=== PATIENT | female | born 1985 | race Caucasian/White ===

== ENCOUNTER 2021-08-02 12:08 | Outpatient (CLI) | payer OTHER, SELFPAY ==
--- NOTE | ~2021-08-02 | US_ITS ---
EXAMINATION: US pelvic complete w TV EXAM DATE: 08/02/2021 12:52 INDICATION: R10.2 - Pelvic and perineal pain. TECHNIQUE: Pelvic transabdominal and transvaginal sonogram was performed. There are multiple graysca le and Doppler images available for interpretation. There is no prior study for comparison. FINDINGS: Uterus measures 7.8 x 4.1 x 4.9 cm, and is morphologically normal. Endometrial stripe harvey sures 9 mm, within normal limits. There are nabothian cysts. There is no free pelvic fluid. Right adnexa: The ovary measures 2.6 x 2.0 x 1.3 cm and is morphologically normal. Ovarian vascular f low confirmed. Left adnexa: The ovary measures 2.4 x 1.4 x 1.2 cm and is morphologically normal. Ovarian vascular fl ow confirmed. IMPRESSION: 1. Unremarkable pelvic ultrasound exam. Reviewed, dictated and finalized at location B.
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
[2021-08-02 12:26] LABS: Basophils Absolute Auto 0.04 K/mm3 (0.00-0.10); Basophils Percent Auto 0.5 % (0.0-1.0); Eosinophils Absolute Auto 0.26 K/mm3 (0.02-0.50); Hematocrit 31.8 % (35.0-49.0); Hemoglobin 9.6 g/dL (12.0-15.0); Immature Granulocyte Absolute 0.03 K/mm3 (0.00-0.00); Immature Granulocyte Percent A 0.4 % (0.0-0.0); Lymphocytes Absolute Auto 2.45 K/mm3 (1.10-4.50); Lymphocytes Percent Auto 28.6 % (18.0-42.0); Mean Corpuscular HGB Conc 30.2 g/dL (32.0-36.0); Mean Corpuscular Hemoglobin 22.9 pg (27.0-31.0); Mean Corpuscular Volume 75.9 fL (78.0-102.0); Mean Platelet Volume 9.3 fl (9.2-11.8); Monocytes Absolute Auto 0.58 K/mm3 (0.10-0.90); Monocytes Percent Auto 6.8 % (2.0-11.0); Neutrophils Absolute Auto 5.2 K/mm3 (1.7-7.2); Neutrophils Percent Auto 60.7 % (50.0-70.0); Platelet Count Result 277 K/mm3 (150-420); Red Blood Count 4.19 M/mm3 (4.20-5.40); Red Cell Distribution Width 18.6 % (11.6-14.4); White Blood Count 8.6 K/mm3 (4.8-10.8)
[2021-08-02 14:49] LABS: Alanine Aminotransferase 23 U/L (14-59); Albumin Level 3.8 g/dL (3.4-5.0); Alkaline Phosphatase 71 U/L (46-116); Anion Gap 10 mmol/L (8-16); Aspartate Amino Transferase 12 U/L (15-37); Bilirubin,Total 0.2 mg/dL (0.00-1.00); Blood Urea Nitrogen 14 mg/dL (7-18); CRP < 0.2 mg/dL (0.0-0.9); Carbon Dioxide 28 mmol/L (21-32); Chloride 104 mmol/L (98-108); Cholesterol 90 mg/dL (0-200); Estimated Glomerular Filt Rate > 60; Glucose 81 mg/dL (70-99); HDL Direct 47 mg/dL (40-60); LDL Cholesterol Calculated 31 mg/dL (<130); Osmolality Calculated 293 mOsm/kg (285-295); Potassium 4.4 mmol/L (3.5-5.1); Sodium 142 mmol/L (136-145); Total Protein 6.9 g/dL (6.4-8.2); Triglycerides 62 mg/dL (0-150)
== END 2021-08-02 12:09 | disposition home or self-care (01) ==
LOC: CHSLAB 12:12
PROVIDERS: PCP Nurse Practitioner Family; Visit Provider Nurse Practitioner Family
DX: Z00.00 Encounter for general adult medical examination without abnormal findings (principal); D64.9 Anemia, unspecified; M51.9 Unspecified thoracic, thoracolumbar and lumbosacral intervertebral disc disorder; R10.2 Pelvic and perineal pain
CPT/HCPCS: 36415; 72100; 76830; 76856; 80053; 80061; 85025; 86140

== ENCOUNTER 2021-10-13 10:10 | Emergency (ER) | payer OTHER, SELFPAY ==
[2021-10-13 10:15] VITALS: BP 121/62; PULSE 97; RESP 20; TEMP 36.4; O2SAT 100
--- NOTE | 2021-10-13 10:46 | PC.NURSE ---
call to [place] [facility] de[facility] to check for DVT. ok to send pt to [place] for ultrasound now.
--- NOTE | 2021-10-13 10:49 | PC.NURSE ---
spoke with pt regarding transport to [place] for uls and return to [facility]. pt voiced understanding and agrees.
[2021-10-13] MEDS: KETOROLAC (*BKC) 60 MG/2 ML VIAL IM (11:05)
--- NOTE | 2021-10-13 11:08 | PC.NURSE ---
call for transport to [place] for ultrasound. [facility] not available . [facility] called. awaiting arrival
[2021-10-13 11:11] LABS: Basophils Absolute Auto 0.04 K/mm3 (0.00-0.10); Basophils Percent Auto 0.5 % (0.0-1.0); Eosinophils Absolute Auto 0.34 K/mm3 (0.02-0.50); Eosinophils Percent Auto 4.4 % (1.0-6.0); Hematocrit 30.8 % (35.0-49.0); Hemoglobin 9.1 g/dL (12.0-15.0); Immature Granulocyte Absolute 0.02 K/mm3 (0.00-0.00); Immature Granulocyte Percent A 0.3 % (0.0-0.0); Lymphocytes Absolute Auto 1.97 K/mm3 (1.10-4.50); Lymphocytes Percent Auto 25.7 % (18.0-42.0); Mean Corpuscular HGB Conc 29.5 g/dL (32.0-36.0); Mean Corpuscular Hemoglobin 22.9 pg (27.0-31.0); Mean Corpuscular Volume 77.4 fL (78.0-102.0); Mean Platelet Volume 9.5 fl (9.2-11.8); Monocytes Absolute Auto 0.46 K/mm3 (0.10-0.90); Neutrophils Absolute Auto 4.8 K/mm3 (1.7-7.2); Neutrophils Percent Auto 63.1 % (50.0-70.0); Platelet Count Result 276 K/mm3 (150-420); Red Blood Count 3.98 M/mm3 (4.20-5.40); Red Cell Distribution Width 16.8 % (11.6-14.4); White Blood Count 7.7 K/mm3 (4.8-10.8)
[2021-10-13 11:12] LABS: Add Urine Microscopic? YES; Appearance Urine Sl Cloudy (Clear); Bilirubin Urine Negative (Negative); Blood Urine 3+ (Negative); Color Urine Yellow (Yellow); Glucose Urine UA Negative (Negative); Ketones Urine Negative (Negative); Leukocyte Esterase Ur Trace (Negative); Nitrate Urine Negative (Negative); Protein Urine 1+ (Negative); Specific Grav Ur >= 1.030 (1.010-1.020); Urobilinogen Urine 0.2 mg/dL (0.2-1.0)
[2021-10-13 11:18] LABS: Amphetamine Screen Urine Positive (Negative); Barbiturate Screen Urine Negative (Negative); Benzodiazepines Screen Urine Negative (Negative); Cannabinoid Screen Urine Positive (Negative); Cocaine Screen Urine Negative (Negative); Methadone Screen Urine Negative (Negative); Opiate Screen Urine Negative (Negative); Phencyclidine Screen Urine Negative (Negative); Pregnancy On Board Control Positive; Urine Pregnancy Test Negative
[2021-10-13 11:19] LABS: Bacteria Urine Trace /hpf; RBC Urine 51-75 /hpf (0-2); Squamous Epithelial Cell Urine Rare /hpf (Few); WBC Urine None seen /hpf (0-3)
--- NOTE | 2021-10-13 11:23 | PC.NURSE ---
pt report to [facility] from [facility]. pt being transported to [place] for ultrasound. will await return.
[2021-10-13 11:26] LABS: Alanine Aminotransferase 19 U/L (14-59); Albumin Level 3.4 g/dL (3.4-5.0); Alkaline Phosphatase 77 U/L (46-116); Anion Gap 9 mmol/L (8-16); Aspartate Amino Transferase 12 U/L (15-37); Bilirubin,Total 0.2 mg/dL (0.00-1.00); Blood Urea Nitrogen 14 mg/dL (7-18); Calcium 8.8 mg/dL (8.5-10.1); Carbon Dioxide 26 mmol/L (21-32); Chloride 104 mmol/L (98-108); Estimated CRCL calculation 96 ml/min; Estimated Glomerular Filt Rate > 60; Glucose 95 mg/dL (70-99); Osmolality Calculated 288 mOsm/kg (285-295); Partial Thromboplastin Time 24.3 SEC (23.90-30.70); Potassium 4.1 mmol/L (3.5-5.1); Prothrombin Time 10.6 Seconds (9.50-12.10); Sodium 139 mmol/L (136-145); Total Protein 7.1 g/dL (6.4-8.2)
--- NOTE | 2021-10-13 13:14 | PC.NURSE ---
pt returns from [place] for ultrasound with [facility]. pt transferred to cot. call cody in reach.
[2021-10-13 13:30] VITALS: BP 119/72; PULSE 85; RESP 20; TEMP 37.1; O2SAT 99
[2021-10-13] MEDS: ENOXAPARIN 100 MG/ML SYRINGE (13:31)
[2021-10-13] MEDS: ENOXAPARIN 1 MG/KG 100 MG SUB-Q (13:31)
--- NOTE | 2021-10-13 13:39 | ED.EXTPRO ---
HPI - Extremity Problem General Source: patient and RN notes reviewed Mode of arrival: ambulatory Limitations: no limitations History of Present Illness Complaint: extremity pain Onset (ago): day(s) (3) Location: right and lower extremity Severity scale (1-10): 5 (5) Quality: aching, dull and constant Radiation: none Relieving factors: nothing Exacerbating factors: weight bearing Associated symptoms: denies other symptoms Related Data Allergies Allergy/AdvReac Type Severity Reaction Status Date / Time No Known Allergies Allergy Unknown Verified 08/02/21 11:27 Review of Systems Review of Systems: All systems reviewed & are unremarkable except as noted in HPI and below PMFSH Past Medical History Medical History Adult general medical examination Bronchospasm Lumbar disc disease Nicotine addiction Recurrent bronchospasm Urolithiasis Surgical History Surgical History H/O tubal ligation History of History of ureter stent Hx of lithotripsy Social History Social History Smoking status: Current every day smoker Alcohol intake: never Substance use: current Substance use type: marijuana Exam Const: General: healthy appearing and no acute distress Nutritional Appearance: obese Orientation/consciousness: patient oriented x3 HENMT: Head: normal to inspection Ears: external ears normal and TM's normal bilaterally General nose exam: Normal external nose present and Normal nares present Mouth: Yes lip normal and Yes moist mucous membranes Teeth and gingiva: dentition normal Eyes: Conjunctivae: conjunctivae normal Pupils: Equal, round and reactive pupils present EOM: EOMs intact bilaterally Neck: Neck: normal visual inspection and no lymphadenopathy Chest: Chest palpation & inspection: normal inspection of the chest Resp: Effort & Inspection: normal respiratory effort Auscultation: clear to auscultation bilaterally Cardio: Rate: regular rate Rhythm: regular rhythm GI: GI Palp: Yes Soft to palpation and No Tenderness to palpation present (GI) Percussion: Yes normal to percussion Auscultation: normal bowel sounds : General: Yes bladder normal to palpation and Yes no CVA tenderness Back/Spine/Pelvis: Back: no CVA tenderness Skin: General skin exam: normal color Rashes: no rashes Neuro: General: patient oriented x3, moves all extremities, no meningeal signs, no focal motor deficits and CN's II-XI intact bilaterally Extrem: Other: minimal right calf tenderness with no acute redness, swelling or deformity. Psych: Appearance: grossly normal and well kempt Mental Status: mental status grossly normal Affect: normal affect Thought content: Yes Normal thought content present Course Course Emergency Course: Pt was less pain-ful in the ED. Pt wanted to go home and understood the home Tx of the localized right peroneal DVT. for early PMD f/u. Reevaluation(s) Date: 10/13/21 Time: 11:07 Vital Signs Vital signs: Vital Signs Temperature 36.4 C L 10/13/21 10:15 Pulse Rate 97 10/13/21 10:15 Respiratory Rate 20 10/13/21 10:15 Blood Pressure 121/62 10/13/21 10:15 Pulse Oximetry 100 10/13/21 10:15 Temperature 37.1 C 10/13/21 13:53 Pulse Rate 85 10/13/21 13:53 Respiratory Rate 20 10/13/21 13:53 Blood Pressure 119/73 10/13/21 13:53 Pulse Oximetry 99 10/13/21 13:53 MDM - Extremity (Nontraumatic) Differential Diagnosis Differential diagnosis: Likely deep vein thrombosis of lower extremity Medical Records Attestation: I reviewed the patient's medical records. Lab Data Result diagrams: 10/13/21 10:46 10/13/21 10:46 Labs: Lab Results 10/13/21 10/13/21 10/13/21 Range/Units 10:46 10:46 10:46 WBC 7.7 (4.8-10.8) K/mm3 RBC 3.98 L (4.20-5.40) M/
[2021-10-13 13:53] VITALS: BP 119/73; PULSE 85; RESP 20; TEMP 37.1; O2SAT 99
== END 2021-10-13 14:19 | disposition home or self-care (01) ==
PROVIDERS: Emergency Provider Emergency Medicine; PCP Nurse Practitioner Family
DX: I82.409 Acute embolism and thrombosis of unspecified deep veins of unspecified lower extremity (principal)
CPT/HCPCS: 36415; 80053; 80307; 81001; 81025; 85025; 85380; 85610; 85730; 93971; 96372; 99283; 99284; J1650; J1885

== ENCOUNTER 2021-10-13 11:59 | Outpatient (CLI) | payer OTHER, SELFPAY ==
--- NOTE | ~2021-10-13 | US_ITS ---
EXAMINATION: US venous doppler LE RT DATE: 10/13/2021 12:44 INDICATION: Right lower limb pain TECHNIQUE: Grayscale ultrasound images without and with compression and Doppler ultrasound images of the right lower extremity veins were obtained. COMPARISON: None. FINDINGS: The visualized portions of right common femoral vein, profunda (deep) femoral vein, femoral vein, pop liteal vein, posterior tibial veins, gastrocnemius vein and greater saphenous vein outflow are patent . Noncompressible thrombus in the right peroneal veins. IMPRESSION: 1. [id number] deep venous thrombosis in the right peroneal veins. Reviewed, dictated and finalized at location A. FF COUNSEL IMPRESSION: 1. [id number] deep venous thrombosis in the right peroneal veins.
== END 2021-10-13 12:00 | disposition home or self-care (01) ==
PROVIDERS: PCP Nurse Practitioner Family; Visit Provider Nurse Practitioner Family
DX: I82.451 Acute embolism and thrombosis of right peroneal vein (principal)
CPT/HCPCS: 93971

== ENCOUNTER 2022-04-22 15:05 | Emergency (ER) | payer OTHER, SELFPAY ==
[2022-04-22 15:30] VITALS: BP 152/70; PULSE 87; RESP 20; TEMP 37.2; O2SAT 97
--- NOTE | 2022-04-22 15:51 | ED.DENTAL ---
HPI - Dental/Oral General Chief complaint: Dental/Oral Stated complaint: abscess in mouth Time Seen by Provider: 04/22/22 15:08 Source: patient and RN notes reviewed Mode of arrival: ambulatory Limitations: no limitations History of Present Illness MD Complaint: tooth pain Location: Tooth # (6) Onset (ago): day(s) (2) Severity: moderate Severity scale (1-10): 7 Relieving factors: NSAIDs Exacerbating factors: nothing Context: poor dental care Associated symptoms: gum swelling Treatment prior to arrival: none Related Data Allergies Allergy/AdvReac Type Severity Reaction Status Date / Time No Known Allergies Allergy Unknown Verified 04/26/22 08:05 Review of Systems Review of Systems: All systems reviewed & are unremarkable except as noted in HPI and below Constitutional: Constitutional: Reports no additional constitutional complaints Eyes: Eyes: Reports no additional eye complaints ENT: Reports system reviewed and no additional complaints, except as documented Cardiovascular: Cardiovascular: Reports no additional cardiovascular complaints Respiratory: Respiratory: Reports no additional respiratory complaints Gastrointestinal: Gastrointestinal: Reports no additional gastrointestinal complaints Genitourinary: Genitourinary: Reports no additional female genitourinary complaints Musculoskeletal: Musculoskeletal: Reports no additional musculoskeletal complaints Integumentary/Breasts: Skin/Breast: Reports system reviewed and no additional complaints, except as docu Neurologic: Reports system reviewed and no additional complaints, except as documented Psychiatric: Psychiatric: Reports no additional psychiatric complaints Endocrine: Endocrine: Reports no additional endocrine complaints Hematologic/Lymphatic: Hematologic/Lymphatic: Reports no additional hematologic/lymphatic complaints Allergic/Immunologic: Allergic/Immunologic: Reports no additional allergic/immunologic complaints PMFSH Past Medical History Medical History (Updated 05/26/22 @ 08:51 by Jonelle Castorena MD) Adult general medical examination Bronchospasm Dental caries Lumbar disc disease Nicotine addiction Recurrent bronchospasm Urolithiasis Surgical History Surgical History H/O tubal ligation History of History of ureter stent Hx of lithotripsy Social History Social History Smoking status: Current every day smoker Alcohol intake: never Substance use: current Substance use type: marijuana Exam Const: General: healthy appearing and no acute distress Nutritional Appearance: well nourished Orientation/consciousness: patient oriented x3 Limitations: no limitations HENMT: Head: normal to inspection Ears: external ears normal, TM's normal bilaterally and EAC's normal General nose exam: Normal external nose present and Normal nares present Face and sinus: normal facial exam and sinuses nontender Mouth: Yes Normal oral and palatal mucosa present and Yes moist mucous membranes Teeth and gingiva: abnormal tooth and associated gingiva (mildly swollen right upper pre-molar gum. no acute bleeding or pus.) Throat: posterior oropharynx normal Eyes: Conjunctivae: conjunctivae normal Pupils: Equal, round and reactive pupils present EOM: EOMs intact bilaterally Neck: Neck: normal visual inspection, no lymphadenopathy and no meningeal signs Chest: Chest palpation & inspection: normal inspection of the chest Resp: Effort & Inspection: normal respiratory effort Auscultation: clear to auscultation bilaterally Cardio: Rate: regular rate Rhythm: regular rhythm GI: GI Palp: Yes Soft to palpation and No Tenderness to palpation present (GI) Auscultation: normal bowel sounds : General: Yes bladder normal to palpation and Yes no CVA tenderness Bimanual exam- vagina & uterus: bladder normal to palpation Back/Spine/P
[2022-04-22] MEDS: KETOROLAC (*BKC) 60 MG/2 ML VIAL IM (16:19)
[2022-04-22] MEDS: cefTRIAXone 1 GM, LIDOCAINE HCL 1% LOCAL INJ 2.1 ML IM (16:19)
[2022-04-22 16:50] VITALS: BP 131/68; PULSE 61; RESP 20; TEMP 36.9; O2SAT 98
== END 2022-04-22 17:00 | disposition home or self-care (01) ==
PROVIDERS: Emergency Provider Emergency Medicine; PCP Nurse Practitioner Family
DX: K02.9 Dental caries, unspecified (principal); K04.7 Periapical abscess without sinus; J44.9 Chronic obstructive pulmonary disease, unspecified
CPT/HCPCS: 96372; 99283; J0696; J1885

== ENCOUNTER 2022-09-21 16:18 | Emergency (ER) | payer OTHER, SELFPAY ==
--- NOTE | ~2022-09-21 | XR_ITS ---
EXAMINATION: XR foot LT min 3V DATE: 09/21/2022 17:18 INDICATION: Puncture wound at the plantar aspect of the left foot. Assess for foreign body. TECHNIQUE: Dorsoplantar, two oblique and lateral views of the left foot were obtained. COMPARISON: None. FINDINGS: Bone alignment is normal. No fracture. Joint spaces are normal. Small plantar calcaneal spur. No kitty ical erosions or periosteal reaction. No radiopaque or lucent foreign bodies identified. IMPRESSION: 1. No acute osseous abnormality or evident foreign bodies. Of note again of material such as would be of similar density as the surrounding soft tissues and occult on plain radiographs. Reviewed, dictated and finalized at location B. IMPRESSION: 1. No acute osseous abnormality or evident foreign bodies. Of note again of mat erial such as would be of similar density as the surrounding soft tissues and o ccult on plain radiographs.
--- NOTE | 2022-09-21 16:19 | ED.LOWEXIN ---
HPI - Extremity Injury (Lower) General Chief Complaint: Extremity Injury, Upper Stated Complaint: left foot injury Time Seen by Provider: 09/21/22 16:19 Source: patient and RN notes reviewed Mode of arrival: wheelchair Limitations: no limitations History of Present Illness HPI Narrative: Patient states that she got a piece of wood that was stuck on the carpet impaled into her left foot last evening. She did not have a ride and waited till today when she could find transportation. She denies any fever chills. She continues to have severe pain on the plantar aspect of her left foot. complaint: foot injury Onset (ago): day(s) (1) Injury: Left: foot Type of Injury: puncture wound Place: home Severity: severe Relieving factors: nothing Exacerbating factors: weight bearing, movement and palpation Context: walking Associated symptoms: unable to bear weight Other symptoms: none Related Data Home Medications Medication Instructions Recorded Confirmed hydrocodone 5 mg-acetaminophen 325 1 tablet PO Q6-8H PRN pain 07/26/22 09/21/22 mg tablet Allergies Allergy/AdvReac Type Severity Reaction Status Date / Time No Known Allergies Allergy Unknown Verified 07/26/22 10:42 Review of Systems Review of Systems: All systems reviewed & are unremarkable except as noted in HPI and below PMFSH Past Medical History Medical History (Updated 09/21/22 @ 17:31 by Adithya Ling MD) Adult BMI > 30 (10/17/18) Adult general medical examination Bronchospasm Dental caries DVT (deep venous thrombosis) Lumbar disc disease Nicotine addiction Recurrent bronchospasm Urolithiasis Surgical History Surgical History H/O tubal ligation History of History of ureter stent Hx of lithotripsy Social History Social History Smoking status: Current every day smoker Alcohol intake: never Substance use: current Substance use type: marijuana Exam Const: General: healthy appearing, no acute distress and alert Nutritional Appearance: well nourished and obese Orientation/consciousness: patient oriented x3 Limitations: no limitations Other: Female tech in room during examination. HENMT: Head: normal to inspection Ears: external ears normal Face and sinus: normal facial exam Mouth: Yes moist mucous membranes Eyes: Conjunctivae: conjunctivae normal Pupils: Equal, round and reactive pupils present EOM: EOMs intact bilaterally Neck: Neck: normal visual inspection Resp: Effort & Inspection: normal respiratory effort Auscultation: clear to auscultation bilaterally Cardio: Rate: regular rate Rhythm: regular rhythm GI: GI Palp: Yes Soft to palpation and No Tenderness to palpation present (GI) Auscultation: normal bowel sounds Back/Spine/Pelvis: Cervical Spine: cervical ROM normal Thoracic/Lumbar Spine: thoraco-lumbar ROM normal Skin: General skin exam: normal color Rashes: no rashes Neuro: General: patient oriented x3, moves all extremities, no focal motor deficits and CN's II-XI intact bilaterally Speech: normal speech Extrem: General: normal exam except as noted and no clubbing, cyanosis or edema Left lower extremity: foot Details: tenderness Location: of the plantar foot Location: distally, ecchymosis plantar distal single and puncture wound plantar distal single Psych: Mental Status: mental status grossly normal Attitude: cooperative Course Vital Signs Vital signs: Vital Signs Temperature 36.5 C 09/21/22 16:22 Pulse Rate 100 09/21/22 16:22 Respiratory Rate 20 09/21/22 16:22 Blood Pressure 100/53 L 09/21/22 16:22 Pulse Oximetry 100 09/21/22 16:22 Oxygen Delivery Room Air 09/21/22 16:22 Temperature 36.9 C 09/21/22 18:08 Pulse Rate 78 09/21/22 18:08 Respiratory Rate 20 09/21/22 18:08 Blood Pressure 100/53 L 09/21/22 18:08 Pulse Oximetry 97 09/21/22 18:0
[2022-09-21 16:22] VITALS: BP 100/53; PULSE 100; RESP 20; TEMP 36.5; O2SAT 100
[2022-09-21] MEDS: LIDOCAINE HCL 1% LOCAL INJ 10 ML VIAL INFILTRATE (16:55)
[2022-09-21 18:08] VITALS: BP 100/53; PULSE 78; RESP 20; TEMP 36.9; O2SAT 97
== END 2022-09-21 17:35 | disposition home or self-care (01) ==
PROVIDERS: Emergency Provider Emergency Medicine
DX: S91.332A Puncture wound without foreign body, left foot, initial encounter (principal); W45.8XXA Other foreign body or object entering through skin, initial encounter
CPT/HCPCS: 73630; 99283

== ENCOUNTER 2022-10-08 14:31 | Emergency (ER) | payer OTHER, SELFPAY ==
--- NOTE | 2022-10-08 15:39 | PC.NURSE ---
Addendum entered by Blank Red RN 10/08/22 15:42: registration just made rn aware of patient leaving. Original Note: ER is full, patient left without being seen at 1520.
== END 2022-10-08 15:05 | disposition left against medical advice (07) ==
PROVIDERS: Emergency Provider Emergency Medicine; PCP Family Medicine
DX: Z04.9 Encounter for examination and observation for unspecified reason (principal)
CPT/HCPCS: 99199

== ENCOUNTER 2022-10-29 13:11 | Emergency (ER) | payer OTHER, SELFPAY ==
[2022-10-29 13:15] VITALS: BP 133/74; PULSE 106; RESP 18; TEMP 36.9; O2SAT 100
--- NOTE | 2022-10-29 14:04 | ED.URI ---
HPI - URI/Sore Throat General Chief Complaint: Upper Respiratory Infection Stated Complaint: Flu exposure,ear and throat sore Time Seen by Provider: 10/29/22 13:52 Source: patient Mode of arrival: ambulatory Limitations: no limitations History of Present Illness HPI Narrative: 37-year-old female smoker presents with a 2 week history of -- nasal congestion with yellow discharge -- sore throat -- cough with mucopurulent sputum -- patient developed left ear pain after she was attempting to clean her left ear. patient's nephews who visiting with diagnosed with influenza. No fever or chest pain. MD elicited complaint: cough, sore throat, rhinorrhea and nasal congestion Onset (ago): week(s) ( For past 2 weeks) Consistency: constant Severity: moderate Description of mucous: yellow Able to tolerate fluids by mouth: No Exacerbating factors: nothing Relieving factors: nothing Context: sick contacts Associated symptoms: rhinorrhea, nasal congestion, sore throat, cough and ear pain Related Data Allergies Allergy/AdvReac Type Severity Reaction Status Date / Time No Known Allergies Allergy Unknown Verified 10/29/22 13:29 Review of Systems Review of Systems: All systems reviewed & are unremarkable except as noted in HPI and below Constitutional: Constitutional: Reports as per HPI and Reports no additional constitutional complaints Eyes: Eyes: Reports as per HPI and Reports no additional eye complaints ENT: Reports system reviewed and no additional complaints, except as documented, Reports nasal congestion and Reports sore throat Cardiovascular: Cardiovascular: Reports as per HPI and Reports no additional cardiovascular complaints Respiratory: Respiratory: Reports as per HPI, Reports no additional respiratory complaints, Reports chest congestion and Reports cough Gastrointestinal: Gastrointestinal: Reports as per HPI and Reports no additional gastrointestinal complaints Genitourinary: Genitourinary: Reports no additional female genitourinary complaints and Reports as per HPI Musculoskeletal: Musculoskeletal: Reports no additional musculoskeletal complaints and Reports as per HPI Integumentary/Breasts: Skin/Breast: Reports system reviewed and no additional complaints, except as docu and Reports as per HPI Neurologic: Reports system reviewed and no additional complaints, except as documented and Reports as per HPI Psychiatric: Psychiatric: Reports no additional psychiatric complaints and Reports as per HPI Endocrine: Endocrine: Reports no additional endocrine complaints and Reports as per HPI Hematologic/Lymphatic: Hematologic/Lymphatic: Reports no additional hematologic/lymphatic complaints and Reports as per HPI Allergic/Immunologic: Allergic/Immunologic: Reports no additional allergic/immunologic complaints and Reports as per [facility] Past Medical History Medical History Adult BMI > 30 (10/17/18) Adult general medical examination Bronchospasm Dental caries DVT (deep venous thrombosis) Lumbar disc disease Nicotine addiction Recurrent bronchospasm Urolithiasis Surgical History Surgical History H/O tubal ligation History of History of ureter stent Hx of lithotripsy Social History Social History Smoking status: Current every day smoker Alcohol intake: never Substance use: current Substance use type: marijuana Exam Const: General: healthy appearing and no acute distress Nutritional Appearance: well nourished Orientation/consciousness: patient oriented x3 Limitations: no limitations HENMT: Head: normal to inspection Ears: external ears normal ( Left ear otitis externa. Right ear canal has wax which obscures the tymp) Face/Nose/Sinus: Normal external nose present Face and sinus: normal facial exam Mouth: Yes Normal oral a
[2022-10-29] MEDS: KETOROLAC 30 MG/ML VIAL (*BKC) IM (14:17)
--- NOTE | 2022-10-29 14:21 | PC.NURSE ---
PT IS SITTING ON STRETCHER WATCHING TV AT THIS TIME AWAITING RESULTS. PT HAS HER LEFT HAND OVER HER EAR AT THIS TIME. MEDICATION GIVEN ORDERED WITHOUT DIFFICULTY. WILL CONTINUE TO MONITOR. PT DENIES ANY NEEDS OR COMPLAINTS AT PRESENT.
[2022-10-29 14:47] LABS: Influenza A QL RT-PCR Positive (Negative); Influenza B QL RT-PCR Negative (Negative); RSV RNA, RT-PCR Negative (Negative); SARS-CoV-2 RNA PCR Negative (Negative)
[2022-10-29 15:01] VITALS: BP 121/60; PULSE 93; RESP 16; TEMP 37.2; O2SAT 100
[2022-10-29 15:22] LABS: Strep Group A RT-PCR Not Detected (Negative)
== END 2022-10-29 15:01 | disposition home or self-care (01) ==
PROVIDERS: Emergency Provider Internal Medicine Critical Care Medicine; PCP Family Medicine
DX: J11.1 Influenza due to unidentified influenza virus with other respiratory manifestations (principal); H60.92 Unspecified otitis externa, left ear; Z20.822 Contact with and (suspected) exposure to COVID-19
CPT/HCPCS: 87637; 87651; 96372; 99283; J1885

== ENCOUNTER 2022-11-05 18:09 | Emergency (ER) | payer OTHER, SELFPAY ==
--- NOTE | 2022-11-05 18:23 | ED.EAR ---
HPI - Ear Problem General Chief complaint: Ear Stated complaint: possible ear infection, unable to hear Time Seen by Provider: 11/05/22 18:23 Source: patient and RN notes reviewed Mode of arrival: ambulatory Limitations: no limitations History of Present Illness Complaint: decreased hearing Location: right ear Duration: constant Severity: moderate Relieving factors: nothing Exacerbating factors: nothing Discharge from ear: Reports no Associated symptoms ear: decreased hearing Treatment prior to arrival: none Related Data Allergies Allergy/AdvReac Type Severity Reaction Status Date / Time No Known Allergies Allergy Unknown Verified 11/05/22 18:38 Review of Systems Review of Systems: All systems reviewed & are unremarkable except as noted in HPI and below PMFSH Past Medical History Medical History Adult BMI > 30 (10/17/18) Adult general medical examination Bronchospasm Dental caries DVT (deep venous thrombosis) Lumbar disc disease Nicotine addiction Recurrent bronchospasm Urolithiasis Surgical History Surgical History H/O tubal ligation History of History of ureter stent Hx of lithotripsy Social History Social History Smoking status: Current every day smoker Alcohol intake: never Substance use: current Substance use type: marijuana Exam Const: General: healthy appearing, no acute distress and alert Nutritional Appearance: well nourished and obese morbidly obese Orientation/consciousness: patient oriented x3 Limitations: no limitations HENMT: Head: normal to inspection Ears: TM normal on the left and Abnormal EAC present excessive cerumen on the left; no EA tenderness Eyes: Conjunctivae: conjunctivae normal Pupils: Equal, round and reactive pupils present EOM: EOMs intact bilaterally Neck: Neck: normal visual inspection Resp: Effort & Inspection: normal respiratory effort Auscultation: clear to auscultation bilaterally Cardio: Rate: regular rate Rhythm: regular rhythm GI: GI Palp: Yes Soft to palpation and No Tenderness to palpation present (GI) Auscultation: normal bowel sounds Back/Spine/Pelvis: Cervical Spine: cervical ROM normal Thoracic/Lumbar Spine: thoraco-lumbar ROM normal Skin: General skin exam: normal color Neuro: General: patient oriented x3, moves all extremities, no focal motor deficits and CN's II-XI intact bilaterally Speech: normal speech Gait exam (Neuro): Normal gait present Extrem: General: normal to inspection and no clubbing, cyanosis or edema Psych: Mental Status: mental status grossly normal Affect: normal affect Attitude: cooperative Course Course Emergency Course: Nurse was able to use peroxide and warm water to flush out the cerumen from the ear canal. Patient can now hear better. Vital Signs Vital signs: Vital Signs Temperature 38.9 C H 11/05/22 18:28 Pulse Rate 91 11/05/22 18:28 Respiratory Rate 18 11/05/22 18:28 Blood Pressure 138/91 H 11/05/22 18:28 Pulse Oximetry 99 11/05/22 18:28 Oxygen Delivery Room Air 11/05/22 18:28 Temperature 38.9 C H 11/05/22 18:28 Pulse Rate 91 11/05/22 18:28 Respiratory Rate 18 11/05/22 18:28 Blood Pressure 138/91 H 11/05/22 18:28 Pulse Oximetry 99 11/05/22 18:28 Oxygen Delivery Room Air 11/05/22 18:28 Medical Decision Making Vital Signs Vital Signs: Vital Signs Temperature 38.9 C H 11/05/22 18:28 Pulse Rate 91 11/05/22 18:28 Respiratory Rate 18 11/05/22 18:28 Blood Pressure 138/91 H 11/05/22 18:28 Pulse Oximetry 99 11/05/22 18:28 Oxygen Delivery Room Air 11/05/22 18:28 Temperature 38.9 C H 11/05/22 18:28 Pulse Rate 91 11/05/22 18:28 Respiratory Rate 18 11/05/22 18:28 Blood Pressure 138/91 H 11/05/22 18:28 Pulse Oximetry 99 11/05/22 18:28 Oxygen Delive
[2022-11-05 18:28] VITALS: BP 138/91; PULSE 91; RESP 18; TEMP 38.9; O2SAT 99
--- NOTE | 2022-11-05 18:57 | PC.NURSE ---
After pt soaked ear with peroxide for about 10 minutes, irrigated right ear with elephant ear/warm water and was able to clear the wax out, pt able to hear now.
[2022-11-05 19:20] VITALS: BP 130/74; PULSE 87; RESP 18; TEMP 36.7; O2SAT 99
== END 2022-11-05 19:27 | disposition home or self-care (01) ==
PROVIDERS: Emergency Provider Emergency Medicine
DX: H61.21 Impacted cerumen, right ear (principal); F17.200 Nicotine dependence, unspecified, uncomplicated
CPT/HCPCS: 69209; 99282

== ENCOUNTER 2022-12-17 18:00 | Emergency (ER) | payer OTHER, SELFPAY ==
[2022-12-17 18:11] VITALS: BP 143/93; PULSE 110; RESP 16; TEMP 36.6; O2SAT 99
--- NOTE | 2022-12-17 18:15 | ED.FEMALEGU ---
HPI - Female Genitourinary General Chief complaint: Vaginal Bleeding Stated complaint: period since new years yuriy Time Seen by Provider: 12/17/22 18:15 Source: patient Mode of arrival: ambulatory Limitations: no limitations History of Present Illness HPI Narrative: 37-year-old female smoker with extensive dental caries, kidney stones, intermittent bronchospasm, right peroneal DVT diagnosed on 10/13/2022 on Eliquis( the patient stopped taking Eliquis 1 week ago as she ran out of her medication) presents to the ER with -- ongoing vaginal bleeding since 11/17/2022. Her bleeding transiently improved but lately she has been passing blood clots. -- Feels lightheaded and dizzy for the past 1 week. No abdominal pain. Patient is A0 status post BTL. MD elicited complaint: vaginal bleeding Pertinent past history: tubal ligation Onset (ago): month(s) ( One month ago) Severity: severe Vaginal bleeding: heavy Exacerbating factors: none Relieving factors: none Associated symptoms: other ( lightheaded and dizzy) Patient : No Date of Last Menstrual Period: 11/17/22 Related Data Home Medications Medication Instructions Recorded Confirmed No Home Medications 12/17/22 12/17/22 Allergies Allergy/AdvReac Type Severity Reaction Status Date / Time No Known Allergies Allergy Unknown Verified 12/17/22 18:16 Review of Systems Review of Systems: All systems reviewed & are unremarkable except as noted in HPI and below Constitutional: Constitutional: Reports as per HPI and Reports no additional constitutional complaints Eyes: Eyes: Reports as per HPI and Reports no additional eye complaints ENT: Reports system reviewed and no additional complaints, except as documented and Reports as per HPI Cardiovascular: Cardiovascular: Reports as per HPI and Reports no additional cardiovascular complaints Respiratory: Respiratory: Reports as per HPI and Reports no additional respiratory complaints Gastrointestinal: Gastrointestinal: Reports as per HPI and Reports no additional gastrointestinal complaints Genitourinary: Genitourinary: Reports no additional female genitourinary complaints and Reports abnormal vaginal bleeding Musculoskeletal: Musculoskeletal: Reports no additional musculoskeletal complaints and Reports as per HPI Integumentary/Breasts: Skin/Breast: Reports system reviewed and no additional complaints, except as docu and Reports as per HPI Neurologic: Reports system reviewed and no additional complaints, except as documented and Reports as per HPI Psychiatric: Psychiatric: Reports no additional psychiatric complaints and Reports as per HPI Endocrine: Endocrine: Reports no additional endocrine complaints and Reports as per HPI Hematologic/Lymphatic: Hematologic/Lymphatic: Reports no additional hematologic/lymphatic complaints and Reports as per HPI Allergic/Immunologic: Allergic/Immunologic: Reports no additional allergic/immunologic complaints and Reports as per HPI PMFSH Past Medical History Medical History Adult BMI > 30 (10/17/18) Adult general medical examination Bronchospasm Dental caries DVT (deep venous thrombosis) Lumbar disc disease Nicotine addiction Recurrent bronchospasm Urolithiasis Surgical History Surgical History H/O tubal ligation History of History of ureter stent Hx of lithotripsy Social History Social History Smoking status: Current every day smoker Alcohol intake: never Substance use: current Substance use type: marijuana Living arrangements: with family Exam Narrative: patient is not orthostatic. Const: General: no acute distress Nutritional Appearance: well nourished Orientation/consciousness: patient oriented x3 Limitations: no limitations HENMT: Head: normal to inspection Ea
[2022-12-17 18:52] LABS: Basophils Absolute Auto 0.03 K/mm3 (0.00-0.10); Basophils Percent Auto 0.4 % (0.0-1.0); Eosinophils Absolute Auto 0.23 K/mm3 (0.02-0.50); Eosinophils Percent Auto 2.8 % (1.0-6.0); Hematocrit 39.2 % (35.0-49.0); Hemoglobin 11.6 g/dL (12.0-15.0); Immature Granulocyte Absolute 0.02 K/mm3 (0.00-0.00); Immature Granulocyte Percent A 0.2 % (0.0-0.0); Lymphocytes Absolute Auto 1.82 K/mm3 (1.10-4.50); Lymphocytes Percent Auto 22.1 % (18.0-42.0); Mean Corpuscular HGB Conc 29.6 g/dL (32.0-36.0); Mean Corpuscular Volume 77.8 fL (78.0-102.0); Mean Platelet Volume 9.8 fl (9.2-11.8); Monocytes Absolute Auto 0.49 K/mm3 (0.10-0.90); Neutrophils Absolute Auto 5.6 K/mm3 (1.7-7.2); Neutrophils Percent Auto 68.5 % (50.0-70.0); Platelet Count Result 308 K/mm3 (150-420); Red Blood Count 5.04 M/mm3 (4.20-5.40); Red Cell Distribution Width 17.3 % (11.6-14.4); White Blood Count 8.2 K/mm3 (4.8-10.8)
[2022-12-17 19:07] LABS: Partial Thromboplastin Time 28.4 SEC (23.90-30.70); Prothrombin Time 11.2 Seconds (9.50-12.10)
[2022-12-17 19:13] LABS: Lactic Acid Reflex 1.4 mmol/L (0.4-2.0)
[2022-12-17 19:16] LABS: Alanine Aminotransferase 36 U/L (14-59); Albumin Level 3.6 g/dL (3.4-5.0); Alkaline Phosphatase 86 U/L (46-116); Anion Gap 9 mmol/L (8-16); Aspartate Amino Transferase 20 U/L (15-37); Bilirubin,Total 0.2 mg/dL (0.00-1.00); Blood Urea Nitrogen 10 mg/dL (7-18); Calcium 8.7 mg/dL (8.5-10.1); Carbon Dioxide 28 mmol/L (21-32); Chloride 104 mmol/L (98-108); Estimated Glomerular Filt Rate > 60; Glucose 109 mg/dL (70-99); Osmolality Calculated 292 mOsm/kg (285-295); Potassium 3.9 mmol/L (3.5-5.1); Sodium 141 mmol/L (136-145); Thyroid Stimulating Hormone 0.68 uIU/mL (0.36-3.74); Total Protein 7.5 g/dL (6.4-8.2)
[2022-12-17 19:26] LABS: SPREG INTERNAL CONTROL Positive; Serum Qual hCG Negative
[2022-12-17 19:37] VITALS: BP 137/87; PULSE 91; O2SAT 100
== END 2022-12-17 19:41 | disposition home or self-care (01) ==
PROVIDERS: Emergency Provider Internal Medicine Critical Care Medicine
DX: N92.0 Excessive and frequent menstruation with regular cycle (principal); D62 Acute posthemorrhagic anemia; F17.200 Nicotine dependence, unspecified, uncomplicated; Z86.718 Personal history of other venous thrombosis and embolism
CPT/HCPCS: 36415; 80053; 83605; 84443; 84703; 85025; 85610; 85730; 99283

== ENCOUNTER 2023-01-09 15:54 | Outpatient (CLI) | payer OTHER, SELFPAY ==
--- NOTE | ~2023-01-09 | XR_ITS ---
EXAMINATION: XR chest 2V 01/09/2023 16:30 INDICATION: Shortness of breath PROCEDURE: 2 view chest COMPARISON: Comparison to multiple prior studies sequentially, with oldest reviewed study dated 05/16/2006. FINDINGS: The lungs are clear. The cardiomediastinal silhouette is within normal limits. There are no pleural effusions. There is no pneumothorax suspected. IMPRESSION: 1: NO ACUTE CARDIOPULMONARY DISEASE. Reviewed, dictated and finalized at location B. 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
[2023-01-09 16:18] LABS: Basophils Absolute Auto 0.05 K/mm3 (0.00-0.10); Basophils Percent Auto 0.5 % (0.0-1.0); Eosinophils Absolute Auto 0.14 K/mm3 (0.02-0.50); Eosinophils Percent Auto 1.3 % (1.0-6.0); Hematocrit 27.6 % (35.0-49.0); Hemoglobin 7.9 g/dL (12.0-15.0); Immature Granulocyte Absolute 0.04 K/mm3 (0.00-0.00); Immature Granulocyte Percent A 0.4 % (0.0-0.0); Lymphocytes Absolute Auto 1.71 K/mm3 (1.10-4.50); Lymphocytes Percent Auto 16.4 % (18.0-42.0); Mean Corpuscular HGB Conc 28.6 g/dL (32.0-36.0); Mean Corpuscular Hemoglobin 21.8 pg (27.0-31.0); Mean Corpuscular Volume 76.2 fL (78.0-102.0); Mean Platelet Volume 10.2 fl (9.2-11.8); Monocytes Absolute Auto 0.65 K/mm3 (0.10-0.90); Monocytes Percent Auto 6.2 % (2.0-11.0); Neutrophils Absolute Auto 7.8 K/mm3 (1.7-7.2); Neutrophils Percent Auto 75.2 % (50.0-70.0); Platelet Count Result 302 K/mm3 (150-420); Red Blood Count 3.62 M/mm3 (4.20-5.40); Red Cell Distribution Width 16.5 % (11.6-14.4); White Blood Count 10.4 K/mm3 (4.8-10.8)
[2023-01-09 16:41] LABS: HIV 1 P24 AG Negative (Negative); HIV 1/2 AB Negative (Negative)
[2023-01-09 16:47] LABS: Ferritin 3 ng/mL (8-252); Iron 10 ug/dL (50-170); Percent Iron Saturation 2 % (12-57)
[2023-01-11 16:54] LABS: RPR Screen Non-Reactive (Non-Reactive)
[2023-01-13 03:00] LABS: Hepatitis C Signal to Cutoff 0.01 ratio (<1.00); Hepatitis C Virus Antibody Nonreactive (Nonreactive)
[2023-01-15 14:55] LABS: HSV 1 IgM Screen Negative (Negative); HSV 2 IgM Screen Negative (Negative)
== END 2023-01-09 15:55 | disposition home or self-care (01) ==
LOC: CHSLAB 15:56
PROVIDERS: PCP Nurse Practitioner Family; Visit Provider Nurse Practitioner Family
DX: D64.9 Anemia, unspecified (principal); I82.409 Acute embolism and thrombosis of unspecified deep veins of unspecified lower extremity; Z11.3 Encounter for screening for infections with a predominantly sexual mode of transmission
CPT/HCPCS: 36415; 71046; 82728; 83540; 83550; 85025; 86592; 86695; 86696; 86703; 86803; 87491; 87591

== ENCOUNTER 2023-01-11 10:27 | Outpatient (CLI) | payer OTHER, SELFPAY ==
--- NOTE | ~2023-01-11 | US_ITS ---
Pelvic ultrasound. Clinical History: Excessive and frequent menstruation Technique: Realtime transabdominal and transvaginal scanning of the pelvis was performed. Color flow Doppler and Doppler spectral analysis were performed. Findings: The uterus is anteverted. The endometrial stripe has a thickness of 8 mm. There is a 1.1 x 1.2 cm hyperechoic possible mass at the distal endometrial cavity, which could reflect endometrial p olyp or possibly some mucosal fibroid. Neither ovary seen. No adnexal mass seen. There is no evidence of free fluid in the cul de sac. Impression: Questionable 1.1 x 1.2 cm endometrial polyp or subserosal fibroid. Consider sonohysterogram, MR, or h ysteroscopy for further evaluation. Reviewed, dictated and finalized at location . 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 Consider son ohysterogram, MR, or hysteroscopy for further evaluation.
== END 2023-01-11 10:28 | disposition home or self-care (01) ==
LOC: CHSIMG 10:29
PROVIDERS: PCP Nurse Practitioner Family; Visit Provider Nurse Practitioner Family
DX: N92.0 Excessive and frequent menstruation with regular cycle (principal)
CPT/HCPCS: 76830; 76856

== ENCOUNTER 2023-01-15 23:45 | Emergency (ER) | payer OTHER, SELFPAY ==
[2023-01-15 23:53] VITALS: BP 147/71; PULSE 112; RESP 20; TEMP 37.2; O2SAT 100
--- NOTE | 2023-01-16 00:01 | ED.DENTAL ---
HPI - Dental/Oral General Chief complaint: Dental/Oral Stated complaint: Trouble Breathing Time Seen by Provider: 01/15/23 23:58 Source: patient and RN notes reviewed Mode of arrival: ambulatory Limitations: no limitations History of Present Illness Complaint: tooth pain Location: Tooth # (14) Onset (ago): day(s) (1) Duration: constant Severity: moderate Relieving factors: nothing Exacerbating factors: chewing Context: history of dental caries Associated symptoms: gum swelling Treatment prior to arrival: none Related Data Allergies Allergy/AdvReac Type Severity Reaction Status Date / Time No Known Allergies Allergy Unknown Verified 01/16/23 00:03 Review of Systems Review of Systems: All systems reviewed & are unremarkable except as noted in HPI and below Constitutional: Constitutional: Denies chills and Denies fever(s) PMFSH Past Medical History Medical History Adult BMI > 30 (10/17/18) Adult general medical examination Bronchospasm Dental caries DVT (deep venous thrombosis) Lumbar disc disease Nicotine addiction Recurrent bronchospasm Urolithiasis Surgical History Surgical History H/O tubal ligation History of History of ureter stent Hx of lithotripsy Social History Social History Smoking status: Current every day smoker Alcohol intake: never Substance use: current Substance use type: marijuana Living arrangements: with family Exam Const: General: healthy appearing, no acute distress and alert Nutritional Appearance: well nourished and obese morbidly obese Orientation/consciousness: patient oriented x3 Limitations: no limitations Other: Female tech in the room during examination HENMT: Head: normal to inspection Ears: hearing grossly normal bilaterally and external ears normal Face and sinus: Facial tenderness on exam of face and sinuses on the left maxilla Mouth: Yes Normal oral and palatal mucosa present and Yes moist mucous membranes Teeth image: 1. gum erythema with surrounding gum edema with mild fluctuation. Throat: posterior oropharynx normal Eyes: Conjunctivae: conjunctivae normal Pupils: Equal, round and reactive pupils present EOM: EOMs intact bilaterally Neck: Neck: normal visual inspection Resp: Effort & Inspection: normal respiratory effort Auscultation: clear to auscultation bilaterally Cardio: Rate: regular rate Rhythm: regular rhythm GI: GI Palp: Yes Soft to palpation and No Tenderness to palpation present (GI) Auscultation: normal bowel sounds Back/Spine/Pelvis: Cervical Spine: cervical ROM normal Thoracic/Lumbar Spine: thoraco-lumbar ROM normal Skin: General skin exam: normal color Rashes: no rashes Neuro: General: patient oriented x3, moves all extremities, no focal motor deficits and CN's II-XI intact bilaterally Speech: normal speech Gait exam (Neuro): Normal gait present Extrem: General: normal to inspection and no clubbing, cyanosis or edema Psych: Mental Status: mental status grossly normal Affect: Anxious affect present Attitude: cooperative Course Vital Signs Vital signs: Vital Signs Temperature 37.2 C 01/15/23 23:53 Pulse Rate 112 H 01/15/23 23:53 Respiratory Rate 01/15/23 23:53 Blood Pressure 147/71 H 01/15/23 23:53 Pulse Oximetry 100 01/15/23 23:53 Oxygen Delivery Room Air 01/15/23 23:53 Temperature 37.2 C 01/15/23 23:53 Pulse Rate 112 H 01/15/23 23:53 Respiratory Rate 01/15/23 23:53 Blood Pressure 147/71 H 01/15/23 23:53 Pulse Oximetry 100 01/15/23 23:53 Oxygen Delivery Room Air 01/15/23 23:53 MDM - Dental/Oral Differential Diagnosis Differential diagnosis: Likely gingival abscess, dental caries, toothache and dental abscess Discharge Plan Discharge Clinical Impression: Dental abscess P
--- NOTE | 2023-01-16 00:06 | PC.NURSE ---
Assisted Dr with a patient exam.
[2023-01-16] MEDS: AMOXICILLIN 500 MG CAPSULE PO (00:09)
== END 2023-01-16 00:18 | disposition home or self-care (01) ==
PROVIDERS: Emergency Provider Emergency Medicine; PCP Family Medicine
DX: K04.7 Periapical abscess without sinus (principal); F17.200 Nicotine dependence, unspecified, uncomplicated; Z86.718 Personal history of other venous thrombosis and embolism
CPT/HCPCS: 99283; A9270

== ENCOUNTER 2023-04-05 01:38 | Day surgery (SDC) | payer OTHER, SELFPAY ==
[2023-03-18 14:23] VITALS: BMI 36.1
--- NOTE | 2023-03-18 14:27 | PC.NURSE ---
Report to the Outpatient Waiting Room, entrance under the green pavilion located off [facility], at time 0630 on date 03/22/23. Planned Procedure Time: 0830. Time changes happen often and if your time is changed the preop area will call you the afternoon before. - You and your visitor will be asked to self-screen and do not enter if you have any COVID symptoms. - A mask is optional within the hospital at this time. Patients may have clear liquids (water, carbonated beverages, clear teas, apple juice) until 3 hours prior to surgery with a maximum of 20 ounces. - No food from midnight until time of surgery - Infants may have breast milk until 4 hours before surgery, infant formula 6 hours prior to surgery. - Children will be allowed to drink immediately following surgery. If applicable, please bring a bottle or sippy cup to assist with drinking. Juice, water, soda, and popsicles are readily available. For infants on formula, please bring formula the day of surgery. Pacifiers are allowed. Take the following medications with a SIP of water the morning of surgery: INHALER IF NEEDED DO NOT STOP ANY OF YOUR OTHER PRESCRIPTION MEDICATIONS PRIOR TO SURGERY EXCEPT THE FOLLOWING Medications to discontinue per physician: N/A Date to take last dose: N/A Please no make-up, nail albanian, hairspray, perfume, deodorant, or body powder the day of surgery. No jewelry (including any body piercings) or valuables the day of surgery, leave them at home. Please take a shower or bath the night before, or the morning of, surgery with an antibacterial soap. Wear comfortable, loose fitting clothing. - Jewelry must be removed prior to entering the operating room. Rings and piercings that are not removed may be cut off. - The hospital will not accept responsibility for valuables. - Please leave all valuables, including medications, at home the day of surgery. If you are going home after surgery, a licensed lifter/driver must drive you home. - NO public transportation without another adult if you receive anesthesia. - We recommend that an adult stay with you for 24 hours following discharge. - We also recommend that you do not drive, make important decision, drink alcoholic beverages, or take any drugs that were not prescribed by your health care provider for at least 24 hours after your discharge time. Follow any additional instructions given to you from your surgeon. If you or anyone in your household have experienced Covid symptoms in the past week, please notify your surgeon or the nurse liaison at the phone number below for possible testing. Telephone instructions given to DARNELL COUCH and asked if any additional questions and then verbalized understanding. Patient advised to call surgeon office or pre surgery nurse liaison [phone] if any additional questions.
--- NOTE | 2023-03-19 12:28 | PM.IMHP ---
H&P: HPI History of Present Illness Date/Time: 03/19/23 12:28 Chief Complaint: Excessive bleeding and suspected polyp Narrative: This is a 38-year-old female admitted for hysteroscopy dilatation curettage status post tubal ligation has what appears to be a polyp in the years. She has a hemoglobin 7 point has had normal Paps. She is admitted for hysteroscopy polypectomy D&C. If this appears to be benign she lateral inner OS well. Risks and benefits of this procedure reviewed his gluteal but not exclusive of , aspiration ligament bleeding, transfusion, perforation of her bowel, bladder, ureters, or other internal organs with need for open laparotomy. She received the [facility] handouts entitled hysteroscopy as well as dilatation curettage respectively. She received the Florinda handout and had questions answered to that. She asked to proceed PMFSH Past Medical History Medical History Adult BMI > 30 (10/17/18) Adult general medical examination Bronchospasm Dental caries DVT (deep venous thrombosis) Lumbar disc disease Nicotine addiction Recurrent bronchospasm Urolithiasis Surgical History Surgical History H/O tubal ligation History of History of ureter stent Hx of lithotripsy Social History Social History Years smoked: 5 Smoking status: Current every day smoker Tobacco type: cigarettes Alcohol intake: never Substance use: current Substance use type: marijuana Living arrangements: with family Additional living arrangements comments: MOM Spiritual care concerns: No Meds Home Medications and Allergies Home Medications Medication Instructions Recorded Confirmed Type albuterol sulfate 90 mcg/actuation 1 puff inhalation Q4-6H PRN 01/10/23 03/18/23 Rx aerosol inhaler shortness of breath or wheezing #8.5 grams Allergies Allergy/AdvReac Type Severity Reaction Status Date / Time No Known Allergies Allergy Unknown Verified 03/18/23 14:21 Exam Const: General: cooperative, healthy appearing, comfortable and overweight Orientation/consciousness: oriented to person, oriented to place and oriented to time HENMT: Head: normal to inspection Resp: Effort & Inspection: normal respiratory effort Cardio: Rate: regular rate Rhythm: regular rhythm Heart sounds: S1 normal heart sound present and S2 normal heart sound present GI: Inspection: normal to inspection Auscultation: normal bowel sounds : Speculum Exam - Cervix: normal appearance of the cervix Bimanual exam- vagina & uterus: enlarged Bimanual Exam- Adnexa, other: normal adnexae Assessment and Plan Assessment and plan (1) Excessive bleeding: Code(s): R58 - Hemorrhage, not elsewhere classified Status: Acute Plan Hysteroscopy/dilatation curettage/polypectomy/possible Florinda ablation
--- NOTE | 2023-03-21 13:45 | WPDANESEPPF ---
Anes - Initial Pre Proc Eval Procedure: Operation Date: 03/22/23 08:30 Proposed Procedures p Hysteroscopy Dilation and Curettage with Florinda Endometrial Ablation - Velasquez Parada MD Date/Time: 03/21/23 13:45 Surgeon: Velasquez Parada MD Pre Op Diagnosis: excessive bleeding, uterine polyp Patient Data Age: 38 Gender: F Height: 1.63 m Weight: 95.5 kg Allergies Allergy/AdvReac Type Severity Reaction Status Date / Time No Known Allergies Allergy Unknown Verified 03/18/23 14:21 Home Medications Medication Instructions Recorded Confirmed Type albuterol sulfate 90 mcg/actuation 1 puff inhalation Q4-6H PRN 01/10/23 03/18/23 Rx aerosol inhaler shortness of breath or wheezing #8.5 grams Results Review: All pre-operative results and documents have been reviewed as part of the pre-operative evaluation. [facility] Past Medical History Medical History Adult BMI > 30 (10/17/18) Adult general medical examination Bronchospasm Dental caries DVT (deep venous thrombosis) Lumbar disc disease Nicotine addiction Recurrent bronchospasm Urolithiasis Surgical History Surgical History H/O tubal ligation History of History of ureter stent Hx of lithotripsy Social History Social History Years smoked: 5 Smoking status: Current every day smoker Tobacco type: cigarettes Alcohol intake: never Substance use: current Substance use type: marijuana Living arrangements: with family Additional living arrangements comments: MOM Spiritual care concerns: No Anes - Eval Final PreProcedure Day of Procedure 03/21/23 13:45 Patient weight: obese Heart: regular rate and rhythm Lungs: clear to auscultation and normal air movement Airway: Mallampati scale class II Neurological: alert and oriented Last oral intake: >/= 8 hours ASA classification: II Emergent: no Anesthetic plan: proceed Anesthesia type and monitoring: general GIVS Results Review: All pre-operative results and documents have been reviewed as part of the pre-operative evaluation. Informed Consent: The patient's anesthetic plan and its attendant risks and benefits were discussed with the patient/family/POA. Questions were solicited and answers provided to the satisfaction of the patient/family/POA.
--- NOTE | 2023-03-22 06:01 | WPDHPUPDATE1 ---
History and Physical Update Update Date/Time: 03/22/23 06:01 History and Physical has been reviewed, including an updated exam of the patient. There are NO changes in the patient's condition. Risks, benefits, and alternatives have been discussed and questions answered. Patient agrees to proceed with procedure.
[2023-03-27 14:36] VITALS: BMI 37.8
--- NOTE | 2023-04-03 16:39 | P.HP_ITS ---
H&P: HPI History of Present Illness Date/Time: 04/03/23 16:39 Chief Complaint: Excessive bleeding Narrative: This is a 38-year-old female with excessive heavy bleeding. [facility] She underwent ultrasound which showed a 2cm mass inside the uterus. So she has had significant bleeding her hemoglobin was down to 7.9 she is admitted for hysteroscopy and dilatation curettage. Risks and benefits reviewed including exclusive of aspiration pneumonia bleeding, transfusion, perforation injury to bowel, bladder, ureters, or other broad organs with need for open laparotomy. She had all questions answered and asked to proceed PMFSH Past Medical History Medical History Adult BMI > 30 (10/17/18) Adult general medical examination Bronchospasm Dental caries DVT (deep venous thrombosis) Lumbar disc disease Nicotine addiction Recurrent bronchospasm Urolithiasis Surgical History Surgical History H/O tubal ligation History of History of ureter stent Hx of lithotripsy Social History Social History Years smoked: 5 Smoking status: Current every day smoker Tobacco type: cigarettes Additional smoking assessment comments: 3 cigarettes a day/7 years Alcohol intake: never Substance use: current Substance use type: marijuana Other substance usage details: daily smoking Living arrangements: with family Additional living arrangements comments: MOM Spiritual care concerns: No Meds Home Medications and Allergies Home Medications Medication Instructions Recorded Confirmed Type albuterol sulfate 90 mcg/actuation 1 puff inhalation Q4-6H PRN 01/10/23 03/18/23 Rx aerosol inhaler shortness of breath or wheezing #8.5 grams Allergies Allergy/AdvReac Type Severity Reaction Status Date / Time No Known Allergies Allergy Unknown Verified 03/27/23 14:15 Exam Const: General: cooperative, healthy appearing and comfortable Nutritional Appearance: overweight Orientation/consciousness: oriented to person, orien lindsey to place and oriented to time Resp: Effort & Inspection: normal respiratory effort Cardio: Rate: regular rate Rhythm: regular rhythm Heart sounds: S1 normal heart sound present and S2 normal heart sound present GI: Inspection: normal to inspection : External Female Exam: normal external appearance Speculum Exam - Vagina: normal appearance of the vagina Speculum Exam - Cervix: normal appearance of the cervix Bimanual exam- vagina & uterus: enlarged Bimanual Exam- Adnexa, other: normal adnexae Assessment and Plan Assessment and plan (1) Excessive bleeding: Code(s): R58 - Hemorrhage, not elsewhere classified Status: Acute (2) Iron deficiency anemia: Code(s): D50.9 - Iron deficiency anemia, unspecified Status: Acute (3) Heavy menstrual bleeding: Code(s): N92.0 - Excessive and frequent menstruation with regular cycle Status: Acute Plan Hysteroscopy/dilatation and curettage/polypectomy. Will also proceed with Florinda if looks feasible
--- NOTE | 2023-04-04 10:05 | P.PNAN_ITS ---
Anes - Initial Pre Proc Eval Procedure: Operation Date: 04/05/23 12:00 Proposed Procedures p Hysteroscopy Dilation and Curettage Florinda Endometrial Ablation - Velasquez Parada MD Date/Time: 04/04/23 10:05 Surgeon: Velasquez Parada MD Pre Op Diagnosis: excessive bleeding, uterine polyp Patient Data Age: 38 Gender: F Height: 1.63 m Weight: 100 kg Allergies Allergy/AdvReac Type Severity Reaction Status Date / Time No Known Allergies Allergy Unknown Verified 04/05/23 11:01 Home Medications Medication Instructions Recorded Confirmed Type albuterol sulfate 90 mcg/actuation 1 puff inhalation Q4-6H PRN 01/10/23 03/18/23 Rx aerosol inhaler shortness of breath or wheezing #8.5 grams hydrocodone 5 mg-acetaminophen 325 1 tablet PO Q4H PRN pain #20 tabs 04/05/23 Rx mg tablet Patient hx anesthesia problems: none Family hx anesthesia problems: none Results Review: All pre-operative results and documents have been reviewed as part of the pre-operative evaluation. [facility] Past Medical History Medical History Adult BMI > 30 (10/17/18) Adult general medical examination Bronchospasm Dental caries DVT (deep venous thrombosis) Lumbar disc disease Nicotine addiction Recurrent bronchospasm Urolithiasis Surgical History Surgical History H/O tubal ligation History of History of ureter stent Hx of lithotripsy Social History Social History Years smoked: 5 Smoking status: Current every day smoker Tobacco type: cigarettes Additional smoking assessment comments: 3 cigarettes a day/7 years Alcohol intake: never Substance use: current Substance use type: marijuana Other substance usage details: daily smoking Living arrangements: with family Additional living arrangements comments: MOM Spiritual care concerns: No Anes - Eval Final PreProcedure Day of Procedure 04/04/23 10:05 Patient weight: obese Heart: regular rate and rhythm Lungs: clear to auscultation Airway: Mallampati scale class 1 and special considerations poor dentition Neurological: alert and oriented Last oral intake: >/= 8 hours ASA classification: III Emergent: no Anesthetic plan: proceed Anesthesia type and monitoring: general GIVS and standard monitoring Results Review: All pre-operative results and documents have been reviewed as part of the pre- operative evaluation. Informed Consent: The patient's anesthetic plan and its attendant risks and benefits were discussed with the patient/family/POA. Questions were solicited and answers provided to the satisfaction of the patient/family/POA.
--- NOTE | 2023-04-05 07:17 | WPDHPUPDATE1 ---
History and Physical Update Update Date/Time: 04/05/23 07:17 History and Physical has been reviewed, including an updated exam of the patient. There are NO changes in the patient's condition. Risks, benefits, and alternatives have been discussed and questions answered. Patient agrees to proceed with procedure.
[2023-04-05 10:15] VITALS: BP 103/82; PULSE 90; RESP 16; TEMP 36.7; O2SAT 100
[2023-04-05 10:20] VITALS: BMI 38.7
[2023-04-05] MEDS: LACTATED RINGERS 1,000 ML 30 ML IV CONT (10:45)
[2023-04-05] MEDS: ACETAMINOPHEN 500 MG TABLET 1000 MG PO (10:55)
[2023-04-05 10:59] LABS: Hematocrit 36.5 % (37.0-47.0); Hemoglobin 10.3 g/dL (12.0-15.0)
[2023-04-05] MEDS: LIDOCAINE HCL 1% LOCAL INJ 20 ML VIAL 10 ML INFILTRATE (12:23)
--- NOTE | 2023-04-05 12:36 | W.PM.PROC2 ---
Procedure Note - Detailed Date of Procedure 04/05/23 Pre-op Diagnosis excessive bleeding, uterine polyp Post-op Diagnosis Same Procedure Performed Hysteroscopy / dilatation curettage/polypectomy Surgeon Velasquez Parada MD Anesthesia MAC and Local Indications is a 38-year-old female with thickened endometrium heavy bleeding with resultant anemia Findings what appeared to be a large uterine polyp. Was unsure whether this was benign or cancerous and therefore did not do the ablation Description of Procedure patient was prepped draped in the normal sterile fashion placed in the dorsal lithotomy position. Under excellent IV sedation weighted speculum placed in posterior fornix vagina. Anterior lip of the cervix grasped with single-tooth tenaculum. 2.5cc 1% xylocaine anesthesia placed at 2, 4, 8, 10 the cervix. Uterus sounded to 8cm. Serial dilatation with fragmented dilators performed followed by passage of the hysteroscope. Normal saline was used as visualizing medium. A large polypoid lesion was seen from the fundus and using the V the instrument this was shaved down to the level of the endometrium. This was then the endometrium was shaved over the 300s run 60?. The instruments were withdrawn and decision was made not to do endometrial ablation size unsure of this was benign or not. Blood count was estimated. The patient was awakened went to recovery in satisfactory condition. All sponge, needle, instrument counts were correct Estimated Blood Loss 5 Packing No Pathology Yes Complications No immediate complications Condition Stable Disposition PACU
[2023-04-05 12:45] VITALS: BP 90/51; PULSE 75; RESP 12; O2SAT 99
[2023-04-05] MEDS: oxyCODONE HCL (*CRX) 5 MG TAB IR PO (13:11)
[2023-04-05 13:15] VITALS: BP 122/86; PULSE 75; RESP 16
== END 2023-04-05 14:29 | disposition home or self-care (01) ==
PROVIDERS: PCP Family Medicine; Visit Provider Obstetrics & Gynecology
PROC: 0U5B8ZZ Destruction of Endometrium, Via Natural or Artificial Opening Endoscopic (ICD-10-PCS; CPT 58563; principal; 2023-04-05 12:00)
DX: N92.0 Excessive and frequent menstruation with regular cycle (principal); N84.0 Polyp of corpus uteri; Z86.718 Personal history of other venous thrombosis and embolism; F17.210 Nicotine dependence, cigarettes, uncomplicated
CPT/HCPCS: 58558; 36415; 85014; 85018; 88305; A9270; J2250; J2704; J3010; J7120

== ENCOUNTER 2023-06-03 23:44 | Emergency (ER) | payer OTHER, SELFPAY ==
[2023-06-03 23:47] VITALS: BP 145/77; PULSE 106; RESP 18; TEMP 36.5; O2SAT 99
[2023-06-04 01:05] VITALS: BP 119/83; PULSE 93; RESP 23; TEMP 36.4; O2SAT 100
[2023-06-04 01:06] VITALS: O2SAT 100
[2023-06-04 01:45] VITALS: BP 124/84; PULSE 83; RESP 17; O2SAT 99
--- NOTE | 2023-06-04 02:15 | ED.EXTPRO ---
HPI - Extremity Problem General Chief complaint: Extremity Problem,Nontraumatic Stated complaint: dvt in l foot Time Seen by Provider: 06/04/23 01:21 History of Present Illness HPI Narrative: This is a 38-year-old female, who presents to the emergency department complaining of a painful mass in the left foot for the past day. The patient states she noticed a bump on the plantar aspect of the left foot, associated with cramping and intermittently sharp 7/10 pain. This is associated with swollen veins in my foot . She is concerned she may have a DVT. She denies chest pain, shortness of breath, fevers or other symptoms. Related Data Allergies Allergy/AdvReac Type Severity Reaction Status Date / Time No Known Allergies Allergy Unknown Verified 06/03/23 23:51 Review of Systems Review of Systems: CONSTITUTIONAL: Denies fever, chills, or sweats. CARDIOVASCULAR: Denies chest pain, palpitations, or edema. RESPIRATORY: Denies cough or dyspnea. GASTROINTESTINAL: Denies abdominal pain, nausea, vomiting, or diarrhea. GENITOURINARY: Denies dysuria or hematuria. SKIN: Denies rash or itching. MUSCULOSKELETAL: Right foot pain denies back pain, or myalgia. NEUROLOGIC: Denies headache, numbness, dizziness, or weakness. PSYCHIATRIC: Denies anxiety or depression. [facility] Past Medical History Medical History Adult BMI > 30 (10/17/18) Adult general medical examination Bronchospasm Dental caries DVT (deep venous thrombosis) Lumbar disc disease Nicotine addiction Recurrent bronchospasm Urolithiasis Surgical History Surgical History H/O tubal ligation History of History of ureter stent Hx of lithotripsy Social History Social History Years smoked: 5 Smoking status: Current every day smoker Tobacco type: cigarettes Additional smoking assessment comments: 3 cigarettes a day/7 years Alcohol intake: never Substance use: current Substance use type: marijuana Other substance usage details: daily smoking Living arrangements: with family Additional living arrangements comments: MOM Spiritual care concerns: No Course Course Emergency Course: 02:00 - Bedside ultrasound performed by me of the left foot demonstrates a focal hypoechoic area, consistent with abscess. Bedside ultrasound of the left lower extremity for DVT demonstrates collapsible common femoral, deep femoral, superficial femoral veins as well as collapsible popliteal veins. My suspicion for DVT is low at this time. Advised patient I suspect she may have a abscess of the left foot with recommendation for local anesthesia and incision and drainage. The patient voiced understanding and is agreeable to the plan. 02:55 - I&D performed at bedside. Please see procedure note. The patient tolerated the procedure well. Will discharge with recommendations for wound care and primary care follow-up. Discussed return and emergency precautions including signs/symptoms of cellulitis. The patient voiced understanding and is comfortable with the plan. All questions answered to her satisfaction. Vital Signs Vital signs: Vital Signs Temperature 97.7 F 06/03/23 23:47 Pulse Rate 106 H 06/03/23 23:47 Respiratory Rate 18 06/03/23 23:47 Blood Pressure 145/77 H 06/03/23 23:47 Pulse Oximetry 99 06/03/23 23:47 Oxygen Delivery Room Air 06/03/23 23:47 Temperature 97.6 F 06/04/23 03:08 Pulse Rate 100 06/04/23 03:08 Respiratory Rate 19 06/04/23 03:08 Blood Pressure 116/90 06/04/23 03:08 Pulse Oximetry 100 06/04/23 03:08 Oxygen Delivery Room Air 06/04/23 01:06 Procedures Abscess I/D foot: Date of Incision: 06/04/23 Time of Incision: 02:45 Side (if applicable): left Sedation/analgesia: none Local Anesthetic: lidocaine 2%
[2023-06-04 02:54] VITALS: BP 127/73; PULSE 87; RESP 26; O2SAT 100
[2023-06-04 03:08] VITALS: BP 116/90; PULSE 100; RESP 19; TEMP 36.4; O2SAT 100
== END 2023-06-04 03:11 | disposition home or self-care (01) ==
PROVIDERS: Emergency Provider Preventive Medicine Aerospace Medicine; PCP Family Medicine
DX: L02.612 Cutaneous abscess of left foot (principal); F17.210 Nicotine dependence, cigarettes, uncomplicated; Z86.718 Personal history of other venous thrombosis and embolism
CPT/HCPCS: 10160; 99282

== ENCOUNTER 2023-06-18 14:26 | Outpatient (CLI) | payer OTHER, SELFPAY ==
[2023-06-18 14:39] LABS: Basophils Absolute Auto 0.05 K/mm3 (0.00-0.10); Basophils Percent Auto 0.4 % (0.0-1.0); Eosinophils Percent Auto 1.7 % (1.0-6.0); Hematocrit 37.2 % (35.0-49.0); Hemoglobin 11.3 g/dL (12.0-15.0); Immature Granulocyte Absolute 0.05 K/mm3 (0.00-0.00); Immature Granulocyte Percent A 0.4 % (0.0-0.0); Lymphocytes Absolute Auto 2.08 K/mm3 (1.10-4.50); Lymphocytes Percent Auto 17.8 % (18.0-42.0); Mean Corpuscular HGB Conc 30.4 g/dL (32.0-36.0); Mean Corpuscular Hemoglobin 23.2 pg (27.0-31.0); Mean Corpuscular Volume 76.2 fL (78.0-102.0); Mean Platelet Volume 9.8 fl (9.2-11.8); Monocytes Absolute Auto 0.64 K/mm3 (0.10-0.90); Monocytes Percent Auto 5.5 % (2.0-11.0); Neutrophils Absolute Auto 8.7 K/mm3 (1.7-7.2); Neutrophils Percent Auto 74.2 % (50.0-70.0); Platelet Count Result 265 K/mm3 (150-420); Red Blood Count 4.88 M/mm3 (4.20-5.40); Red Cell Distribution Width 20.8 % (11.6-14.4); White Blood Count 11.7 K/mm3 (4.8-10.8)
[2023-06-18 14:59] LABS: Alanine Aminotransferase 23 U/L (14-59); Albumin Level 3.6 g/dL (3.4-5.0); Alkaline Phosphatase 80 U/L (46-116); Anion Gap 8 mmol/L (8-16); Aspartate Amino Transferase 13 U/L (15-37); Bilirubin,Total 0.1 mg/dL (0.00-1.00); Blood Urea Nitrogen 15 mg/dL (7-18); Calcium 9.2 mg/dL (8.5-10.1); Carbon Dioxide 28 mmol/L (21-32); Chloride 105 mmol/L (98-108); Estimated Glomerular Filt Rate > 60; Glucose 91 mg/dL (70-99); Osmolality Calculated 292 mOsm/kg (285-295); Potassium 4.5 mmol/L (3.5-5.1); Sodium 141 mmol/L (136-145)
[2023-06-18 15:10] LABS: Hematocrit 37.2 % (35.0-49.0); Hemoglobin 11.3 g/dL (12.0-15.0)
== END 2023-06-18 14:27 | disposition home or self-care (01) ==
PROVIDERS: PCP Nurse Practitioner Family; Visit Provider Obstetrics & Gynecology
DX: R58 Hemorrhage, not elsewhere classified (principal); L02.612 Cutaneous abscess of left foot
CPT/HCPCS: 36415; 80053; 84550; 85014; 85018; 85025; 87070; 87205

== ENCOUNTER 2023-07-01 12:46 | Outpatient (CLI) | payer OTHER, SELFPAY ==
--- NOTE | ~2023-07-01 | US_ITS ---
EXAMINATION: US venous doppler LE RT DATE: 07/01/2023 13:17 INDICATION: Right calf pain. Personal history of other venous thrombosis. TECHNIQUE: Grayscale ultrasound images without and with compression and Doppler ultrasound images of the right lower extremity veins were obtained. COMPARISON: Ultrasound 10/13/2021 FINDINGS: The visualized portions of right common femoral vein, profunda (deep) femoral vein, femoral vein, pop liteal vein, peroneal veins, posterior tibial veins, and greater saphenous vein outflow are patent. IMPRESSION: 1. No deep venous thrombosis. Reviewed, dictated and finalized at location A.
--- NOTE | ~2023-07-01 | US_ITS ---
EXAMINATION: US arterial duplex LE RT DATE: 07/01/2023 13:17 INDICATION: Right lower limb pain TECHNIQUE: Multiple grayscale and Doppler ultrasound images of the arteries of the right lower limb w ere obtained. COMPARISON: None FINDINGS: Triphasic waveforms with brisk systolic upstrokes and relatively smooth laminar flow is identified at the right common femoral, profunda (deep) femoral, proximal to distal superficial femoral, popliteal , posterior tibial, peroneal and anterior tibial arteries. No significant atherosclerotic plaque iden tified on grayscale imaging or focally elevated peak systolic velocities to suggest a significant laureano nosis. IMPRESSION: 1. Unremarkable study with triphasic waveforms and brisk systolic upstrokes throughout the arteries o f the right lower limb. No findings to suggest a hemodynamically significant stenosis. Reviewed, dictated and finalized at location A. IMPRESSION: 1. Unremarkable study with triphasic waveforms and brisk systolic upstrokes thr oughout the arteries of the right lower limb. No findings to suggest a hemodyna mically significant stenosis.
== END 2023-07-01 12:47 | disposition home or self-care (01) ==
LOC: CHSIMG 12:47
PROVIDERS: PCP Nurse Practitioner Family; Visit Provider Nurse Practitioner Family
DX: R09.89 Other specified symptoms and signs involving the circulatory and respiratory systems (principal); Z86.718 Personal history of other venous thrombosis and embolism
CPT/HCPCS: 93926; 93971

== ENCOUNTER 2023-07-15 23:50 | Emergency (ER) | payer OTHER, SELFPAY ==
[2023-07-15 23:50] VITALS: BP 157/94; PULSE 104; RESP 18; TEMP 36.6; O2SAT 98
--- NOTE | 2023-07-16 | ED.FEMALEGU ---
HPI - Female Genitourinary General Chief complaint: Vaginal Bleeding Stated complaint: Vaginal Clotting Source: patient Mode of arrival: ambulatory Limitations: no limitations History of Present Illness HPI Narrative: 38 year old female presents to the Emergency Department complaining of vaginal bleeding. Onset 2 weeks ago. States she is using a pad every hour for 2 weeks. States her [employer] told her to come to Emergency Department ([facility], but states could not get there, so came here). States passing clots. Does not take blood thinners. Some lower cramping. MD elicited complaint: vaginal bleeding Onset (ago): week(s) (2) Quality of pain: cramping Vaginal bleeding: heavy, clots and # pads per hour (1) Exacerbating factors: none Relieving factors: none Associated symptoms: denies other symptoms Treatment prior to arrival: none Related Data Home Medications Medication Instructions Recorded Confirmed No Home Medications 07/15/23 07/15/23 Allergies Allergy/AdvReac Type Severity Reaction Status Date / Time No Known Allergies Allergy Unknown Verified 07/03/23 12:56 Review of Systems Review of Systems: All systems reviewed & are unremarkable except as noted in HPI and below Constitutional: Constitutional: Reports as per HPI, Reports no additional constitutional complaints and Reports fatigue Eyes: Eyes: Reports as per HPI and Reports no additional eye complaints ENT: Reports system reviewed and no additional complaints, except as documented Cardiovascular: Cardiovascular: Reports as per HPI, Reports no additional cardiovascular complaints and Denies chest pain Respiratory: Respiratory: Reports as per HPI, Reports no additional respiratory complaints and Denies dyspnea Gastrointestinal: Gastrointestinal: Reports as per HPI and Reports no additional gastrointestinal complaints Genitourinary: Genitourinary: Reports no additional female genitourinary complaints, Reports as per HPI and Reports abnormal vaginal bleeding Musculoskeletal: Musculoskeletal: Reports no additional musculoskeletal complaints Integumentary/Breasts: Skin/Breast: Reports system reviewed and no additional complaints, except as docu Neurologic: Reports system reviewed and no additional complaints, except as documented Psychiatric: Psychiatric: Reports no additional psychiatric complaints Endocrine: Endocrine: Reports no additional endocrine complaints Hematologic/Lymphatic: Hematologic/Lymphatic: Reports no additional hematologic/lymphatic complaints Allergic/Immunologic: Allergic/Immunologic: Reports no additional allergic/immunologic complaints PMFSH Past Medical History Medical History Adult BMI > 30 (11/30/18) Adult general medical examination Bronchospasm Dental caries DVT (deep venous thrombosis) Lumbar disc disease Nicotine addiction Recurrent bronchospasm Urolithiasis Surgical History Surgical History H/O tubal ligation History of History of ureter stent Hx of lithotripsy Social History Social History Years smoked: 5 Smoking status: Current every day smoker Tobacco type: cigarettes Additional smoking assessment comments: 3 cigarettes a day/7 years Alcohol intake: never Substance use: current Substance use type: marijuana Other substance usage details: daily smoking Living arrangements: with family Additional living arrangements comments: MOM Spiritual care concerns: No Exam Const: General: no acute distress Nutritional Appearance: obese Orientation/consciousness: patient oriented x3 Limitations: no limitations HENMT: Head: normal to inspection Ears: external ears normal Face/Nose/Sinus: Normal external nose present Face and sinus: normal facial exam Eyes: Conjunctivae: conjunctivae normal Pupils: Equal, round
[2023-07-16 00:31] LABS: Basophils Absolute Auto 0.05 K/mm3 (0.00-0.10); Basophils Percent Auto 0.6 % (0.0-1.0); Eosinophils Absolute Auto 0.22 K/mm3 (0.02-0.50); Eosinophils Percent Auto 2.4 % (1.0-6.0); Hematocrit 28.8 % (35.0-49.0); Hemoglobin 8.9 g/dL (12.0-15.0); Immature Granulocyte Absolute 0.03 K/mm3 (0.00-0.00); Immature Granulocyte Percent A 0.3 % (0.0-0.0); Lymphocytes Absolute Auto 2.54 K/mm3 (1.10-4.50); Lymphocytes Percent Auto 28.3 % (18.0-42.0); Mean Corpuscular HGB Conc 30.9 g/dL (32.0-36.0); Mean Corpuscular Hemoglobin 25.1 pg (27.0-31.0); Mean Corpuscular Volume 81.1 fL (78.0-102.0); Mean Platelet Volume 9.3 fl (9.2-11.8); Monocytes Absolute Auto 0.55 K/mm3 (0.10-0.90); Monocytes Percent Auto 6.1 % (2.0-11.0); Neutrophils Absolute Auto 5.6 K/mm3 (1.7-7.2); Neutrophils Percent Auto 62.3 % (50.0-70.0); Platelet Count Result 291 K/mm3 (150-420); Red Blood Count 3.55 M/mm3 (4.20-5.40); Red Cell Distribution Width 20.7 % (11.6-14.4)
[2023-07-16 00:45] LABS: INR 0.9; Partial Thromboplastin Time 24.2 SEC (23.90-30.70); Prothrombin Time 10.3 Seconds (9.50-12.10)
--- NOTE | 2023-07-16 01:13 | PC.NURSE ---
ERP Dr Rosario explained in depth to pt about labs normal and that pt needs to be seen by Dr Devaughn Parada for recheck and possible o/p procedure to help stop bleeding. Pt instructed on need to gget to her [employer] tomorrow for f/u. Pt stated undersanding.
[2023-07-16 01:15] VITALS: BP 140/85; PULSE 85; RESP 18; O2SAT 99
== END 2023-07-16 01:17 | disposition home or self-care (01) ==
PROVIDERS: Emergency Provider Emergency Medicine; PCP Obstetrics & Gynecology
DX: N93.9 Abnormal uterine and vaginal bleeding, unspecified (principal); D64.9 Anemia, unspecified; F17.210 Nicotine dependence, cigarettes, uncomplicated; Z86.718 Personal history of other venous thrombosis and embolism
CPT/HCPCS: 36415; 85025; 85610; 85730; 99283

== ENCOUNTER 2023-07-24 16:18 | Outpatient (CLI) | payer OTHER, SELFPAY ==
[2023-07-24 16:32] LABS: Basophils Absolute Auto 0.06 K/mm3 (0.00-0.10); Basophils Percent Auto 0.7 % (0.0-1.0); Eosinophils Absolute Auto 0.28 K/mm3 (0.02-0.50); Eosinophils Percent Auto 3.2 % (1.0-6.0); Hematocrit 24.8 % (35.0-49.0); Hemoglobin 7.5 g/dL (12.0-15.0); Immature Granulocyte Absolute 0.04 K/mm3 (0.00-0.00); Immature Granulocyte Percent A 0.5 % (0.0-0.0); Lymphocytes Absolute Auto 1.85 K/mm3 (1.10-4.50); Lymphocytes Percent Auto 21.4 % (18.0-42.0); Mean Corpuscular HGB Conc 30.2 g/dL (32.0-36.0); Mean Corpuscular Hemoglobin 24.2 pg (27.0-31.0); Mean Platelet Volume 9.3 fl (9.2-11.8); Monocytes Absolute Auto 0.58 K/mm3 (0.10-0.90); Monocytes Percent Auto 6.7 % (2.0-11.0); Neutrophils Absolute Auto 5.9 K/mm3 (1.7-7.2); Neutrophils Percent Auto 67.5 % (50.0-70.0); Platelet Count Result 299 K/mm3 (150-420); Red Cell Distribution Width 19.7 % (11.6-14.4); White Blood Count 8.7 K/mm3 (4.8-10.8)
[2023-07-24 16:50] LABS: Troponin I 28.9 ng/L (0.00-60.4)
[2023-07-24 18:28] LABS: Folic Acid 9.5 ng/mL (8.6->20); Iron 8 ug/dL (50-170); Percent Iron Saturation 2 % (12-57); Vitamin B12 389 pg/mL (193-986)
== END 2023-07-24 16:19 | disposition home or self-care (01) ==
PROVIDERS: PCP Nurse Practitioner Family; Visit Provider Nurse Practitioner Family
DX: D50.9 Iron deficiency anemia, unspecified (principal); R58 Hemorrhage, not elsewhere classified; R06.02 Shortness of breath; R07.9 Chest pain, unspecified
CPT/HCPCS: 36415; 82607; 82746; 83540; 83550; 84484; 85025; 86850; 86880; 86900; 86901; 86902

== ENCOUNTER 2023-07-26 04:00 | Day surgery (SDC) | payer OTHER, SELFPAY ==
--- NOTE | 2023-07-24 16:48 | PM.IMHP ---
H&P: HPI History of Present Illness Date/Time: 07/24/23 16:48 Chief Complaint: vaginal bleeding /pelvic pain/anemia Narrative: to 38-year-old female with long history of severe anemia admitted for hysterectomy and bilateral salpingectomy. Medical therapy has been unhelpful. Risks and benefits of this procedure reviewed including not exclusive of , aspiration pneumonia, bleeding, transfusion, perforation injury to bowel, bladder, ureters, or other internal organs with the for open laparotomy. She received the [employer] handout entitled hysterectomy as well as the de Jenifer handout. She had all questions answered to her satisfaction. She asked to proceed PMFSH Past Medical History Medical History Adult BMI > 30 (10/17/18) Adult general medical examination Bronchospasm Dental caries DVT (deep venous thrombosis) Lumbar disc disease Nicotine addiction Recurrent bronchospasm Urolithiasis Surgical History Surgical History H/O tubal ligation History of History of ureter stent Hx of lithotripsy Social History Social History Years smoked: 5 Smoking status: Current every day smoker Tobacco type: cigarettes Additional smoking assessment comments: 3 cigarettes a day/7 years Alcohol intake: never Substance use: current Substance use type: marijuana Other substance usage details: daily smoking Living arrangements: with family Additional living arrangements comments: MOM Spiritual care concerns: No Meds Home Medications and Allergies Home Medications Medication Instructions Recorded Confirmed Type No Home Medications 07/15/23 07/24/23 History Allergies Allergy/AdvReac Type Severity Reaction Status Date / Time No Known Allergies Allergy Unknown Verified 07/24/23 15:27 Exam Const: General: cooperative, healthy appearing, comfortable and overweight Orientation/consciousness: oriented to person, oriented to place and oriented to time HENMT: Head: normal to inspection Resp: Effort & Inspection: normal respiratory effort Cardio: Rate: regular rate Rhythm: regular rhythm Heart sounds: S1 normal heart sound present and S2 normal heart sound present GI: Inspection: normal to inspection : External Female Exam: normal external appearance Speculum Exam - Vagina: normal appearance of the vagina Speculum Exam - Cervix: normal appearance of the cervix Bimanual exam- vagina & uterus: enlarged Bimanual Exam- Adnexa, other: normal adnexae Assessment and Plan Assessment and plan (1) Pelvic pain: Code(s): R10.2 - Pelvic and perineal pain Status: Acute (2) Anemia: Code(s): D64.9 - Anemia, unspecified Status: Acute Plan robotic total vaginal hysterectomy and bilateral salpingectomy
[2023-07-24 18:18] VITALS: BMI 40.8
--- NOTE | 2023-07-24 18:44 | PC.NURSE ---
Report to the Outpatient Waiting Room, entrance under the green pavilion located off [facility], at 1030 on 07-26-23. Planned Procedure Time: 1230. Time changes happen often and if your time is changed the preop area will call you the afternoon before. - You and your visitor will be asked to self-screen and do not enter if you have any COVID symptoms. - A mask is optional within the hospital at this time. Patients may have clear liquids (water, carbonated beverages, clear teas, apple juice) until 3 hours prior to surgery with a maximum of 20 ounces. 0930 - No food from midnight until time of surgery - Infants may have breast milk until 4 hours before surgery, formula 6 hours prior to surgery. - Children will be allowed to drink immediately following surgery. If applicable, please bring a bottle or sippy cup to assist with drinking. Juice, water, soda, and popsicles are readily available. For infants on formula, please bring formula the day of surgery. Pacifiers are allowed. Take the following medications with a SIP of water the morning of surgery: None Bring Inhalers DOS DO NOT STOP ANY OF YOUR OTHER PRESCRIPTION MEDICATIONS PRIOR TO SURGERY ?EXCEPT THE FOLLOWING Medications to discontinue per physician: N/A Please no make-up, nail pakistani, hairspray, perfume, deodorant, or body powder the day of surgery. No jewelry (including any body piercings) or valuables the day of surgery, leave them at home. Please take a shower or bath the night before, or the morning of, surgery with an antibacterial soap. Wear comfortable, loose fitting clothing. Children are encouraged to wear pajamas. - Jewelry must be removed prior to entering the operating room. Rings and piercings that are not removed may be cut off. - The hospital will not accept responsibility for valuables. - Please leave all valuables, including medications, at home the day of surgery. If you are going home after surgery, a licensed commercial collections driver must drive you home. - NO public transportation without another adult if you receive anesthesia. - We recommend that an adult stay with you for 24 hours following discharge. - We also recommend that you do not drive, make important decision, drink alcoholic beverages, or take any drugs that were not prescribed by your health care provider for at least 24 hours after your discharge time. For Pediatric surgeries, we recommend two adults accompany the child home. Follow any additional instructions given to you from your surgeon. If you or anyone in your household have experienced Covid symptoms in the past week, please notify your surgeon or the nurse liaison at the phone number below for possible testing. Telephone instructions given to Nataly Hurley and asked if any additional questions and then verbalized understanding. Patient advised to call surgeon office or pre surgery nurse liaison [phone] if any additional questions.
[2023-07-26] VITALS (61 sets, daily range): BP systolic 101–133; BP diastolic 45–72; PULSE 82–107; RESP 17–20; TEMP 36.7–37; O2SAT 94–100
--- NOTE | 2023-07-26 06:42 | WPDHPUPDATE1 ---
History and Physical Update Update Date/Time: 07/26/23 06:42 History and Physical has been reviewed, including an updated exam of the patient. There are NO changes in the patient's condition. Risks, benefits, and alternatives have been discussed and questions answered. Patient agrees to proceed with procedure.
[2023-07-26 10:02] LABS: Hematocrit 25.6 % (37.0-47.0); Hemoglobin 7.6 g/dL (12.0-15.0)
[2023-07-26] MEDS: ACETAMINOPHEN 500 MG TABLET 1000 MG PO (10:22)
--- NOTE | 2023-07-26 10:50 | WPDANESEPPF ---
Anes - Initial Pre Proc Eval Procedure: Operation Date: 07/26/23 12:30 Proposed Procedures p Robotic Assisted Total Vaginal Hysterectomy with Bilateral Salpingectomy - Velasquez Parada MD Date/Time: 07/26/23 10:50 Surgeon: Velasquez Parada MD Pre Op Diagnosis: excessive bleeding, pain, anemia Patient Data Age: 38 Gender: F Height: 1.63 m Weight: 108.1 kg Last Vital Signs Temp 36.8 C 07/26/23 10:03 Pulse 93 07/26/23 10:03 Resp 20 07/26/23 10:03 BP 133/72 07/26/23 10:03 Pulse Ox 98 07/26/23 10:03 O2 Del Method Room Air 07/26/23 10:03 Allergies Allergy/AdvReac Type Severity Reaction Status Date / Time No Known Allergies Allergy Unknown Verified 07/26/23 09:45 Home Medications Medication Instructions Recorded Confirmed Type albuterol sulfate 90 mcg/actuation 90 mcg inhalation Q4-6H PRN 07/24/23 07/24/23 History aerosol inhaler Shortness Of Breath Or Wheezing ferrous sulfate 325 mg (65 mg 325 mg PO DAILY 3 months #90 tabs 07/25/23 Rx iron) tablet hydrocodone 5 mg-acetaminophen 325 1 tablet PO Q4H PRN pain #20 tabs 07/26/23 Rx mg tablet Laboratory Tests 07/26/23 09:51 Hgb 7.6 L g/dL (12.0-15.0) Hct 25.6 L % (37.0-47.0) Blood Type B Positive Antibody Screen Positive Antibody Identification Pending Antigen Identification Pending PAMELA, IgG Interpret Pending PAMELA, Poly Interpret Pending PAMELA, Complement Interp Pending Crossmatch See Detail Patient hx anesthesia problems: none Family hx anesthesia problems: none Results Review: All pre-operative results and documents have been reviewed as part of the pre-operative evaluation. [facility] Past Medical History Medical History Adult BMI > 30 (10/17/18) Adult general medical examination Bronchospasm Dental caries DVT (deep venous thrombosis) Lumbar disc disease Nicotine addiction Recurrent bronchospasm Urolithiasis Surgical History Surgical History H/O tubal ligation History of History of ureter stent Hx of lithotripsy Social History Social History Years smoked: 5 Smoking status: Current every day smoker Tobacco type: cigarettes and e-cigarettes/vaping Second hand tobacco smoke exposure: No Additional smoking assessment comments: 3 cigarettes a day/7 years Alcohol intake: never Substance use: current Substance use type: marijuana Other substance usage details: daily smoking Living arrangements: with family Additional living arrangements comments: MOM Spiritual care concerns: No Anes - Eval Final PreProcedure Day of Procedure 07/26/23 10:50 Patient weight: morbidly obese Heart: regular rate and rhythm Lungs: decreased breath sounds Airway: Mallampati scale class II Neurological: alert and oriented Last oral intake: >/= 8 hours ASA classification: III Emergent: no Anesthetic plan: proceed Anesthesia type and monitoring: general ETT and standard monitoring Results Review: All pre-operative results and documents have been reviewed as part of the pre-operative evaluation. Informed Consent: The patient's anesthetic plan and its attendant risks and benefits were discussed with the patient/family/POA. Questions were solicited and answers provided to the satisfaction of the patient/family/POA.
--- NOTE | 2023-07-26 11:49 | SUR.PREOP ---
Informed patient and her mother that no surgery today, that antibody screen will take 4 to 6 hours. To be admitted to hospital and get transfusion when available. Gave patient soda and crackers.
--- NOTE | 2023-07-26 12:19 | SUR.PREOP ---
Tolerating PO well. Up to bathroom. Preparing to transfer to OB.
--- NOTE | 2023-07-26 17:22 | PC.NURSE ---
Dr Messina notified that we are still waiting for blood products. No new orders at this time. Confirmed that wants 4 units given.
--- NOTE | 2023-07-26 18:25 | PC.NURSE ---
Upon assessment of patient, patient states she has no place to live when she is discharged from the hospital. Patient states she has no plans for a home or halfway upon discharge and needs to speak with someone to help her find a place to go upon discharge. Care coordination consult entered.
--- NOTE | 2023-07-26 20:34 | PC.NURSE ---
Dr. Ivey called for update on patient assessment. Notified that blood has not arrived to blood bank at present time. No further orders given.
--- NOTE | 2023-07-26 22:46 | PC.NURSE ---
Called Leslee in blood bank to get update on blood units. Leslee stated that they are currently working on getting blood units and will notify the RN when the blood is available.
[2023-07-27] VITALS (139 sets, daily range): BP systolic 95–132; BP diastolic 47–77; PULSE 61–105; RESP 15–20; TEMP 36.2–36.9; O2SAT 97–100
--- NOTE | 2023-07-27 02:51 | PC.NURSE ---
Called Leslee in Blood bank to get an updated time frame on when blood products would be available. Leslee stated that the blood products are on their way from [place] and she will call when it is ready for transfusion.
[2023-07-27] MEDS: TUBING, BLOOD PLUM PUMP TUBING 1 EACH XX ×3 (07:25→12:15)
[2023-07-27] MEDS: SODIUM CHLORIDE 0.9% IV 250 ML 30 ML IV CONT ×2 (07:25→12:03)
--- NOTE | 2023-07-27 07:28 | PM.GYNPNOP ---
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 [employer] EMULSIFIERS - A/P Postoperative Procedures: Procedures Operation Date: 07/26/23 12:30 <No data on this case meets the specified criteria> Postoperative status: doing well and other ( will receive blood transfusion today) Time Spent With Patient Time: Total time spent is greater than 50% in coordination of care (as documented) at patient's floor/unit and/or counseling patient: Time with patient: less than 15 minutes 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ERS- PN:Subj Post-Op Subjective Date/time seen: 07/27/23 07:28 Subjective: other (Awaiting blood to be transfused) Exam Const: General: cooperative and comfortable Orientation/consciousness: oriented to person, oriented to place and oriented to time Resp: Effort & Inspection: normal respiratory effort Cardio: Rate: regular rate Rhythm: regular rhythm Heart sounds: S1 normal heart sound present and S2 normal heart sound present GI: Inspection: normal to inspection 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ERS - PN: Obj Data Vital Signs Vital Signs: Vital Signs - 24 hr 07/26/23 10:03 07/26/23 12:42 07/26/23 12:47 Temperature 98.3 F Pulse Rate 93 85 Respiratory Rate 20 Blood Pressure 133/72 112/45 L Pulse Oximetry 98 100 100 Oxygen Delivery Room Air Oxygen Flow Rate 07/26/23 12:50 07/26/23 12:55 07/26/23 13:00 Temperature Pulse Rate 89 Respiratory Rate Blood Pressure 116/53 L Pulse Oximetry 100 100 99 Oxygen Delivery Oxygen Flow Rate 07/26/23 13:05 07/26/23 13:06 07/26/23 13:11 Temperature Pulse Rate Respiratory Rate Blood Pressure Pulse Oximetry 100 100 100 Oxygen Delivery Oxygen Flow Rate 07/26/23 13:16 07/26/23 13:21 07/26/23 13:22 Temperature Pulse Rate Respiratory Rate Blood Pressure Pulse Oximetry 100 100 100 Oxygen Delivery Oxygen Flow Rate 07/26/23 13:27 07/26/23 13:30 07/26/23 13:32 Temperature Pulse Rate 84 Respiratory Rate Blood Pressure 104/54 L Pulse Oximetry 100 100 Oxygen Delivery Oxygen Flow Rate 07/26/23 13:37 07/26/23 13:42 07/26/23 13:47 Temperature Pulse Rate Respiratory Rate Blood Pressure Pulse Oximetry 100 100 100 Oxygen Delivery Oxygen Flow Rate 07/26/23 13:52 07/26/23 14:00 07/26/23 14:02 Temperature Pulse Rate 82 Respiratory Rate Blood Pressure 118/62 Pulse Oximetry 100 100 Oxygen Delivery Oxygen Flow Rate 07/26/23 14:07 07/26/23 14:12 07/26/23 18:23 Temperature Pulse Rate Respiratory Rate Blood Pressure Pulse Oximetry 100 100 100 Oxygen Delivery Oxygen Flow Rate 07/26/23 18:24 07/26/23 18:28 07/26/23 18:33 Temperature 98.3 F Pulse Rate 84 Respiratory Rate 17 Blood Pressure 101/51 L Pulse Oximetry 100 100 Oxygen Delivery Oxygen Flow Rate 07/26/23 18:38 07/26/23 18:43 07/26/23 18:48 Temperature Pulse Rate Respiratory Rate Blood Pressure Pulse Oximetry 100 100 100 Oxygen Delivery Oxygen Flow Rate 07/26/23 18:53 07/26/23 18:58 07/26/23 19:03 Temperature Pulse Rate Respiratory Rate Blood Pressure Pulse Oximetry 100 100 100 Oxygen Delivery Oxygen Flow Rate 07/26/23 19:08 07/26/23 19:13 07/26/23 19:18 Temperature Pulse Rate Respiratory Rate Blood Pressure Pulse Oximetry 100 100 100 Oxygen Delivery Oxygen Flow Rate 07/26/23 19:19 07/26/23 19:19 07/26/23 19:24 Temperature Pulse Rate Respiratory Rate Blood Pressure Pulse Oximetry 100 100 100 Oxygen Delivery Oxygen Flow Rate 07/26/23 19:29 07/26/23 19:34 07/26/23 19:39 Temperature Pulse Rate Respiratory Rate Blood Pressure Pulse Oximetry 100 100 94 Oxygen Delivery Oxygen Flow Rate 07/26/23 19:44 07/26/23 19:49 07/26/23 19:54 Temperature Pulse Rate Respiratory Rate Blood Pressure Pulse Oximetry 100 97 100 Oxygen Delivery Oxygen Flow Rate 07/26/23 19:59 07/26/23 20:04 07/26/23 20:09
--- NOTE | 2023-07-27 08:33 | PC.NURSE ---
Moira from care coordination at to see pt. at this time.
--- NOTE | 2023-07-27 13:40 | PC.NURSE ---
1330--Second set of 1230 v.s. in TAR should be timed for 1330. Accidentally changed the time in the TAR from 1330 to 1230 when charting.
--- NOTE | 2023-07-27 14:34 | PCCCNOTE ---
Received referral for homelessness. Met with pt. along with RN at bedside. Pt. states living with her sister the last 2 months. Her sister had assisted in her obtaining employment and became upset with her missing work due to anticipated surgery/hospitalization. Pt. states her sister has blocked her from all contact and will not allow her to return. Pt. states prior to living with her sister, she was staying with a friend but moved out when her personal items began to go missing. Prior to this, she was living with a significant other and her children (ages 15 and 16). DCFS became involved and her children are now with foster parents. She confirms following with [facility] recruitment intern. She does state ability to return to her friend's home at discharge and friend would transport her if she chooses. She states her mother has much other family living with her however, mother has a camper on her property that she could stay in if she chooses. I've provided homeless skilled nursing resources, housing and food resources. Pt. confirms having cell phone to make contact with all/any of interest. Have explained the homeless skilled nursing hotline does take a few days to return call for assist and encouraged her contact with hotline as soon as possible if she wishes for a skilled nursing. [facility] as well as [facility] which I've contacted to inquire. All others are in [place] and pt. does not wish to go to [place] at this time. Pt. states being on waitlist for [facility] for 2 months so far however, her H.[employer] application was denied due to felony on her record. She states anticipation to visit [facility] regarding same. Per conversation, I've encouraged her contact with her insurance child care education coordinator for transportation assist as well. Pt.'s RN indicates discharge tomorrow on 07/28/23. Pt. is aware and considering options for who to stay with at discharge. She confirms having transport at discharge.
[2023-07-28 05:29] VITALS: PULSE 80; O2SAT 98
[2023-07-28 05:31] VITALS: BP 123/73; PULSE 81
--- NOTE | 2023-07-28 06:19 | PM.GYNPNOP ---
LOCK SETTER - A/P Postoperative Procedures: Procedures Operation Date: 07/26/23 12:30 <No data on this case meets the specified criteria> Postoperative status: doing well Time Spent With Patient Time: Total time spent is greater than 50% in coordination of care (as documented) at patient's floor/unit and/or counseling patient: Time with patient: less than 15 minutes LOCK SETTER- PN:Subj Post-Op Subjective Date/time seen: 07/28/23 06:19 Interval history: received all 4units of blood. CBC pending this morning. Still looking for a place to live Exam Const: General: cooperative and healthy appearing Nutritional Appearance: average body habitus Orientation/consciousness: oriented to person, oriented to place and oriented to time GI: Inspection: normal to inspection LOCK SETTER - PN: Obj Data Vital Signs Vital Signs: Vital Signs - 24 hr 07/27/23 06:47 07/27/23 06:48 07/27/23 06:52 Temperature Pulse Rate 75 Respiratory Rate Blood Pressure 109/64 Pulse Oximetry 99 99 07/27/23 06:57 07/27/23 07:00 07/27/23 07:02 Temperature Pulse Rate 73 Respiratory Rate Blood Pressure 116/65 Pulse Oximetry 100 99 07/27/23 07:07 07/27/23 07:12 07/27/23 07:15 Temperature Pulse Rate 80 Respiratory Rate Blood Pressure 120/68 Pulse Oximetry 99 99 07/27/23 07:17 07/27/23 07:22 07/27/23 07:27 Temperature Pulse Rate Respiratory Rate Blood Pressure Pulse Oximetry 98 97 97 07/27/23 07:32 07/27/23 07:37 07/27/23 07:42 Temperature Pulse Rate Respiratory Rate Blood Pressure Pulse Oximetry 99 98 99 07/27/23 07:45 07/27/23 07:47 07/27/23 07:50 Temperature Pulse Rate 80 89 Respiratory Rate Blood Pressure 95/47 L 101/67 Pulse Oximetry 100 07/27/23 07:52 07/27/23 07:57 07/27/23 08:01 Temperature Pulse Rate 74 Respiratory Rate Blood Pressure 111/59 L Pulse Oximetry 100 100 07/27/23 08:02 07/27/23 08:07 07/27/23 08:12 Temperature Pulse Rate Respiratory Rate Blood Pressure Pulse Oximetry 100 100 100 07/27/23 08:17 07/27/23 08:22 07/27/23 08:27 Temperature Pulse Rate Respiratory Rate Blood Pressure Pulse Oximetry 99 100 100 07/27/23 08:30 07/27/23 08:32 07/27/23 08:37 Temperature Pulse Rate 82 Respiratory Rate Blood Pressure 132/68 Pulse Oximetry 100 100 07/27/23 08:42 07/27/23 08:47 07/27/23 08:51 Temperature Pulse Rate 71 Respiratory Rate Blood Pressure 115/58 L Pulse Oximetry 100 100 07/27/23 08:52 07/27/23 08:57 07/27/23 09:00 Temperature Pulse Rate 84 Respiratory Rate Blood Pressure 100/60 Pulse Oximetry 100 100 07/27/23 09:02 07/27/23 09:07 07/27/23 09:12 Temperature Pulse Rate Respiratory Rate Blood Pressure Pulse Oximetry 100 100 100 07/27/23 09:17 07/27/23 09:22 07/27/23 09:27 Temperature Pulse Rate Respiratory Rate Blood Pressure Pulse Oximetry 100 100 100 07/27/23 09:30 07/27/23 09:32 07/27/23 09:37 Temperature Pulse Rate 66 Respiratory Rate Blood Pressure 114/59 L Pulse Oximetry 100 100 07/27/23 09:42 07/27/23 09:43 07/27/23 09:47 Temperature Pulse Rate 75 Respiratory Rate Blood Pressure 119/63 Pulse Oximetry 100 100 07/27/23 09:52 07/27/23 09:57 07/27/23 10:02 Temperature Pulse Rate 78 Respiratory Rate Blood Pressure 107/77 Pulse Oximetry 100 100 100 07/27/23 10:07 07/27/23 10:12 07/27/23 10:17 Temperature Pulse Rate Respiratory Rate Blood Pressure Pulse Oximetry 100 100 100 07/27/23 10:22 07/27/23 10:27 07/27/23 10:32 Temperature Pulse Rate Respiratory Rate Blood Pressure Pulse Oximetry 100 100 100 07/27/23 10:37 07/27/23 10:42 07/27/23 10:47 Temperature Pulse Rate Respiratory Rate Blood Pressure Pulse Oximetry 100 100 100 07/27/23 10:52 07/27/23 10:57 07/27/23 1
[2023-07-28 06:22] LABS: Hematocrit 40.5 % (37.0-47.0); Hemoglobin 12.7 g/dL (12.0-15.0); Mean Corpuscular HGB Conc 31.4 g/dl (32-36); Mean Corpuscular Hemoglobin 26.1 pg (26-34); Mean Corpuscular Volume 83.2 fl (80-100); Mean Platelet Volume 9.6 fl (7.4-10.4); Platelet Count Result 212 k/mm3 (150-375); Red Blood Count 4.87 M/mm3 (4.2-5.4); Red Cell Distribution Width 18.1 % (11.5-14.5); White Blood Count 8.1 K/mm3 (4.5-10.0)
--- NOTE | 2023-07-28 06:22 | PM.DS ---
DS: Admitting Diagnosis Discharge Date 07/28/2023 Admitting Diagnosis anemia DS: Discharge Diagnosis Discharge Diagnosis (1) Pelvic pain: Code(s): R10.2 - Pelvic and perineal pain Status: Acute DS: Summary Hospital Course Reason for hospitalization: patient was admitted for robotic hysterectomy bilateral salpingectomy. Her hemoglobin was 7.5 and was difficult finding blood. She was admitted and watched for 24hours the receive 4units of blood. CBC is pending at this point and hysterectomy has been resched Hospital Course: uled please see above Time Spent with Patient Time attestation: Total time spent providing and/or coordinating discharge services: DS: Data Data Completed and Pending Labs on day of discharge: Labs from last 24 hours 07/28/23 07/26/23 05:29 09:51 WBC Pending RBC Pending Hgb Pending Hct Pending MCV Pending MCH Pending MCHC Pending RDW Pending Plt Count Pending MPV Pending Blood Type B Positive Antibody Screen Positive Antibody Identification Anti-Porter A Antigen Identification Cancelled PAMELA, Poly Interpret Negative Crossmatch See Detail Enhanced Crossmatch See Detail Discharge Plan Discharge Attending physician on discharge: Velasquez Bower Discharging Clinician: Velasquez Bower Patient Disposition: Home, Self-Care Activity: no straining and pelvic rest Diet: heart healthy Wound Care Instructions: follow printed instructions Stand Alone Forms: General Discharge Instructions Follow-up/Referrals: Velasquez Bower MD [Physician] - Discharge Medications: New hydrocodone-acetaminophen 5-325 mg tablet 1 tablet PO Q4H PRN (Reason: pain) Qty: 20 0RF No Action albuterol sulfate 90 mcg/actuation HFA aerosol inhaler 90 mcg INHALATION Q4-6H PRN (Reason: Shortness Of Breath Or Wheezing) ferrous sulfate 325 mg (65 mg iron) tablet 325 mg PO DAILY 90 Days Qty: 90 0RF Date of admission: 07/27/23 00:01 Primary Care Provider: Maine Maier Admitting Provider: Velasquez Bower Attending physician on admission: Velasquez Bower Condition: Stable
== END 2023-07-28 12:00 | disposition home or self-care (01) ==
LOC: ANHSURGERY 09:21 → ANHOBPP 12:32 → ANH2MED 07-29 14:05
PROVIDERS: PCP Nurse Practitioner Family; Visit Provider Obstetrics & Gynecology
DX: R10.2 Pelvic and perineal pain (principal); D64.9 Anemia, unspecified; N93.9 Abnormal uterine and vaginal bleeding, unspecified; F17.210 Nicotine dependence, cigarettes, uncomplicated; F12.90 Cannabis use, unspecified, uncomplicated
CPT/HCPCS: 36415; 36430; 85014; 85018; 85027; 86850; 86860; 86870; 86880; 86900; 86901; 86902; 86905; 86922; 86971; 99199; A9270; J1170; J2250; J3010; J7050; P9016

== ENCOUNTER 2023-08-15 01:33 | Day surgery (SDC) | payer OTHER, SELFPAY ==
[2023-08-09 12:01] VITALS: BMI 40.8
--- NOTE | 2023-08-09 12:05 | PC.NURSE ---
Report to the Outpatient Waiting Room, entrance under the green pavilion located off [facility], at time 1000 on date 08/15/23. Planned Procedure Time: 1200. Time changes happen often and if your time is changed the preop area will call you the afternoon before. - You and your visitor will be asked to self-screen and do not enter if you have any COVID symptoms. - A mask is optional within the hospital at this time. Patients may have clear liquids (water, carbonated beverages, clear teas, apple juice) until 3 hours prior to surgery with a maximum of 20 ounces. - No food from midnight until time of surgery Take the following medications with a SIP of water the morning of surgery: INHALER IF NEEDED DO NOT STOP ANY OF YOUR OTHER PRESCRIPTION MEDICATIONS PRIOR TO SURGERY ?EXCEPT THE FOLLOWING Medications to discontinue per physician: N/A Date to take last dose: N/A Please no make-up, nail macanese, hairspray, perfume, deodorant, or body powder the day of surgery. No jewelry (including any body piercings) or valuables the day of surgery, leave them at home. Please take a shower or bath the night before, or the morning of, surgery with an antibacterial soap. Wear comfortable, loose fitting clothing. - Jewelry must be removed prior to entering the operating room. Rings and piercings that are not removed may be cut off. - The hospital will not accept responsibility for valuables. - Please leave all valuables, including medications, at home the day of surgery. If you are going home after surgery, a licensed tank truck driver must drive you home. - NO public transportation without another adult if you receive anesthesia. - We recommend that an adult stay with you for 24 hours following discharge. - We also recommend that you do not drive, make important decision, drink alcoholic beverages, or take any drugs that were not prescribed by your health care provider for at least 24 hours after your discharge time. Follow any additional instructions given to you from your surgeon. If you or anyone in your household have experienced Covid symptoms in the past week, please notify your surgeon or the nurse liaison at the phone number below for possible testing. Telephone instructions given to PT - GONZALO COUCH and asked if any additional questions and then verbalized understanding. Patient advised to call surgeon office or pre surgery nurse liaison [phone] if any additional questions.
--- NOTE | 2023-08-12 11:27 | PM.IMHP ---
H&P: HPI History of Present Illness Date/Time: 08/12/23 11:28 Chief Complaint: Heavy vaginal bleeding Narrative: Is a 38-year-old female with excessive heavy bleeding which has resulted in anemia. This patient has had multiple long transfusions. She had a D&C and polypectomy which was benign. Her bleeding has continued despite treatment. Risks and benefits reviewed including not exclusive of , aspiration pneumonia, bleeding, transfusion, perforation injury to bowel, bladder, ureters, or other internal organs with the need for open laparotomy. She received the ACOG handout entitled hysterectomy as well as the de Jenifer handout. She had all questions answered. She asked to proceed. [facility] Past Medical History Medical History Adult BMI > 30 (10/17/18) Adult general medical examination Bronchospasm Dental caries DVT (deep venous thrombosis) Lumbar disc disease Nicotine addiction Recurrent bronchospasm Urolithiasis Surgical History Surgical History H/O tubal ligation History of History of ureter stent Hx of lithotripsy Social History Social History Years smoked: 5 Smoking status: Current every day smoker Tobacco type: cigarettes Second hand tobacco smoke exposure: No Additional smoking assessment comments: 3 cigarettes a day/7 years Alcohol intake: never Substance use: current Substance use type: marijuana Other substance usage details: daily smoking Living arrangements: with family Additional living arrangements comments: MOM Spiritual care concerns: No Meds Home Medications and Allergies Home Medications Medication Instructions Recorded Confirmed Type albuterol sulfate 90 mcg/actuation 90 mcg inhalation Q4-6H PRN 07/24/23 08/09/23 History aerosol inhaler Shortness Of Breath Or Wheezing ferrous sulfate 325 mg (65 mg 325 mg PO DAILY 3 months #90 tabs 07/25/23 08/09/23 Rx iron) tablet medroxyprogesterone 10 mg tablet 10 mg PO DAILY #30 tabs 07/28/23 08/09/23 Rx (Provera) Allergies Allergy/AdvReac Type Severity Reaction Status Date / Time No Known Allergies Allergy Unknown Verified 08/09/23 11:56 Exam Const: General: cooperative, comfortable and average body habitus Orientation/consciousness: oriented to person, oriented to place and oriented to time Resp: Effort & Inspection: normal respiratory effort Cardio: Rate: regular rate Rhythm: regular rhythm Heart sounds: S1 normal heart sound present and S2 normal heart sound present GI: Inspection: normal to inspection : External Female Exam: normal external appearance Speculum Exam - Vagina: normal appearance of the vagina Speculum Exam - Cervix: normal appearance of the cervix Bimanual exam- vagina & uterus: enlarged Bimanual Exam- Adnexa, other: normal adnexae Assessment and Plan Assessment and plan (1) Pelvic pain: Code(s): R10.2 - Pelvic and perineal pain Status: Acute (2) Iron deficiency anemia: Code(s): D50.9 - Iron deficiency anemia, unspecified Status: Acute (3) Excessive bleeding: Code(s): R58 - Hemorrhage, not elsewhere classified Status: Acute Plan Robotic total vaginal hysterectomy bilateral salpingectomy
[2023-08-15] VITALS (10 sets, daily range): BP systolic 111–144; BP diastolic 56–92; PULSE 58–87; RESP 12–18; TEMP 36.4–36.8; O2SAT 95–100
--- NOTE | 2023-08-15 06:35 | WPDHPUPDATE1 ---
History and Physical Update Update Date/Time: 08/15/23 06:35 History and Physical has been reviewed, including an updated exam of the patient. There are NO changes in the patient's condition. Risks, benefits, and alternatives have been discussed and questions answered. Patient agrees to proceed with procedure.
[2023-08-15] MEDS: ACETAMINOPHEN 500 MG TABLET 1000 MG PO (10:24)
[2023-08-15] MEDS: KETOROLAC 15 MG/ML VIAL (*BKC) IV PUSH (10:24)
--- NOTE | 2023-08-15 11:11 | P.PNAN_ITS ---
Anes - Initial Pre Proc Eval Procedure: Operation Date: 08/15/23 12:00 Proposed Procedures p Robotic Assisted Total Vaginal Hysterectomy with Bilateral Salpingectomy - Velasquez Parada MD Date/Time: 08/15/23 11:11 Surgeon: Velasquez Parada MD Pre Op Diagnosis: anemia Patient Data Age: 38 Gender: F Height: 1.63 m Weight: 103 kg Last Vital Signs Temp 36.8 C 08/15/23 09:56 Pulse 87 08/15/23 09:56 Resp 16 08/15/23 09:56 BP 111/58 L 08/15/23 09:56 Pulse Ox 99 08/15/23 09:56 O2 Del Method Room Air 08/15/23 09:56 Allergies Allergy/AdvReac Type Severity Reaction Status Date / Time No Known Allergies Allergy Unknown Verified 08/09/23 11:56 Home Medications Medication Instructions Recorded Confirmed Type albuterol sulfate 90 mcg/actuation 90 mcg inhalation Q4-6H PRN 07/24/23 08/09/23 History aerosol inhaler Shortness Of Breath Or Wheezing ferrous sulfate 325 mg (65 mg 325 mg PO DAILY 3 months #90 tabs 07/25/23 08/09/23 Rx iron) tablet medroxyprogesterone 10 mg tablet 10 mg PO DAILY #30 tabs 07/28/23 08/09/23 Rx (Provera) hydrocodone 5 mg-acetaminophen 325 1 tablet PO Q4H PRN pain #20 tabs 08/15/23 Rx mg tablet Patient hx anesthesia problems: none Family hx anesthesia problems: none Results Review: All pre-operative results and documents have been reviewed as part of the pre- operative evaluation. [facility] Past Medical History Medical History Adult BMI > 30 (10/17/18) Adult general medical examination Bronchospasm Dental caries DVT (deep venous thrombosis) Lumbar disc disease Nicotine addiction Recurrent bronchospasm Urolithiasis Surgical History Surgical History H/O tubal ligation History of History of ureter stent Hx of lithotripsy Social History Social History Years smoked: 5 Smoking status: Current every day smoker Tobacco type: cigarettes Second hand tobacco smoke exposure: No Additional smoking assessment comments: 3 cigarettes a day/7 years Alcohol intake: never Substance use: current Substance use type: marijuana Other substance usage details: daily smoking Living arrangements: with family Additional living arrangements comments: MOM Spiritual care concerns: No Anes - Eval Final PreProcedure Day of Procedure 08/15/23 11:11 Patient weight: obese Heart: regular rate and rhythm Lungs: clear to auscultation Airway: Mallampati scale class II and special considerations poor dentition Neurological: alert and oriented Last oral intake: >/= 8 hours ASA classification: III Emergent: no Anesthetic plan: proceed Anesthesia type and monitoring: general ETT and standard monitoring Results Review: All pre-operative results and documents have been reviewed as part of the pre- operative evaluation. Informed Consent: The patient's anesthetic plan and its attendant risks and benefits were discussed with the patient/family/POA. Questions were solicited and answers provided to the satisfaction of the patient/family/POA.
[2023-08-15] MEDS: ceFAZolin 2 GM/D5W 50 ML 2 GM/50 ML BAG IVPB (11:58)
--- NOTE | 2023-08-15 12:59 | P.OP_ITS ---
Procedure Note - Detailed Date of Procedure 08/15/23 Pre-op Diagnosis anemia Post-op Diagnosis Same Procedure Performed The total vaginal hysterectomy and bilateral salpingectomy Surgeon Velasquez Parada MD Anesthesia General Indications This is a 38-year-old female with heavy vaginal bleeding refractory to medical resultant Findings Large uterus. Tubes status post ovaries Description of Procedure Patient was prepped placed in dorsal position. Excellent general trach anesthesia weighted speculum placed in posterior fornix vagina. Anterior lip of the cervix grasped with single-tooth tenaculum. Uterus sounded to 11cm. Serial dilatation with fragmented dilators performed followed by passage of the 10. KRISHNA 3 point cold. Next the 16 [place] catheter was placed in the bladder and drained clear weighted speculum the single-tooth and the gloves were changed. Next Supraumbilical incision made the Veress needle passed in the abdomen. The abdomen filled with CO2 gas to 15 of mercury. The 8mm trocar advanced in the abdomen. Downside visualized. Injury seen. Gas reattached. Patient placed in 20degree Trendelenburg. Right and left lateral quadrant incisions were made and 8 trocars advanced under direct visualization assuring injury. Right upper quadrant incision made the 8mm trocar advanced under visualization assuring injury. The robot was docked. Attention was turned to the console. Left round ligament grasped, burned, cut. Anteriorly the bladder was scarred from the her previous surgery. This was sharply dissected layer by layer and through the peritoneum until the bladder could be reflected caudally away from the cervix uterus the opposite round ligament was clamped, burned, cut. Next the stumps of the fallopian tubes were sharply dissected left attached to the uterine origin. Conserving the left ovary the utero-ovarian ligament was skeletonized clamping burning cutting and bringing this to level of previously cut round ligament. In like fashion conserving the right ovary the utero-ovarian ligament was clamped, burned, to the level of previously cut round ligament on the right. Cardinal broad ligaments on the left were serially skeletonized clamping burning cutting and none hugging the cervix uterus until the large uterine vessels could be seen on the left these were individually clamped, burned,. Similarly on the right the uterine cardinal broad ligaments were skeletonized clamping burning cutting and bringing these down to the level of the previously cut tissue. The uterine vessels were then grasped burned and cut. Excellent blanching the uterus was noted. Colpotomy incision was made the cervix uterus and portions of tube removed through the vagina. The vagina was then closed with continuous running 0V lock from lateral edge to lateral edge back to midline. Irrigation undertaken clear blood loss estimated 25cc. The robot was undocked the gas removed from the abdomen. The trocars removed and the incisions closed with 4 Monocryl and glue. The instruments removed from the vagina the patient was awakened and went to recovery in satisfactory condition. All sponge, needle, instrument counts were correct. There were no immediate complications noted Estimated Blood Loss 25 Drains No Packing No Pathology Yes Complications No immediate complications Condition Stable Disposition PACU
[2023-08-15] MEDS: LACTATED RINGERS 1,000 ML 30 ML IV CONT ×2 (13:20)
[2023-08-15] MEDS: fentaNYL CITRATE INJ (*CRX) 100 MCG/2 ML VIAL 25 MCG IV PUSH ×4 (14:03→14:19)
--- NOTE | 2023-08-15 14:46 | ADMGEN ---
This patient, Nataly Hurley, was admitted to [facility] 2nd Floor Room 289-00. Patient/family oriented to hospital policies and general routines including ID bracelet, bed and alarms, visiting hours, pain management, procedures, bathroom and other care routines, personal items, smoking policy, room service/diet, and visiting hours. Information on how to activate the Rapid Response Team has been discussed. Patient/Family are encouraged to report perceived risks to care and to ask questions if they do not understand what they are told or what they should do.
[2023-08-15] MEDS: KETOROLAC 30 MG/ML VIAL (*BKC) IV PUSH (15:09)
[2023-08-15] MEDS: DEXTROSE 5%/LACTATED RINGERS 1,000 ML 125 ML IV CONT ×2 (15:11→23:15)
[2023-08-15] MEDS: DOCUSATE SODIUM 100 MG CAPSULE PO (17:19)
[2023-08-15] MEDS: HYDROcodone/acetaminophen (*CRX) 5-325 MG TABLET 1 TAB PO (17:20)
[2023-08-15] MEDS: IBUPROFEN 600 MG TABLET PO (23:14)
[2023-08-15] MEDS: HYDROcodone/acetaminophen (*CRX) 10-325 MG TABLET 1 TAB PO (23:15)
[2023-08-16 04:40] VITALS: BP 127/76; PULSE 74; RESP 18; TEMP 36.6; O2SAT 97
[2023-08-16 05:14] LABS: Basophils Percent Auto 0.2 % (0.2-1.2); Hematocrit 38.8 % (37.0-47.0); Hemoglobin 11.8 g/dL (12.0-15.0); Immature Granulocyte Absolute 0.08 K/mm3 (0.00-0.031); Immature Granulocyte Percent A 0.5 % (0-0.5); Lymphocytes Absolute Auto 1.23 K/mm3 (0.9-3.2); Lymphocytes Percent Auto 7.7 % (18.3-44.2); Mean Corpuscular HGB Conc 30.4 g/dl (32-36); Mean Corpuscular Hemoglobin 25.5 pg (26-34); Mean Platelet Volume 10.8 fl (7.4-10.4); Monocytes Absolute Auto 0.7 K/mm3 (0.1-0.6); Monocytes Percent Auto 4.6 % (2.6-8.5); Neutrophils Absolute Auto 13.9 K/mm3 (1.3-6.7); Platelet Count Result 262 k/mm3 (150-375); Red Blood Count 4.62 M/mm3 (4.2-5.4); Red Cell Distribution Width 18.6 % (11.5-14.5); White Blood Count 15.9 K/mm3 (4.5-10.0)
[2023-08-16] MEDS: DEXTROSE 5%/LACTATED RINGERS 1,000 ML 125 ML IV CONT (05:16)
--- NOTE | 2023-08-16 06:32 | P.DS_ITS ---
DS: Admitting Diagnosis Discharge Date 08/16/2023 Admitting Diagnosis pelvic pain/excessive heavy bleeding /deficiency anemia DS: Discharge Diagnosis Discharge Diagnosis (1) Pelvic pain: Code(s): R10.2 - Pelvic and perineal pain Status: Acute (2) Excessive bleeding: Code(s): R58 - Hemorrhage, not elsewhere classified Status: Acute (3) Iron deficiency anemia: Code(s): D50.9 - Iron deficiency anemia, unspecified Status: Acute DS: Summary Hospital Course Reason for hospitalization: patient was admitted on 08/15/2023 for robotic total hysterectomy bilateral salpingectomy secondary to severe anemia. Hospital Course: Patient's hospital course was unremarkable. She remained afebrile. She was up, eating regular diet, voiding without difficulty, ambulating, and generally without complaints. Time Spent with Patient Time attestation: Total time spent providing and/or coordinating discharge services: Exam Const: General: cooperative, healthy appearing and comfortable Nutritional Appearance: average body habitus Orientation/consciousness: oriented to person, oriented to place and oriented to time Resp: Effort & Inspection: normal respiratory effort Cardio: Rate: regular rate Rhythm: regular rhythm Heart sounds: S1 normal heart sound present and S2 normal heart sound present GI: Inspection: normal to inspection and incision ( Wounds are clean dry and intact) DS: Data Data Completed and Pending Pending studies at discharge: Pending at discharge 08/15/23 12:39 Surgical [PTH] Routine Surgical [PTH] Routine Labs on day of discharge: Labs from last 24 hours 08/16/23 08/15/23 04:31 10:13 WBC 15.9 H RBC 4.62 Hgb 11.8 L Hct 38.8 MCV 84.0 MCH 25.5 L MCHC 30.4 L RDW 18.6 H Plt Count 262 MPV 10.8 H Immature Gran % (Auto) 0.5 Neut % (Auto) 87.0 H Lymph % (Auto) 7.7 L [place] % (Auto) 4.6 Eos % (Auto) 0.0 Baso % (Auto) 0.2 Lymph # (Auto) 1.23 [place] # (Auto) 0.7 H Eos # (Auto) 0.0 Baso # (Auto) 0.0 Abs Immat Gran (auto) 0.08 H Absolute Neuts (auto) 13.9 H Absolute Nucleated RBC 0.0 Nucleated RBC % 0.0 Blood Type B Positive Antibody Screen Negative Enhanced Crossmatch See Detail Discharge Plan Discharge Patient Disposition: Home, Self-Care Stand Alone Forms: General Discharge Instructions Follow-up/Referrals: Velasquez Bower MD [Physician] - Discharge Medications: New hydrocodone-acetaminophen 5-325 mg tablet 1 tablet PO Q4H PRN (Reason: pain) Qty: 20 0RF No Action albuterol sulfate 90 mcg/actuation HFA aerosol inhaler 90 mcg INHALATION Q4-6H PRN (Reason: Shortness Of Breath Or Wheezing) medroxyprogesterone [Provera] 10 mg tablet 10 mg PO DAILY Qty: 30 0RF ferrous sulfate 325 mg (65 mg iron) tablet 325 mg PO DAILY 90 Days Qty: 90 0RF
--- NOTE | 2023-08-16 06:35 | PM.GYNPNOP ---
CRITICAL CARE SPECIALIST - A/P Postoperative Procedures: Procedures Operation Date: 08/15/23 12:00 Actual Procedure Side Surgeon p Robotic Assisted Total Vaginal Hysterectomy with Bilateral Salpingectomy Bilateral Velasquez Parada MD Postoperative day: 1 Postoperative status: doing well Postoperative plan: routine post-op care, see orders, advance diet, voiding trials and discharge Time Spent With Patient Time: Total time spent is greater than 50% in coordination of care (as documented) at patient's floor/unit and/or counseling patient: Time with patient: less than 15 minutes CRITICAL CARE SPECIALIST- PN:Subj Post-Op Subjective Date/time seen: 08/16/23 06:35 Subjective: patient has no complaints, patient desires discharge, pain is well controlled and patient is tolerating oral intake Exam Const: General: cooperative, healthy appearing and comfortable Orientation/consciousness: oriented to person, oriented to place and oriented to time Resp: Effort & Inspection: normal respiratory effort Cardio: Rate: regular rate Rhythm: regular rhythm Heart sounds: S1 normal heart sound present and S2 normal heart sound present GI: Inspection: normal to inspection and incision ( wounds are clean dry and intact) CRITICAL CARE SPECIALIST - PN: Obj Data Vital Signs Vital Signs: Vital Signs - 24 hr 08/15/23 09:56 08/15/23 13:20 08/15/23 13:30 Temperature 98.2 F 97.8 F Pulse Rate 87 73 63 Respiratory Rate 16 14 12 Blood Pressure 111/58 L 113/56 L 143/70 H Pulse Oximetry 99 100 100 Oxygen Delivery Room Air Simple Face Mask Simple Face Mask Oxygen Flow Rate 8 8 08/15/23 13:45 08/15/23 14:00 08/15/23 14:15 Temperature Pulse Rate 61 77 73 Respiratory Rate 16 16 14 Blood Pressure 126/76 132/70 124/73 Pulse Oximetry 100 96 95 Oxygen Delivery Simple Face Mask Room Air Room Air Oxygen Flow Rate 8 08/15/23 14:30 08/15/23 14:55 08/15/23 15:00 Temperature 97.6 F Pulse Rate 72 82 Respiratory Rate 12 16 Blood Pressure 125/70 136/92 H Pulse Oximetry 96 96 Oxygen Delivery Room Air Room Air Oxygen Flow Rate 08/15/23 20:10 08/15/23 20:10 08/15/23 23:53 Temperature 97.8 F 98.1 F Pulse Rate 80 80 58 L Respiratory Rate 18 18 18 Blood Pressure 144/80 H 121/75 Pulse Oximetry 98 98 97 Oxygen Delivery Room Air Oxygen Flow Rate 08/15/23 23:53 08/16/23 04:40 08/16/23 04:40 Temperature 97.8 F Pulse Rate 58 L 74 74 Respiratory Rate 18 18 18 Blood Pressure 127/76 Pulse Oximetry 97 97 97 Oxygen Delivery Room Air Room Air Oxygen Flow Rate Intake/Output Intake/Output: Intake & Output 08/13/23 08/14/23 08/15/23 08/16/23 23:59 23:59 23:59 23:59 Intake Total 1150 1100 Output Total 380 150 Balance 770 950 Meds/Results Medications: Active Medications Generic Name Dose Route Start Last Admin Trade Name Freq PRN Reason Stop Dose Admin Hydrocodone Bitart/Acetaminophen 1 tab 08/15/23 14:36 08/15/23 17:20 Hydrocodone/Acetaminophen (*Crx) 5-325 Mg Tablet PO 1 tab Q3H PRN Administration Pain Rated 5 or Less Hydrocodone Bitart/Acetaminophen 1 tab 08/15/23 14:36 08/15/23 23:15 Hydrocodone/Acetaminophen (*Crx) 10-325 Mg Tablet PO 1 tab Q3H PRN Administration Pain Rated 6 or Greater Docusate Sodium 100 mg 08/15/23 17:00 08/15/23 17:19 Docusate Sodium 100 Mg Capsule PO 100 mg BID FELA Administration Enoxaparin Sodium 40 mg 08/16/23 09:00 Enoxaparin 40 Mg/0.4 Ml Syringe SUB-Q DAILY FELA Dextrose/Lactated Ringer's 1,000 mls @ 125 mls/hr 08/15/23 14:36 08/16/23 05:16 Dextrose 5%/Lactated Ringers IV CONT 125 mls/hr .Q8H FELA Administration Ibuprofen 600 mg 08/15/23 14:36 08/15/23 23:14 Ibuprofen 600 Mg Tablet PO 600 mg Q6H PRN Administration Cramping Ketorolac Tromethamine 30 mg 08/15/23 14:36 08/15/23 15:09 Ketorolac 30 Mg/Ml Vial (*Bkc) IV PUSH 08/20/23 14:35 30 mg Q6H PRN Administration Pain Rated 4-6 Naloxone HCl 0.1 mg 08/15/23 14
--- NOTE | 2023-08-16 07:28 | WPDANESPN ---
Anes - Prog Note Post-Op Date/Time: 08/16/23 07:28 Cardiovascular status: normal Respiratory status: normal Airway patency: baseline Mental status: baseline Post-Op hydration status: normal Vital Signs: Last Vital Signs Temp 36.6 C 08/16/23 04:40 Pulse 74 08/16/23 04:40 Resp 18 08/16/23 04:40 BP 127/76 08/16/23 04:40 Pulse Ox 97 08/16/23 04:40 O2 Del Method Room Air 08/16/23 04:40 O2 Flow Rate 8 08/15/23 13:45 Pain Score (VAS): 10 I/O: Intake & Output 08/15/23 08/15/23 08/16/23 15:59 23:59 07:59 Intake Total 50 1100 1100 Output Total 80 300 150 Balance -30 800 950 Laboratory Tests 08/16/23 04:31 08/15/23 08/16/23 10:13 04:31 WBC 15.9 H RBC 4.62 Hgb 11.8 L Hct 38.8 MCV 84.0 MCH 25.5 L MCHC 30.4 L RDW 18.6 H Plt Count 262 MPV 10.8 H Immature Gran % (Auto) 0.5 Neut % (Auto) 87.0 H Lymph % (Auto) 7.7 L [place] % (Auto) 4.6 Eos % (Auto) 0.0 Baso % (Auto) 0.2 Lymph # (Auto) 1.23 [place] # (Auto) 0.7 H Eos # (Auto) 0.0 Baso # (Auto) 0.0 Abs Immat Gran (auto) 0.08 H Absolute Neuts (auto) 13.9 H Absolute Nucleated RBC 0.0 Nucleated RBC % 0.0 Blood Type B Positive Antibody Screen Negative Enhanced Crossmatch See Detail Post-procedural complaints: none Patient Feedback: Patient satisfied with anesthetic care.
[2023-08-16 07:35] VITALS: BP 134/58; PULSE 70; RESP 24; TEMP 36.9; O2SAT 99
[2023-08-16] MEDS: HYDROcodone/acetaminophen (*CRX) 5-325 MG TABLET 1 TAB PO (07:46)
[2023-08-16] MEDS: DOCUSATE SODIUM 100 MG CAPSULE PO (07:48)
[2023-08-16] MEDS: IBUPROFEN 600 MG TABLET PO ×2 (07:48→16:39)
[2023-08-16] MEDS: ENOXAPARIN 40 MG/0.4 ML SYRINGE SUB-Q (09:44)
--- NOTE | 2023-08-16 12:56 | PCCCNOTE ---
Per Care Coordination. Patient referred to CC for needing housing information. Pt. reports having a place to stay with her mom or return home with her friend. Pt. plans to return with her friend. She reports her mother or grandpa will take her home today. Gave her housing information. Pt. denies further dc needs.
--- NOTE | 2023-08-16 17:25 | PC.NURSE ---
PT discharged to home via wheelchair accompanied by her mother and taken to waiting car. Follow up appts confirmed
== END 2023-08-16 17:25 | disposition home or self-care (01) ==
LOC: ANHSURGERY 09:41 → ANHOB2 14:39
PROVIDERS: PCP Nurse Practitioner Family; Visit Provider Obstetrics & Gynecology
PROC: (CPT 58260; principal; 2023-08-15 12:00)
DX: D50.9 Iron deficiency anemia, unspecified (principal); N80.03 Adenomyosis of the uterus; N92.0 Excessive and frequent menstruation with regular cycle; R10.2 Pelvic and perineal pain; Z86.718 Personal history of other venous thrombosis and embolism; F17.210 Nicotine dependence, cigarettes, uncomplicated; F12.90 Cannabis use, unspecified, uncomplicated; Z79.51 Long term (current) use of inhaled steroids
CPT/HCPCS: 58260; 36415; 85025; 86850; 86900; 86901; 86902; 86922; 88307; 99199; A9270; J0330; J0690; J1100; J1170; J1650; J1885; J2250; J2405; J2704; J3010; J7030; J7120; J7121

== ENCOUNTER 2023-11-15 15:15 | Outpatient (CLI) | payer OTHER, SELFPAY ==
[2023-11-15 15:31] LABS: Basophils Absolute Auto 0.05 K/mm3 (0.00-0.10); Basophils Percent Auto 0.5 % (0.0-1.0); Eosinophils Absolute Auto 0.38 K/mm3 (0.02-0.50); Hematocrit 42.1 % (35.0-49.0); Hemoglobin 13.5 g/dL (12.0-15.0); Immature Granulocyte Absolute 0.04 K/mm3 (0.00-0.00); Immature Granulocyte Percent A 0.4 % (0.0-0.0); Lymphocytes Absolute Auto 1.63 K/mm3 (1.10-4.50); Lymphocytes Percent Auto 17.4 % (18.0-42.0); Mean Corpuscular HGB Conc 32.1 g/dL (32.0-36.0); Mean Corpuscular Hemoglobin 28.4 pg (27.0-31.0); Mean Corpuscular Volume 88.6 fL (78.0-102.0); Mean Platelet Volume 9.9 fl (9.2-11.8); Monocytes Absolute Auto 0.43 K/mm3 (0.10-0.90); Monocytes Percent Auto 4.6 % (2.0-11.0); Neutrophils Absolute Auto 6.9 K/mm3 (1.7-7.2); Neutrophils Percent Auto 73.1 % (50.0-70.0); Platelet Count Result 236 K/mm3 (150-420); Red Blood Count 4.75 M/mm3 (4.20-5.40); Red Cell Distribution Width 16.2 % (11.6-14.4); White Blood Count 9.4 K/mm3 (4.8-10.8)
--- NOTE | 2023-11-15 15:32 | ECG_ITS ---
Measurements Intervals [place] Rate: 75 P: 12 [place]: 140 QRS: -6 QRSD: 89 T: 29 QT: 354 QTc: 396 Interpretive Statements SINUS RHYTHM INCOMPLETE RIGHT BUNDLE BRANCH BLOCK NO PREVIOUS ECG AVAILABLE FOR COMPARISON Electronically Signed On 11-15-2023 16:26:56 [employer] by Eris Quinonez M.D.
[2023-11-15 15:40] LABS: Amphetamine Screen Urine Positive (Negative); Barbiturate Screen Urine Negative (Negative); Benzodiazepines Screen Urine Negative (Negative); Cannabinoid Screen Urine Positive (Negative); Cocaine Screen Urine Negative (Negative); Methadone Screen Urine Negative (Negative); Opiate Screen Urine Negative (Negative); Phencyclidine Screen Urine Negative (Negative)
[2023-11-15 16:07] LABS: Alanine Aminotransferase 26 U/L (14-59); Albumin Level 3.7 g/dL (3.4-5.0); Alkaline Phosphatase 68 U/L (46-116); Anion Gap 5 mmol/L (8-16); Aspartate Amino Transferase 11 U/L (15-37); Bilirubin,Total 0.3 mg/dL (0.00-1.00); Blood Urea Nitrogen 11 mg/dL (7-18); Calcium 9.7 mg/dL (8.5-10.1); Carbon Dioxide 32 mmol/L (21-32); Chloride 104 mmol/L (98-108); Estimated Glomerular Filt Rate > 60; Glucose 98 mg/dL (70-99); Iron 61 ug/dL (50-170); NT Pro B Type Natriuretic Pept < 11 pg/mL (0-125); Osmolality Calculated 291 mOsm/kg (285-295); Potassium 4.3 mmol/L (3.5-5.1); Sodium 141 mmol/L (136-145); Total Protein 6.6 g/dL (6.4-8.2)
== END 2023-11-15 15:16 | disposition home or self-care (01) ==
LOC: CHSLAB 15:17
PROVIDERS: PCP Nurse Practitioner Family; Visit Provider Nurse Practitioner Family
DX: D50.9 Iron deficiency anemia, unspecified (principal); R60.0 Localized edema; R06.02 Shortness of breath; I45.19 Other right bundle-branch block
CPT/HCPCS: 36415; 80053; 80307; 83540; 83880; 85025; 93005

== ENCOUNTER 2023-11-15 16:12 | Outpatient (NON) | payer OTHER, SELFPAY | END 2023-11-15 16:13 | disposition home or self-care (01) | LOC: CHSLAB 16:14 | PROVIDERS: PCP Nurse Practitioner Family; Visit Provider Nurse Practitioner Family | DX: M79.672 Pain in left foot (principal) | CPT/HCPCS: 87070; 87075; 87147; 87186; 87205 ==

== ENCOUNTER 2023-12-08 13:31 | Emergency (ER) | payer OTHER, SELFPAY ==
[2023-12-08 13:36] VITALS: BP 157/85; PULSE 77; RESP 17; TEMP 36.6; O2SAT 99
--- NOTE | 2023-12-08 13:38 | PC.NURSE ---
Patient states she took 4 naproxen around 0830 this morning.
--- NOTE | 2023-12-08 14:19 | ED.GENADULT ---
HPI - General Adult General Chief complaint: Dental/Oral Stated complaint: dental abscess Time Seen by Provider: 12/08/23 13:48 History of Present Illness HPI narrative: This is a 38-year-old female with a history of methamphetamine abuse presenting with a dental abscess. Patient noticed swelling in the roof of her mouth for the last 2 days. She said she felt it ruptured earlier today with some purulent discharge. Patient denies fever chills nausea vomiting diarrhea. No difficulty swallowing or throat swelling. Related Data Allergies Allergy/AdvReac Type Severity Reaction Status Date / Time No Known Allergies Allergy Unknown Verified 12/08/23 13:32 [facility] Past Medical History Medical History Adult BMI > 30 (10/17/18) Adult general medical examination Bronchospasm Dental caries DVT (deep venous thrombosis) Lumbar disc disease Nicotine addiction Recurrent bronchospasm Urolithiasis Surgical History Surgical History H/O tubal ligation History of History of ureter stent Hx of lithotripsy Social History Social History Years smoked: 5 Smoking status: Current every day smoker Tobacco type: cigarettes Second hand tobacco smoke exposure: No Additional smoking assessment comments: 3 cigarettes a day/7 years Alcohol intake: never Substance use: current Substance use type: marijuana Other substance usage details: daily smoking Living arrangements: with family Additional living arrangements comments: MOM Spiritual care concerns: No Exam Narrative: APPEARANCE: No apparent distress. Head: Poor dentition with multiple dental caries below the gum line, fluctuant mass over the roof of the mouth just behind the incisors EYES: EOMI, NOSE: Atraumatic NECK: Trachea midline RESPIRATORY: No increased rate of breathing CARDIOVASCULAR: RRR, ABDOMINAL: Non-distended MUSCULOSKELETAl: No obvious deformities NEURO: Alert. Moving 4/4 extremities SKIN:: Warm, dry. Normal color PSYCHIATRIC: Normal affect Course Vital Signs Vital signs: Vital Signs Temperature 97.9 F 12/08/23 13:36 Pulse Rate 77 12/08/23 13:36 Respiratory Rate 17 12/08/23 13:36 Blood Pressure 157/85 H 12/08/23 13:36 Pulse Oximetry 99 12/08/23 13:36 Oxygen Delivery Room Air 12/08/23 13:36 Temperature 97.9 F 12/08/23 13:36 Pulse Rate 77 12/08/23 13:36 Respiratory Rate 17 12/08/23 13:36 Blood Pressure 157/85 H 12/08/23 13:36 Pulse Oximetry 99 12/08/23 13:36 Oxygen Delivery Room Air 12/08/23 13:36 Procedures Abscess I/D oral: Date of Incision: 12/08/23 Time of Incision: 14:25 Sedation/analgesia: none Local Anesthetic: lidocaine 1% and with epi Amount of anesthesia used (mL): 2 Technique: incised with #11 blade and probed loculations Amount of fluid expressed (mL): 0 Irrigation: No Packing used?: none I&D Results: Nothing Medical Decision Making MDM Narrative Medical decision making narrative: -Course: 38-year-old presenting with an abscess to the roof of her mouth. the abscess was opened using 11 blade scalpel without significant purulent discharge. Loculations broken up with hemostat.. Patient discharged on antibiotics. Given return precautions. -DDX includes but is not limited to: Dental infection, dental abscess, dental caries -Co-morbidities complicating care: history of methamphetamine use, very poor dentition -Social determinants of health: unemployed, lives with her mom -Procedures: incision and drainage -Interventions: [place] 5 mg x 2 -Shared decision making / Disposition: discharge -RX Augmentin, Motrin, Tylenol Vital Signs Vital Signs: Vital Signs Temperature 97.9 F 12/08/23 13:36 Pulse Rate 77 12/08/23 13:36 R
[2023-12-08] MEDS: HYDROcodone/acetaminophen (*CRX) 5-325 MG TABLET 2 TAB PO (14:42)
[2023-12-08 14:53] VITALS: BP 153/80; PULSE 80; RESP 17; TEMP 36.6; O2SAT 100
== END 2023-12-08 14:53 | disposition home or self-care (01) ==
PROVIDERS: Emergency Provider Emergency Medicine; PCP Nurse Practitioner Family
DX: K04.7 Periapical abscess without sinus (principal); F17.210 Nicotine dependence, cigarettes, uncomplicated
CPT/HCPCS: 41800; 99283; A9270

== ENCOUNTER 2024-01-21 12:16 | Outpatient (NON) | payer OTHER, SELFPAY | END 2024-01-21 12:17 | disposition home or self-care (01) | LOC: CHSLAB 12:21 | PROVIDERS: PCP Nurse Practitioner Family; Visit Provider Nurse Practitioner Family | DX: L08.9 Local infection of the skin and subcutaneous tissue, unspecified (principal); S90.812A Abrasion, left foot, initial encounter | CPT/HCPCS: 87070; 87075; 87205 ==

== ENCOUNTER 2024-06-27 03:42 | Emergency (ER) | payer OTHER, SELFPAY ==
[2024-06-27 03:42] VITALS: BP 151/103; PULSE 99; RESP 18; TEMP 36.9; O2SAT 99
--- NOTE | 2024-06-27 03:53 | PC.NURSE ---
notified Dr Johnston that patient is in the department
--- NOTE | 2024-06-27 04:30 | PC.NURSE ---
Dr Johnston at the bedside
[2024-06-27 04:31] VITALS: BP 144/94; PULSE 90; RESP 18; O2SAT 100
--- NOTE | 2024-06-27 04:38 | PC.NURSE ---
supplies gathered and placed at the bedside
[2024-06-27] MEDS: LIDOCAINE HCL 1% LOCAL INJ 10 ML VIAL INFILTRATE (04:43)
--- NOTE | 2024-06-27 05:05 | PC.NURSE ---
patient reports that her wound opened and is now draining. wound culture taken to room and sample obtained and taken to lab. patient is squeezing wound on her foot. encouraged patient to no longer squeeze it. to allow provider assess wound.
--- NOTE | 2024-06-27 05:09 | PC.NURSE ---
Dr Johnston at the bedside
--- NOTE | 2024-06-27 05:26 | PC.NURSE ---
Addendum entered by Odette Clayton RN 06/27/24 19:14: correction: left foot Original Note: patient in the room crying. states she can not tolerate anymore lidocaine to her wound on her right foot. patient keeps pulling foot away from provider.
--- NOTE | 2024-06-27 06:06 | PC.NURSE ---
Addendum entered by Odette Clayton RN 06/27/24 19:14: correction: left foot Original Note: patient does not want any other interventions to be done to her wound on her right foot. dressing placed and covered with coban. encouraged patient to follow up with her line palletizer.
--- NOTE | 2024-06-27 06:13 | ED.SKABFB ---
HPI - Skin/Abscess/Foreign Bdy General Chief complaint: Skin/Abscess/Foreign Body Stated complaint: Sore on bottom of Left Foot History of Present Illness HPI narrative: 39-year-old white female presents with a sore on the sole of her left foot that apparently has been draining for about 2 or 3 months. She is seeing a sanforizer now, reports she has been on multiple different antibiotics without resolution, and was just switched to doxycycline but has not picked up the prescription yet. She saw a sanforizer yesterday, who thoroughly clean the area, put some Betadine on it, and she reports the area that was draining sealed up and she thinks the pus is reaccumulating because the whole foot has gotten very painful again, nothing is draining, and she can not put any weight on it. No fever or chills. It has been x-rayed in the past she reports that negative, apparently has also been ultrasounded and was negative. She reports our podiatrists is planning on doing surgical exploration in the next week or 2 if the doxycycline does not resolve Related Data Home Medications Medication Instructions Recorded Confirmed clindamycin HCl 300 mg capsule 300 mg PO TID 06/27/24 06/27/24 tramadol 50 mg tablet 50 mg PO QID PRN Pain (Scale Score 06/27/24 06/27/24 4-6) Allergies Allergy/AdvReac Type Severity Reaction Status Date / Time No Known Allergies Allergy Unknown Verified 06/09/24 10:12 Review of Systems Review of Systems: All systems reviewed & are unremarkable except as noted in HPI and below PMFSH Past Medical History Medical History Adult BMI > 30 (10/17/18) Adult general medical examination Amphetamine abuse, episodic Bronchospasm Dental caries DVT (deep venous thrombosis) Lumbar disc disease Nicotine addiction Recurrent bronchospasm Urolithiasis Surgical History Surgical History H/O tubal ligation History of History of ureter stent Hx of lithotripsy Social History Social History Years smoked: 5 Smoking status: Current every day smoker Tobacco type: cigarettes Second hand tobacco smoke exposure: No Additional smoking assessment comments: 3 cigarettes a day/7 years Alcohol intake: never Substance use: current Substance use type: marijuana Other substance usage details: daily smoking Living arrangements: with family Additional living arrangements comments: MOM Spiritual care concerns: No Exam Narrative: pleasant, morbidly obese, well oriented, no acute distress, there is a strong odor tobacco present, skin change consistent with longstanding tobacco Const: General: cooperative, well developed, alert, awake, Physically active and anxious Nutritional Appearance: obese HENMT: Head: normal to inspection Face and sinus: normal facial exam Eyes: General: appearance normal, both eyes and all related structures Visual Baca: normal visual baca by confrontation Alignment and Position: alignment normal Periorbital: periorbital findings normal Eyelids: eyelids normal Conjunctivae: conjunctivae normal Sclera: sclerae normal Cornea: corneas normal Pupils: Equal, round and reactive pupils present EOM: EOMs intact bilaterally Neck: Neck: normal visual inspection and full ROM Resp: Effort & Inspection: normal respiratory effort Skin: General skin exam: normal color Other: there is pain opening in the skin of the left shoulder roughly mid medial sole that has some darkened tissue present and the surrounding area is tender to palpation. There is no active drainage at the moment, the skin is not erythematous, skin itself does not appear to be infected. I did not feel fluctuant area but she reports that it has been draining for 2 months and this 1st time it was sealed up and no draining and it is quite painful.
[2024-06-27 06:14] VITALS: BP 138/88; PULSE 82; RESP 20; O2SAT 98
--- NOTE | 2024-06-30 12:40 | PC.NURSE ---
PRELIMINARY AEROBIC WOUND CULTURE RESULTS: ISOLATE 1: HEAVY GROWTH OF SYAPHYLOCOCCUS AUREUS. AWAITING C&S
--- NOTE | 2024-07-01 12:45 | PC.NURSE ---
FINAL AEROBIC WOUND CULTURE RESULTS: ISOLATE 1: HEAVY GROWTH OF MRSA, NEGATIVE FOR INDUCIBLE CLINDAMYCIN RESISTANCE NO CHANGE IN TX PER C&S AND DR PACE.
== END 2024-06-27 06:14 | disposition left against medical advice (07) ==
PROVIDERS: Emergency Provider Emergency Medicine; PCP Nurse Practitioner Family
DX: L02.612 Cutaneous abscess of left foot (principal); F41.9 Anxiety disorder, unspecified; F17.210 Nicotine dependence, cigarettes, uncomplicated; Z79.891 Long term (current) use of opiate analgesic
CPT/HCPCS: 87070; 87147; 87181; 87205; 99283

== ENCOUNTER 2024-08-30 02:33 | Emergency (ER) | payer OTHER, SELFPAY ==
[2024-08-30 02:35] VITALS: BP 173/94; PULSE 82; RESP 18; TEMP 35.9; O2SAT 94
--- NOTE | 2024-08-30 02:51 | ED.DENTAL ---
HPI - Dental/Oral General Chief complaint: Dental/Oral Stated complaint: tooth pain Time Seen by Provider: 08/30/24 02:44 Source: patient Mode of arrival: ambulatory Limitations: no limitations History of Present Illness HPI Narrative: This is a 39-year-old female with history of dental caries, who presents to the emergency room complaining of right lower jaw pain. The patient states she has and dental caries in this evening while eating felt a quick onset dull severe right jaw pain. She denies radiation of the pain and denies difficulty breathing or difficulty swallowing. She states she has taken Aleve earlier this evening without improvement. She has no other complaints at this time. Related Data Allergies Allergy/AdvReac Type Severity Reaction Status Date / Time No Known Allergies Allergy Unknown Verified 08/30/24 02:38 Review of Systems Review of Systems: All systems reviewed & are unremarkable except as noted in HPI and below PMFSH Past Medical History Medical History Adult BMI > 30 (10/17/18) Adult general medical examination Amphetamine abuse, episodic Bronchospasm Dental caries DVT (deep venous thrombosis) Lumbar disc disease Nicotine addiction Recurrent bronchospasm Urolithiasis Surgical History Surgical History H/O tubal ligation History of History of ureter stent Hx of lithotripsy Social History Social History Years smoked: 5 Smoking status: Current every day smoker Tobacco type: cigarettes Second hand tobacco smoke exposure: No Additional smoking assessment comments: 3 cigarettes a day/7 years Alcohol intake: never Substance use: current Substance use type: marijuana Other substance usage details: daily smoking Living arrangements: with family Additional living arrangements comments: MOM Spiritual care concerns: No Exam Narrative: GENERAL: Well-developed, well-nourished, In moderate distress due to pain. Tearful HEAD: Normocephalic, atraumatic. EYES: PERRLA and EOMI. ENT: multiple dental caries and tooth decay. There is erythema with swelling noted at the base of tooth number 30. Nares clear, no rhinorrhea or epistaxis. Mucous membranes moist. Oropharynx without tonsillar hypertrophy exudate or other lesions. NECK: Supple. No adenopathy or masses. CHEST: Clear to auscultation. No respiratory distress. No wheezes rales or rhonchi HEART: Regular rate and rhythm. No murmur heard. Normal peripheral pulses. EXTREMITIES: Normal range of motion. No edema. SKIN: Warm, dry, no rash. NEURO: Alert and oriented x3. No focal deficit. Moving all 4 limbs spontaneously PSYCH: Normal mood and affect. Course Course Emergency Course: 02:57 - The patient's exam is consistent with dental caries and abscess. Will treat with pain control and treat with oral antibiotics with recommendation for dental follow-up. I discussed the findings and recommendations with the patient. Discussed return and emergency precautions including signs/symptoms of airway compromise and deep space neck infection. The patient voiced understanding and agreement with the plan. All questions answered to her satisfaction. Vital Signs Vital signs: Vital Signs Temperature 96.7 F L 08/30/24 02:35 Pulse Rate 82 08/30/24 02:35 Respiratory Rate 18 08/30/24 02:35 Blood Pressure 173/94 H 08/30/24 02:35 Pulse Oximetry 94 08/30/24 02:35 Oxygen Delivery Room Air 08/30/24 02:35 Temperature 96.7 F L 08/30/24 02:35 Pulse Rate 82 08/30/24 02:35 Respiratory Rate 18 08/30/24 02:35 Blood Pressure 173/94 H 08/30/24 02:35 Pulse Oximetry 94 08/30/24 02:35 Oxygen Delivery Room Air 08/30/24 02:35 MDM - Dental/Oral MDM Narrative Medical decision making narrative: plan: Pain control, antibiotics,
[2024-08-30] MEDS: KETOROLAC 30 MG/ML VIAL (*BKC) IM (02:56)
[2024-08-30] MEDS: ACETAMINOPHEN 500 MG TABLET 1000 MG PO (02:57)
== END 2024-08-30 03:28 | disposition home or self-care (01) ==
PROVIDERS: Emergency Provider Preventive Medicine Aerospace Medicine; PCP Nurse Practitioner Family
DX: K04.7 Periapical abscess without sinus (principal); F17.210 Nicotine dependence, cigarettes, uncomplicated; Z86.718 Personal history of other venous thrombosis and embolism
CPT/HCPCS: 96372; 99283; J1885

== ENCOUNTER 2025-01-25 18:28 | Emergency (ER) | payer OTHER, SELFPAY ==
[2025-01-25] VITALS (10 sets, daily range): BP systolic 119–143; BP diastolic 73–90; PULSE 58–87; RESP 13–20; TEMP 36.4; O2SAT 99–100
--- NOTE | ~2025-01-25 | CT_ITS ---
EXAMINATION: CT abdomen pelvis w con DATE: 01/25/2025 21:17 INDICATION: epigastric pain, elevated LFT's TECHNIQUE: Computed tomography (CT) of the abdomen and pelvis was performed with 100 mL Omnipaque-350 intravenous contrast. Automated exposure control and iterative reconstruction technique were employe d. The dose-length product was 1375.24 mGy-cm. COMPARISON: 04/16/2019. FINDINGS: Lower thorax: Coronary artery calcification. Liver: Enlarged. Biliary/Gallbladder: Mild gallbladder wall edema. Cholelithiasis. Mild dilation of the common bile du ct 8mm. Suggestion of a small gas containing stone in the distal common bile duct at the pancreatic h ead (coronal image 57/125). Pancreas: No mass or duct dilation. Spleen: Normal. Adrenals:No mass. Kidneys: Mild right inferior caliectasis, pelviectasis, and urothelial enhancement. Punctate nonobstr ucting bilateral calculi. No suspicious mass. GI tract: No small bowel dilation. Mildly dilated transverse colon with fecal loading and abrupt gandhi sition point at the hepatic flexure and distal decompression. No definite wall thickening or mass at the transition point. Dilated appendix, which is a chronic finding. No periappendiceal or right lower quadrant inflammatory change. Mesentery/Peritoneum: No ascites, mass, or free air. Retroperitoneum: No mass. Pelvis: Empty urinary bladder. Absent uterus.. Soft Tissues: Soft tissues and body wall unremarkable. Bones: No acute osseous finding. IMPRESSION: Hepatomegaly. Choledocholithiasis. Mild right inferior caliectasis and pelviectasis with urothelial enhancement may represent ascending infection. Correlate with urinalysis. Fecal loading in the transverse colon, mild transverse colon dilation, with an abrupt transition poin t at the hepatic flexure. Consider referral for colonoscopy to exclude an obstructing mass or strictu re. Reviewed, dictated and finalized at location K. IMPRESSION: Hepatomegaly. Choledocholithiasis. Mild right inferior caliectasis and pelviectasis with urothelial enhancement ma y represent ascending infection. Correlate with urinalysis. Fecal loading in the transverse colon, mild transverse colon dilation, with an abrupt transition point at the hepatic flexure. Consider referral for colonosco py to exclude an obstructing mass or stricture.
--- NOTE | ~2025-01-25 | XR_ITS ---
EXAMINATION: XR chest 2V Exam Date/Time: 01/25/2025 19:04 CDT HISTORY: sob Comparison: 01/09/2023. RESULT: Lines, tubes, and devices: None. Lungs and pleura: Clear. Cardiomediastinal silhouette: Stable. Other: No acute osseous or upper abdominal finding. IMPRESSION: No acute cardiopulmonary process. Reviewed, dictated and finalized at location K.
--- NOTE | 2025-01-25 18:55 | PC.NURSE ---
ASSUMED CARE. REPORT RECEIVED FROM MORGAN GOTTI
--- NOTE | 2025-01-25 19:00 | ED_ITS ---
HPI - SOB/Dyspnea General Chief Complaint: Shortness of Breath/Dyspnea Stated Complaint: Gerd Time Seen by Provider: 01/25/25 18:57 Source: patient Mode of arrival: ambulatory Limitations: no limitations History of Present Illness HPI Narrative: 39 year old female presents to the Emergency Department at the direction of her Primary Care Provider. Patient complains of heart burn for the past 3 days. She having some shortness of breath now and burning in chest with some arm numbness. Denies any history of heart disease. MD elicited complaint: shortness of breath and chest pain Onset (ago): day(s) (3) Exacerbating factors: nothing Relieving factors: nothing Associated symptoms: abdominal pain Related Data Home Medications ?Medication ?Instructions ?Recorded ?Confirmed ?Last Taken ?Type No Home Medications 01/25/25 01/25/25 Unknown History Allergies Allergy/AdvReac Type Severity Reaction Status Date / Time No Known Allergies Allergy Unknown Verified 01/25/25 18:53 Review of Systems 2 Review of Systems: All systems reviewed & are unremarkable except as noted in HPI and below Constitutional: Constitutional: Reports as per HPI, Denies chills and Denies fever(s) Eyes: Eyes: Reports as per HPI ENT: Reports system reviewed and no additional complaints, except as documented Cardiovascular: Cardiovascular: Reports as per HPI and Reports chest pain Respiratory: Respiratory: Reports as per HPI and Reports dyspnea Gastrointestinal: Gastrointestinal: Reports as per HPI and Reports abdominal pain Genitourinary: Genitourinary: Reports no additional female genitourinary complaints Musculoskeletal: Musculoskeletal: Reports no additional musculoskeletal complaints Integumentary/Breasts: Skin/Breast: Reports system reviewed and no additional complaints, except as docu Neurologic: Reports system reviewed and no additional complaints, except as documented and Reports numbness (arms) [facility] Past Medical History Medical History Amphetamine abuse, episodic DVT (deep venous thrombosis) Adult BMI > 30 (10/17/18) Dental caries Adult general medical examination Lumbar disc disease Bronchospasm Nicotine addiction Urolithiasis Recurrent bronchospasm Surgical History Surgical History H/O tubal ligation History of Hx of lithotripsy History of ureter stent Social History Social History Years smoked: 5 Smoking status: Current every day smoker Tobacco type: cigarettes Second hand tobacco smoke exposure: No Additional smoking assessment comments: 3 cigarettes a day/7 years Alcohol intake: never Substance use: current Substance use type: marijuana Other substance usage details: daily smoking Living arrangements: with family Additional living arrangements comments: MOM Spiritual care concerns: No Exam 2 Const: General: ill appearing (mild) Nutritional Appearance: obese O rientation/consciousness: patient oriented x3 Limitations: no limitations (poor historian) HENMT: Head: normal to inspection Ears: external ears normal F raffaele/Nose/Sinus: Normal external nose present Face and sinus: normal facial exam Mouth: Yes Normal oral and palatal mucosa present Throat: posterior oropharynx normal Eyes: Conjunctivae: conjunctivae normal Pupils: Equal, round and reactive pupils present EOM: EOMs intact bilaterally Direct Ophthalmoscopy: no photophobia Neck: Neck: normal visual inspection and no meningeal signs Chest: Chest palpation & inspection: normal inspection of the chest and no tenderness Resp: Effort & Inspection: normal respiratory effort Auscultation: d iminished lung sounds Cardio: Rate: regular rate Rhythm: regular rhythm GI: Inspection: non-distended GI Palp: Yes Soft to palpation and Yes Tenderness to palpation present (GI) (mild epigatric) Auscultation: normal bowel sounds : General: Yes bladder normal to palpation Back/Spine/Pelvis: Back: no CVA tenderness Skin: General skin exam: normal color Rashes: no rashes Neuro: General: patient oriented x3 Other: grossly normal Extrem: General: normal to inspection and no clubbing, cyanosis or edema Psych: Mental Status: mental status grossly normal Course Course Emergency Course: 39 y/o female presents to the ED per PCP advice for evaluation. Patient c/o heartburn x 3 days. Now having some shortness of breath, chest tightness and numbness to arms. No history of heart disease. PE: mild epigastric tenderness CBC: H/H 14.3/45, Plt 263; wbc 6.2 with 64 S, 25 L, 7 M CMP: Na 139, K 4.1, Cl 103, CO2 30, Glc 120, BUN 12, Cr 0.82; LFT's AST 102, ALT 307 TNI: 4.8 EKG: NSR, 72, NAC D-dimer: 0.29 A/L: 42 /30 CXR: NAD CT Abd/Pelvis: hepatomegaly, choleodocholithiasis. Mild R inferior caliectasis and pelvic ectasis with urothelial enhancement. May represent ascending infection. Fecal loading transverse colon, mild transverse colon dilation with abrupt transition point and hepatic flexure. May represent obstruction or stricture. Tx: quality assurance monitor final, pulse ox, saline lock. GI Cocktail. [some relief] (0020) [facility] contacted re: transfer. Dr. Whitlock will call back ([phone]) Discussed with Mireya Acevedo. Patient accepted for transfer (Dr. Whitlock). Will call back with bed assignment. Vital Signs Vital signs: Vital Signs Temperature 36.4 C 01/25/25 18:29 Pulse Rate 71 01/25/25 18:29 Respiratory Rate 17 01/25/25 18:29 Blood Pressure 125/81 01/25/25 18:29 Pulse Oximetry 100 01/25/25 18:29 Oxygen Delivery Room Air 01/25/25 18:29 Temperature 36.4 C 01/25/25 18:29 Pulse Rate 69 01/26/25 03:12 Respiratory Rate 18 01/26/25 03:12 Blood Pressure 133/73 01/26/25 03:12 Pulse Oximetry 100 01/26/25 03:12 Oxygen Delivery Room Air 01/26/25 03:12 Transfer Transfered to: [facility] Transfer rationale: Further evaluation and treatment of choledocholithiasis, possible colon obstruction /stricture Accepting physician: Dr. Whitlock MDM - SOB/Dyspnea Lab Data 01/25/25 19:23 01/25/25 19:23 Labs: Lab Results 01/25/25 Range/Units 19:23 WBC 6.2 (4.8-10.8) K/mm3 RBC 4.96 (4.20-5.40) M/mm3 Hgb 14.3 (12.0-15.0) g/dL Hct 45.0 (35.0-49.0) % MCV 90.7 (78.0-102.0) fL MCH 28.8 (27.0-31.0) pg MCHC 31.8 L (32-36) g/dL RDW 13.1 (11.6-14.4) % Plt Count 263 (150-420) K/mm3 MPV 10.1 (9.2-11.8) fl Immature Gran % (Auto) 0.5 H (0.0-0.0) % Neut % (Auto) 63.6 (50.0-70.0) % Lymph % (Auto) 24.9 (18.0-42.0) % [place] % (Auto) 7.1 (2.0-11.0) % Eos % (Auto) 3.1 (1.0-6.0) % Baso % (Auto) 0.8 (0.0-1.0) % Lymph # (Auto) 1.54 (1.10-4.50) K/mm3 [place] # (Auto) 0.44 (0.10-0.90) K/mm3 Eos # (Auto) 0.19 (0.02-0.50) K/mm3 Baso # (Auto) 0.05 (0.00-0.10) K/mm3 Abs Immat Gran (auto) 0.03 H (0.00-0.00) K/mm3 Absolute Neuts (auto) 3.93 (1.70-7.20) K/mm3 Absolute Nucleated RBC 0.00 (0.00-0.00) K/mm3 Nucleated RBC % 0.0 (0-0.0) % D-Dimer 0.29 (0.19-0.50) mg/L Sodium 139 (136-145) mmol/L Potassium 4.1 (3.5-5.1) mmol/L Chloride 103 (98-108) mmol/L Carbon Dioxide 30 (21-32) mmol/L Anion Gap 6 (4-12) mmol/L BUN 12 (7-18) mg/dL Creatinine 0.82 (0.55-1.02) mg/dL Estim Creat Clear Calc 90 ml/min Estimated GFR > 60 (59 - ) Glucose 120 H (70-99) mg/dL Calculated Osmolality 288 (285-295) mOsm/kg Calcium 9.9 (8.5-10.1) mg/dL Total Bilirubin 0.5 (0.00-1.00) mg/dL AST 102 H (15-37) U/L ALT 307 H (14-59) U/L Alkaline Phosphatase 186 H (46-116) U/L Troponin I 4.8 (0.00-60.4) ng/L Total Protein 7.5 (6.4-8.2) g/dL Albumin 3.6 (3.4-5.0) g/dL Amylase 42 (25-115) U/L Lipase 30 (16-77) U/L Discharge Plan Discharge Clinical Impression: Abdominal pain, epigastric, Choledocholithiasis, Hepatomegaly, Large bowel obstruction Patient Disposition: Acute Care Hospital Condition: Stable Patient Language: Setswana Prescriptions: No Action No Home Medications Follow-up/Referrals: Maine Maier APRN [Primary Care Provider] - Time of Disposition: 01:28
--- NOTE | 2025-01-25 19:01 | ECG_ITS ---
Test Date: 2025-01-25 19:09:41 Measurements Intervals Victor Rate: 72 P: 2 [place]: 130 QRS: -16 QRSD: 85 T: 46 QT: 368 QTc: 404 Interpretive Statements SINUS RHYTHM MINIMAL VOLTAGE CRITERIA FOR LVH, CONSIDER NORMAL VARIANT [MEETS CRITERIA IN ONE OF: R(aVL), S(V1), R(V5), R(V5/V6)+S(V1)] No previous ECG available for comparison Electronically Signed On 01-26-2025 14:27:21 CDT by Eris Quinonez M.D.
[2025-01-25] MEDS: MAG HYDROX/ALUMINUM HYD/SIMETH 30 ML, PHENobarb/HYOSCY/ATROPINE/SCOP 32.4 MG, LIDOCAINE... PO (19:22)
--- NOTE | 2025-01-25 19:25 | PC.NURSE ---
PATIENT HAS RETURNED FROM RADIOLOGY. LABS HAVE BEEN DRAWN. MEDICATED PER JAN. PLACED BACK ON EDGE GRINDER MACHINE
[2025-01-25 19:27] LABS: Basophils Absolute Auto 0.05 K/mm3 (0.00-0.10); Basophils Percent Auto 0.8 % (0.0-1.0); Eosinophils Absolute Auto 0.19 K/mm3 (0.02-0.50); Eosinophils Percent Auto 3.1 % (1.0-6.0); Hemoglobin 14.3 g/dL (12.0-15.0); Immature Granulocyte Absolute 0.03 K/mm3 (0.00-0.00); Immature Granulocyte Percent A 0.5 % (0.0-0.0); Lymphocytes Absolute Auto 1.54 K/mm3 (1.10-4.50); Lymphocytes Percent Auto 24.9 % (18.0-42.0); Mean Corpuscular HGB Conc 31.8 g/dL (32-36); Mean Corpuscular Hemoglobin 28.8 pg (27.0-31.0); Mean Corpuscular Volume 90.7 fL (78.0-102.0); Mean Platelet Volume 10.1 fl (9.2-11.8); Monocytes Absolute Auto 0.44 K/mm3 (0.10-0.90); Monocytes Percent Auto 7.1 % (2.0-11.0); Neutrophils Absolute Auto 3.93 K/mm3 (1.70-7.20); Neutrophils Percent Auto 63.6 % (50.0-70.0); Platelet Count Result 263 K/mm3 (150-420); Red Blood Count 4.96 M/mm3 (4.20-5.40); Red Cell Distribution Width 13.1 % (11.6-14.4); White Blood Count 6.2 K/mm3 (4.8-10.8)
--- OUTSIDE RECORDS SUMMARY | 2025-01-25 19:30 | XMS_ITS | Clinical Summary ---
Author Organization [facility] Address [place] [address] Care Team Providers Care Wheat And Oats Flake Miller Name Role Phone Angelina Ayala [facility] Primary Care Provider [phone] Allergies No known active allergies Medications HYDROcodone-raffaele taminophen (NORCO) 5-325 MG tabletIndicatio ns:Acute Pain < 7 Day Supply Take 1-2 tablets by mouth every 6 (six) hours as needed. Indications: Acute Pain < 7 Day Supply 20 tablet 07/16/2022 Active Social History Tobacco Use Types Packs/Day Years Used Date Smoking Tobacco: Every Day Cigarettes Smokeless Tobacco: Never Alcohol Use Standard Drinks/Week Comments Not Currently 0 (1 standard drink = 0.6 oz pur e alcohol) Comments No Sex and Gender Information Value Date Recorded Sex Assigned at Not on file Legal Sex Female 8:07 PM CDT Gender Identity Female 11/27/2021 5:58 PM WAX POT TENDER Sexual Orientation Straight 11/27/2021 5: 58 PM WAX POT TENDER Last Filed Vital Signs Vital Sign Reading Time Taken Comments Blood Pressure 132/70 07/16/2022 5:31 PM CDT Pulse 90 07/16/2022 5:31 PM CDT Temperature 36.4 C (97.5 F) 07/16/2022 5:31 PM CDT Respiratory Rate 18 07/16/2022 5:31 PM CDT Oxygen Saturation 99% 07/16/2022 5:31 PM CDT Inhaled Oxygen Concentration - - Weight 98.9 kg (218 lb) 07/16/2022 5:31 PM CDT Height 162.6 cm (5' 4 ) 07/16/2022 5:31 PM CDT Body Mass Index 37.42 07/16/2022 5:31 PM CDT Plan of Treatment Health Maintenance Due Date Last Done Comments Cervical Cancer Screening Pa p Smear (Age 30 to 64) Every 3 Years 1983 Annual Physical 1986 Pneumococcal Vaccine: Pediat rics (0 to 5 Years) and At-Risk Patients (6 to 64 Years) (1 of 2 - PCV) 1989 Hepatitis C 2001 Hepatitis B Vaccines (1 of 3 - 19+ 3-dose series) 2002 Cervical Cancer Screening Pa p with HPV Testing (Age 30 to 64) Every 5 Years 2013 Cervical Cancer Screening with HPV 2013 Mammogram Screening 2023 COVID-19 Vaccine ( - 2023-2 5 season) 2024 Influenza Adult (#1) 2024 DTaP, Tdap and Td Vaccines ( 2 - Td or Tdap) 09/12/2026 09/12/2016 HPV Vaccines Aged Out No longer eligi ble based on patient's age to complete this topic Meningococcal B Vaccine Aged Out No l onger eligible based on patient's age to complete this topic Meningococcal Vaccine Aged Out No nitza nathalie eligible based on patient's age to complete this topic RSV Immunizations Under 20 Months Aged Out No longer eligible based on patient's age to complete this topic Insurance Care Teams Wheat And Oats Flake Miller Relationship Specialty Start Date End Date Angelina Ayala FNP-BC [address] [place] [address] PCP - General NURSE PRACTITIONER 11/30/21
--- OUTSIDE RECORDS SUMMARY | 2025-01-25 19:30 | XMS_ITS ---
Author Organization [facility] Address [address] [place] [address] Phone Care Team Providers Care Burn Out Tender Lace Name Role Phone Unavailable Unavailable Unavailable Plan of Treatment No Plan of Treatment Recorded Assessments Includes: Assessments for all patient encounters No Assessments Recorded Medical Equipment - Implanted Devices Includes: Current and historical Devices No Medical Equipment Recorded Medications Administered Includes: Administered Medications in patient's chart No Administered Medications Recorded Results Includes: Results from 01/26/2024 through 01/25/2025 No Results Recorded For Specified Dates History of Present Illness History of Present Illness not supported for this document type No History of Present Illness Recorded Social History No Social History Recorded - Smoking Status Unknown Medical History Includes: Medical History in patient's chart No Medical History Recorded Family History Includes: Family History in patient's chart No Family History Recorded Review of Systems Review of Systems not supported for this document type No Review of Systems Recorded Mental Status No Mental Status Recorded Functional Status No Functional Status Recorded Physical Exam Physical Exam not supported for this document type No Physical Exam Recorded Insurance Includes: Active Insurance Policies No Insurance Coverage Recorded Guarantor Relationship Effective Dates Guarantor Ph one IZA GONZALO Self [id number] Clinical Notes Includes: Signed Clinical Notes starting from 12/07/2022 No Clinical Notes Recorded
--- OUTSIDE RECORDS SUMMARY | 2025-01-25 19:30 | XMS_ITS | Encounter Summary ---
Author Organization [facility] Address [address] [place] [id number] Care Team Providers Care Supervisor Concrete Block Plant Name Role Phone [facility] Primary Care Provider [phone] Encounter Details Date Type Department Care Team ([facility] st Contact Info) Description 04/25/2019 Abstract SFL CONVERSION [address] [place] [address] , Generic Conversion, Social History Tobacco Use Types Packs/Day Years Used Date Smoking Tobacco: Never Assessed Comments Unknown Sex and Gender Information Value Date Recorded Sex Assigned at Not on file Legal Sex Female 8:07 PM CDT Gender Identity Female 11/27/2021 5:58 PM [employer] Sexual Orientation Straight 11/27/2021 5: 58 PM [employer] documented as of this encounter Plan of Treatment Not on file documented as of this encounter Visit Diagnoses Not on filedocumented in this encounter Care Teams Supervisor Concrete Block Plant Relationship Specialty Start Date End Date Angelina Ayala FNP-BC [address] [place] [address] PCP - General NURSE PRACTITIONER 11/30/21 documented as of this encounter
--- OUTSIDE RECORDS SUMMARY | 2025-01-25 19:30 | XMS_ITS | Clinical Summary ---
Author Organization [facility] Address [address] [place] [address] Phone Care Team Providers Care Household Worker Name Role Phone Unavailable Unavailable Unavailable Reason for Visit and Chief Complaint NO SHOW Plan of Treatment No Plan of Treatment Recorded Assessments Includes: Assessments from this encounter No Assessments Recorded Medical Equipment - Implanted Devices Includes: Current Devices No Medical Equipment Recorded Medications Administered Includes: Administered Medications from this encounter No Administered Medications Recorded Results Includes: Results discussed during this encounter No Results Recorded For Specified Dates History of Present Illness Includes: History of Present Illness from this encounter No History of Present Illness Recorded Social History No Social History Recorded - Smoking Status Unknown Medical History Includes: Medical History addressed during this encounter No Medical History Recorded Family History Includes: Family History addressed during this encounter No Family History Recorded Review of Systems Includes: Review of Systems from this encounter No Review of Systems Recorded Mental Status Includes: Mental Status from this encounter No Mental Status Recorded Functional Status Includes: Functional Status from this encounter No Functional Status Recorded Physical Exam Includes: Physical Exam from this encounter No Physical Exam Recorded Insurance Includes: Active Insurance Policies No Insurance Coverage Recorded Guarantor Relationship Effective Dates Guarantor Ph one GONZALO COUCH Self [id number] Clinical Notes Includes: Clinical Notes from this encounter No Clinical Notes Recorded
--- OUTSIDE RECORDS SUMMARY | 2025-01-25 19:30 | XMS_ITS ---
Care Plan - [facility] Created on: January 25, 2025 GONZALO COUCH : 1985 Sex: Female Author Organization [facility] Address [address] [place] [address] Phone Care Team Providers Care Lithographer Helper Name Role Phone Unavailable Unavailable Unavailable
--- OUTSIDE RECORDS SUMMARY | 2025-01-25 19:34 | XMS_ITS | Clinical Summary ---
Author Organization [facility] Address [address] [place] [address] Phone Care Team Providers Care Call Center Support Consultant Name Role Phone Unavailable Unavailable Unavailable Reason [...] Dates Guarantor Ph one GONZALO COUCH Self [id number] Clinical Notes Includes: Clinical Notes from this encounter No Clinical Notes Recorded
--- OUTSIDE RECORDS SUMMARY | 2025-01-25 19:34 | XMS_ITS ---
Care Plan - [facility] Created on: January 25, 2025 GONZALO COUCH : 1985 Sex: Female Author Organization [facility] Address [address] [place] [address] Phone Care Team Providers Care Hub Cutter Apprentice Name Role Phone Unavailable Unavailable Unavailable
--- OUTSIDE RECORDS SUMMARY | 2025-01-25 19:34 | XMS_ITS ---
Author Organization [facility] Address [address] [place] [address] Phone Care Team Providers Care Supervisor Harvesting Name Role Phone Unavailable Unavailable Unavailable Plan [...] Dates Guarantor Ph one IZA GONZALO Self [phone] Clinical Notes Includes: Signed Clinical Notes starting from 12/07/2022 No Clinical Notes Recorded
[2025-01-25 19:42] LABS: D Dimer 0.29 mg/L (0.19-0.50)
[2025-01-25 19:44] LABS: Alanine Aminotransferase 307 U/L (14-59); Albumin Level 3.6 g/dL (3.4-5.0); Alkaline Phosphatase 186 U/L (46-116); Amylase 42 U/L (25-115); Anion Gap 6 mmol/L (4-12); Aspartate Amino Transferase 102 U/L (15-37); Bilirubin,Total 0.5 mg/dL (0.00-1.00); Blood Urea Nitrogen 12 mg/dL (7-18); Calcium 9.9 mg/dL (8.5-10.1); Carbon Dioxide 30 mmol/L (21-32); Chloride 103 mmol/L (98-108); Estimated CRCL calculation 90 ml/min; Estimated Glomerular Filt Rate > 60; Glucose 120 mg/dL (70-99); Lipase 30 U/L (16-77); Osmolality Calculated 288 mOsm/kg (285-295); Potassium 4.1 mmol/L (3.5-5.1); Sodium 139 mmol/L (136-145); Total Protein 7.5 g/dL (6.4-8.2); Troponin I 4.8 ng/L (0.00-60.4)
--- NOTE | 2025-01-25 20:50 | PC.NURSE ---
DR MORGAN AT THE BEDSIDE
--- NOTE | 2025-01-25 21:30 | PC.NURSE ---
RESTING ON STRETCHER. NO NEEDS VOICED. CALL LIGHT IN REACH
--- NOTE | 2025-01-25 22:30 | PC.NURSE ---
RESTING ON STRETCHER. NO NEEDS VOICED. CALL LIGHT IN REACH.
--- NOTE | 2025-01-25 23:30 | PC.NURSE ---
DAUGHTER HAS ARRIVED AND IS AT THE BEDSIDE. DR MORGAN HAS UPDATED PATIENT ON CT RESULTS.
--- NOTE | 2025-01-26 00:29 | PC.NURSE ---
PATIENT STARTED TO CRY, STATES SHE DID NOT UNDERSTAND WHAT DR MORGAN WAS EXPLAINING TO HER. IN LAY TERMS, EXPLAINED TO PATIENT CT RESULTS AND THAT THE PLAN IS FOR TRANSFER. CALLS BEING MADE TO ANDREA AT THIS TIME. PATIENT SLOWLY STARTING TO CALM DOWN AND STOP CRYING
[2025-01-26 03:12] VITALS: BP 133/73; PULSE 69; RESP 18; O2SAT 100
== END 2025-01-26 03:12 | disposition short-term general hospital (02) ==
PROVIDERS: Emergency Provider Emergency Medicine; PCP Nurse Practitioner Family
DX: K80.50 Calculus of bile duct without cholangitis or cholecystitis without obstruction (principal); R16.0 Hepatomegaly, not elsewhere classified; K56.609 Unspecified intestinal obstruction, unspecified as to partial versus complete obstruction; F17.210 Nicotine dependence, cigarettes, uncomplicated; Z86.718 Personal history of other venous thrombosis and embolism
CPT/HCPCS: 36415; 71046; 74177; 80053; 82150; 83690; 84484; 85025; 85380; 93005; 99284; 99285; A9270; Q9967

== ENCOUNTER 2025-01-27 11:56 | Inpatient (IN) | payer OTHER, SELFPAY ==
[2025-01-26] VITALS (7 sets, daily range): BP systolic 105–119; BP diastolic 53–76; PULSE 70–86; RESP 16–20; TEMP 36.2–36.8; O2SAT 95–100; BMI 39.1
--- OUTSIDE RECORDS SUMMARY | 2025-01-26 03:46 | XMS_ITS ---
Author Organization [facility] Address [address] [place] [address] Phone Care Team Providers Care Hogshead Packer Name Role Phone Unavailable Unavailable Unavailable Plan of Treatment No Plan of Treatment Recorded Assessments Includes: Assessments for all patient encounters No Assessments Recorded Medical Equipment - Implanted Devices Includes: Current and historical Devices No Medical Equipment Recorded Medications Administered Includes: Administered Medications in patient's chart No Administered Medications Recorded Results Includes: Results from 01/27/2024 through 01/26/2025 No Results Recorded For Specified Dates History [...] Dates Guarantor Ph one IZA GONZALO Self [phone] Clinical Notes Includes: Signed Clinical Notes starting from 12/07/2022 No Clinical Notes Recorded
--- OUTSIDE RECORDS SUMMARY | 2025-01-26 03:46 | XMS_ITS | Clinical Summary ---
Author Organization [facility] Address [facility] [place] [address] Care Team Providers Care Shuttle Spotter Name Role Phone Angelina Ayala [facility] Primary Care Provider [phone] Allergies No known active allergies Medications HYDROcodone-raffaele [...] CDT Gender Identity Female 11/27/2021 5:58 PM PHYSICAL METALLURGIST Sexual Orientation Straight 11/27/2021 5: 58 PM PHYSICAL METALLURGIST Last Filed Vital Signs Vital Sign Reading [...] to complete this topic Insurance Care Teams Shuttle Spotter Relationship Specialty Start Date End Date Angelina Ayala FNP-BC [address] [place] [address] PCP - General NURSE PRACTITIONER 11/30/21
--- OUTSIDE RECORDS SUMMARY | 2025-01-26 03:46 | XMS_ITS | Clinical Summary ---
Author Organization [facility] Address [address] [place] [address] Phone Care Team Providers Care Hand Tile Maker Name Role Phone Unavailable Unavailable Unavailable Reason [...] Dates Guarantor Ph one GONZALO COUCH Self [phone] Clinical Notes Includes: Clinical Notes from this encounter No Clinical Notes Recorded
--- OUTSIDE RECORDS SUMMARY | 2025-01-26 03:46 | XMS_ITS | Encounter Summary ---
Author Organization [facility] Address [address] [place] [id number] Care Team Providers Care Manager Social Media Name Role Phone [facility] [phone] Encounter Details Date Type Department Care Team ([facility] st Contact Info) Description 04/25/2019 Abstract SFL CONVERSION [address] [place] [address] , Generic Conversion, Social History Tobacco Use Types Packs/Day Years Used Date Smoking Tobacco: Never Assessed Comments Unknown Sex and Gender Information Value Date Recorded Sex Assigned at Not on file Legal Sex Female 8:07 PM CDT Gender Identity Female 11/27/2021 5:58 PM BAKER PASTRY Sexual Orientation Straight 11/27/2021 5: 58 PM BAKER PASTRY documented as of this encounter Plan of Treatment Not on file documented as of this encounter Visit Diagnoses Not on filedocumented in this encounter Care Teams Manager Social Media Relationship Specialty Start Date End Date Angelina Ayala FNP-BC [address] [place] [address] PCP - General NURSE PRACTITIONER 11/30/21 documented as of this encounter
--- OUTSIDE RECORDS SUMMARY | 2025-01-26 03:46 | XMS_ITS ---
Care Plan - [facility] Created on: January 26, 2025 GONZALO COUCH : 1985 Sex: Female Author Organization [facility] Address [address] [place] [address] Phone Care Team Providers Care Pearl Digger Name Role Phone Unavailable Unavailable Unavailable
--- NOTE | 2025-01-26 03:59 | PM.IMHP ---
H&P: HPI History of Present Illness Date/Time: 01/26/25 03:59 Chief Complaint: Choleodocholithiasis Narrative: This is a 39-year-old female with a significant past medical history of DVT, kidney stones, current every day smoker, marijuana abuse, methamphetamine abuse who presented initially to [facility] Emergency Room with complaints of shortness of breath/dyspnea. She initially reported shortness of breath with burning in her chest with some numbness down bilateral arms. Patient states that she has had heartburn for the past 3 days. She denies any fever, chills, nausea, vomiting, diarrhea, abdominal pain, chest pain, shortness a breath at the time of my exam. The workup at [facility] included a chest x-ray which was negative. An abdomen/pelvis CT which shown hepatomegaly, choledocholithiasis, mild right inferior caliectasis and pelviectasis with urothelial enhancement representing ascending infection, fecal loading in the transverse colon, mild transverse colon dilation, with an abrupt transition point at the hepatic flexure. Initial labs showed a normal white blood cell count of 6.2, D-dimer 0.29, blood sugar 120, AST 102, ALT 307, alkaline phosphate 186, troponin was negative, amylase and lipase were within normal limits. EKG showed sinus rhythm with a rate of 72, QTC 404. Review of Systems Review of Systems: All systems reviewed & are unremarkable except as noted in HPI and below PMFSH Past Medical History Medical History Amphetamine abuse, episodic DVT (deep venous thrombosis) Adult BMI > 30 (10/17/18) Dental caries Adult general medical examination Lumbar disc disease Bronchospasm Nicotine addiction Urolithiasis Recurrent bronchospasm Surgical History Surgical History H/O tubal ligation History of Hx of lithotripsy History of ureter stent Social History Social History Years smoked: 5 Smoking status: Current every day smoker Second hand tobacco smoke exposure: No Additional smoking assessment comments: 3 cigarettes a day/7 years Alcohol intake: never Substance use: current Substance use type: marijuana Other substance usage details: daily smoking Do You Feel Safe in your Home?: Yes Lack of Transportation: No Lack of Food: Never True Current Housing: I Have Housing Concerned About Future Housing: No Difficulty Paying Gas/Electric Bills: No Difficulty Paying for Meds: No Currently Unemployed: No Education: High School Diploma/GED Difficulty w/ Childcare or Family Care: No Living arrangements: with family Additional living arrangements comments: MOM Spiritual care concerns: No Meds Home Medications and Allergies Home Medications ?Medication ?Instructions ?Recorded ?Confirmed ?Type albuterol sulfate 90 mcg/actuation 1 puff inhalation Q4-6H PRN 01/26/25 01/26/25 History aerosol inhaler shortness of breath meloxicam 15 mg tablet 15 mg PO DAILY 01/26/25 01/26/25 History Allergies Allergy/AdvReac Type Severity Reaction Status Date / Time No Known Allergies Allergy Unknown Verified 01/25/25 18:53 Exam Narrative: General: In no acute distress, well nourished Head: atraumatic, no encephalopathy Eyes: PERRLA, sclera clear ENT: moist mucous membranes, nasal passages clear, missing teeth Neck: supple, no JVD, no adenopathy, trachea midline Cardiac: Normal S1 and S2. No murmur, gallops or friction rubs, peripheral pulses intact. Respiratory: Lungs clear to auscultation, no adventitious lung sounds currently on room air Gastrointestinal: soft, non-distended, non-tender, normoactive bowel sounds. : voiding without difficulty. Extremities: moves all extremities well, no edema Skin: clean, dry, intact. No wounds or lesions. Neuro: Alert and oriented x4, cranial nerves intact, no neuro deficits. Psych: normal mood, normal affect, interactive H&P: Results Imaging Chest x-ray: Radiologist's impression: EXAMINATION: XR chest 2V Exam Date/Time: 01/25/2025 19:04 CDT HISTORY: sob Comparison: 01/09/2023. RESULT: Lines, tubes, and devices: None. Lungs and pleura: Clear. Cardiomediastinal silhouette: Stable. Other: No acute osseous or upper abdominal finding. IMPRESSION: No acute cardiopulmonary process. Reviewed, dictated and finalized at location K. Abdomen/pelvis CT: Radiologist's impression: EXAMINATION: CT abdomen pelvis w con DATE: 01/25/2025 21:17 INDICATION: epigastric pain, elevated LFT's TECHNIQUE: Computed tomography (CT) of the abdomen and pelvis was performed with 100 mL Omnipaque-350 intravenous contrast. Automated exposure control and iterative reconstruction technique were employed. The dose-length product was 1375.24 mGy-cm. COMPARISON: 04/16/2019. FINDINGS: Lower thorax: Coronary artery calcification. Liver: Enlarged. Biliary/Gallbladder: Mild gallbladder wall edema. Cholelithiasis. Mild dilation of the common bile duct 8mm. Suggestion of a small gas containing stone in the distal common bile duct at the pancreatic head (coronal image 57/125). Pancreas: No mass or duct dilation. Spleen: Normal. Adrenals:No mass. Kidneys: Mild right inferior caliectasis, pelviectasis, and urothelial enhancement. Punctate nonobstructing bilateral calculi. No suspicious mass. GI tract: No small bowel dilation. Mildly dilated transverse colon with fecal loading and abrupt transition point at the hepatic flexure and distal decompression. No definite wall thickening or mass at the transition point. Dilated appendix, which is a chronic finding. No periappendiceal or right lower quadrant inflammatory change. Mesentery/Peritoneum: No ascites, mass, or free air. Retroperitoneum: No mass. Pelvis: Empty urinary bladder. Absent uterus.. Soft Tissues: Soft tissues and body wall unremarkable. Bones: No acute osseous finding. IMPRESSION: Hepatomegaly. Choledocholithiasis. Mild right inferior caliectasis and pelviectasis with urothelial enhancement may represent ascending infection. Correlate with urinalysis. Fecal loading in the transverse colon, mild transverse colon dilation, with an abrupt transition point at the hepatic flexure. Consider referral for colonoscopy to exclude an obstructing mass or stricture. Reviewed, dictated and finalized at location K. Assessment and Plan Assessment and plan (1) Choledocholithiasis: Code(s): K80.50 - Calculus of bile duct without cholangitis or cholecystitis without obstruction Status: Acute Assessment and Plan: CT of the abdomen and pelvis show hepatomegaly, choledocholithiasis, mild right inferior caliectasis and pelviectasis with urethral enhancement representing ascending infection, fecal loading in the transverse colon, mild transverse colon dilatation with an abrupt transition point at the hepatic flexure NPO status GI consulted MRCP ordered Ultrasound gallbladder ordered Continue normal saline at 100 mL/hour for hydration (2) Transaminitis: Code(s): R74.01 - Elevation of levels of liver transaminase levels Status: Acute Assessment and Plan: Likely secondary to choledocholithiasis Initial AST 102, ALT 307, alkaline phosphate 186 Continue to trend (3) GERD (gastroesophageal reflux disease): Code(s): K21.9 - Gastro-esophageal reflux disease without esophagitis Status: Acute Assessment and Plan: Protonix ordered Quality VTE Prophylaxis VTE prophylaxis: mechanical ordered Hospitalist [facility] Advance Care Plan I have confirmed that the patient's Advanced Care Plan is present, code status is documented, or surrogate decision maker is listed in patient medical record.: Yes Medication Reconciliation I have utilized all available resources to obtain, update and review the patients current medications (includes all prescriptions, OTC, herbals, cannabis, and nutritional supplements).: Yes
--- NOTE | 2025-01-26 04:19 | ADMGEN ---
This patient, Nataly Hurley, was admitted to [facility] Surg Room 324-01. Patient/family oriented to hospital policies and general routines including ID bracelet, bed and alarms, visiting hours, pain management, procedures, bathroom and other care routines, personal items, smoking policy, room service/diet, and visiting hours. Information on how to activate the Rapid Response Team has been discussed. Patient/Family are encouraged to report perceived risks to care and to ask questions if they do not understand what they are told or what they should do.
[2025-01-26] MEDS: SODIUM CHLORIDE 0.9% IV 1,000 ML 100 ML IV CONT (05:42)
[2025-01-26 06:26] LABS: Basophils Absolute Auto 0.1 K/mm3 (0.0-0.1); Basophils Percent Auto 0.6 % (0.2-1.2); Eosinophils Absolute Auto 0.2 K/mm3 (0-0.3); Eosinophils Percent Auto 2.5 % (0-4.4); Hematocrit 43.4 % (37.0-47.0); Hemoglobin 14.1 g/dL (12.0-15.0); Immature Granulocyte Absolute 0.03 K/mm3 (0.00-0.031); Immature Granulocyte Percent A 0.4 % (0-0.5); Lymphocytes Absolute Auto 2.07 K/mm3 (0.9-3.2); Lymphocytes Percent Auto 26.8 % (18.3-44.2); Mean Corpuscular HGB Conc 32.5 g/dl (32-36); Mean Corpuscular Hemoglobin 29.3 pg (26-34); Mean Corpuscular Volume 90.2 fl (80-100); Mean Platelet Volume 10.2 fl (7.4-10.4); Monocytes Absolute Auto 0.5 K/mm3 (0.1-0.6); Monocytes Percent Auto 6.6 % (2.6-8.5); Neutrophils Absolute Auto 4.9 K/mm3 (1.3-6.7); Neutrophils Percent Auto 63.1 % (45.5-73.1); Platelet Count Result 242 k/mm3 (150-375); Red Blood Count 4.81 M/mm3 (4.2-5.4); Red Cell Distribution Width 13.2 % (11.5-14.5); White Blood Count 7.7 K/mm3 (4.5-10.0)
[2025-01-26 08:57] LABS: Alanine Aminotransferase 251 U/L (6-35); Albumin Level 3.9 g/dL (3.5-5.1); Alkaline Phosphatase 147 U/L (38-126); Anion Gap 9 mmol/L (4-12); Aspartate Amino Transferase 91 U/L (14-36); Bilirubin,Total 0.7 mg/dL (0.2-1.3); Blood Urea Nitrogen 10 mg/dL (7-17); Calcium 9.2 mg/dL (8.4-10.2); Carbon Dioxide 24 mmol/L (22-30); Chloride 103 mmol/L (98-107); Estimated CRCL calculation 114 ml/min; Estimated Glomerular Filt Rate > 60; Glucose 96 mg/dL (65-110); Magnesium 1.7 mg/dL (1.6-2.3); Potassium 3.8 mmol/L (3.4-5.0); Sodium 136 mmol/L (137-145)
--- NOTE | 2025-01-26 09:14 | P.CONGI_ITS ---
<Statement entered by Scottie Lui MD - 01/26/25 15:36> I, Scottie Lui MD, have provided a substantive portion of the care of this patient and discussed the patient with my Nurse Practitioner. I have reviewed any new relevant radiographic and laboratory results including medications. I agree with her documentation as noted below.?I personally performed the medical decision making and much of the history and exam for this encounter. briefly, here with abdominal pain, CT scan showed cholelithiasis and also stone in bile duct (this is confirmed with MRCP), also noted elevated transminases, denies alcohol use but + amphetamine abuse. She had hysterectomy, no other surgeries. Plan is ERCP tomorrow and also surgery will evaluate patient for interval cholecystectomy. Assessment and Plan Assessment and plan (1) Choledocholithiasis: Code(s): K80.50 - Calculus of bile duct without cholangitis or cholecystitis without obstruction <Randee Gill, ROLLER HELPER - Last Filed: 01/26/25 09:55> Status: Acute <Randee DGina Gill, ROLLER HELPER - Last Filed: 01/26/25 09:55> (2) Acute cholecystitis: Code(s): K81.0 - Acute cholecystitis <Randee Gill, ROLLER HELPER - Last Filed: 01/26/25 09:55> Status: Acute <Randee DGina Gill, ROLLER HELPER - Last Filed: 01/26/25 09:55> (3) Elevated LFTs: Code(s): R79.89 - Other specified abnormal findings of blood chemistry < Randee DGina Gill ROLLER HELPER - Last Filed: 01/26/25 09:55> Status: Acute <Randee D. Jairo, ROLLER HELPER - Last Filed: 01/26/25 09:55> (4) Constipation: Qualifiers: Constipation type: other constipation type Qualified Code(s): K59.09 - Other constipation <Randee DGina Gill, ROLLER HELPER - Last Filed: 01/26/25 09:55> Code(s): K59.00 - Constipation, unspecified <Randee Gill, ROLLER HELPER - Last Filed: 01/26/25 09:55> Status: Acute <Randee D. Eslinger, ROLLER HELPER - Last Filed: 01/26/25 09:55> (5) Abnormal digestive system diagnostic imaging: Code(s): R93.3 - Abnormal findings on diagnostic imaging of other parts of digestive tract <Randee Gill APRN - Last Filed: 01/26/25 09:55> Status: Acute <Randee Gill ROLLER HELPER - Last Filed: 01/26/25 09:55> Assessment and Plan: 1. Upper abdominal pain/elevated LFT's/decreased appetite/ Choledocholithiasis/acute cholecystitis: Patient's mother with history of cholecystectomy. Patient admits to epigastric and bilateral upper abdominal pain that started prior to her presenting to [facility] yesterday. This pain has since resolved. Admits to a decreased appetite a few days prior to admission. Ultrasound showed choledocholithiasis with common bile dilation measuring 9 mm. Normal size gallbladder with gallstones, gallbladder wall thickening and positive sonographic Rios sign consistent with acute cholecystitis. CT scan showed mild gallbladder wall edema, coli lithiasis, mild dilation of the common bile duct measuring 8 mm, and suggestion of small gas containing stone in the distal common bile duct at the pancreatic head. LFT still elevated but slightly trending down since yesterday showing total bilirubin 0.7, AST 102-->91, ALT 307-->251, alkaline phosphatase 186-->147. Amylase and lipase were normal. WBCs normal at 7.7 no anemia noted * MRCP pending * patient will likely need an ERCP with stone extraction tomorrow * likely need a cholecystectomy but inpatient versus outpatient will be determined after additional workup * will continue trending LFTs 2. Constipation/abnormal imaging digestive: CT scan showed fecal loading in the transverse colon, mid transverse colon dilation with abrupt transition point at the hepatic flexure. Prior to admission patient states she is having regular bowel movements every 1-2 days. She has never had a colonoscopy. Family history negative for CRC or IBD. Given other acute illness she will likely not tolerate bowel prep very well at this time. * start MiraLax BID * consider repeat imaging tomorrow to reassess * Patient will need to follow up with us outpatient to discuss scheduling outpatient colonoscopy to further evaluate abnormal CT findings if not done while inpatient Thank you very much for allowing me share in the care this very nice patient This report may have been done utilizing a voice recognition system. Attempts have been made to correct errors. However, there may be uncorrected grammatical, spelling, and recognition errors present. <Randee Gill APRN - Last Filed: 01/26/25 09:55> GI Consult Note Consult date/time: 01/26/25 09:14 <Randee Gill APRN - Last Filed: 01/26/25 09:55> Reason for consult: abdominal pain and choledocholithiasis <Randee Gill APRN - Last Filed: 01/26/25 09:55> HPI: Nataly Hurley is a 39 year old female with past medical history of DVT, kidney stones, depression, marijuana use, methamphetamine abuse, tubal ligation, , and tobacco use who presented with shortness of breath, burning in her chest and numbness in arms. Patient initially [facility]. GI has been consulted for any choledocholithiasis. Patient states that prior to admission she was having epigastric /bilateral upper quadrant abdominal pain but was unable to provide any further details about this pain. She admits to a decreased appetite that had been occurring for the past few days. She denies any known bloating, odynophagia, dysphagia, reflux, regurgitation, early satiety, unexplained weight loss. She is having regular bowel movements every 1-2 days and denies constipation, diarrhea, hematochezia, or melena. Rare as needed basis. Denies alcohol use. Admits to methamphetamine, marijuana, and tobacco use patient's mother with history of cholecystectomy family history negative for GI cancers. ENDOSCOPY HISTORY: Patient has never had an EGD or colonoscopy LABS AND STOOL STUDIES: Labs 01/26/2025: WBCs 8, HGB 14, HCT 43, MCV 90, platelets 242 Sodium 136, potassium 3.8, BUN 10, creatinine 0.65, GFR > 60 Calcium 9.2, magnesium 1.7 Total bilirubin 0.7, AST 91, ALT 251 in phosphatase 147, albumin 3.9 TSH 2.270 LABS 01/25/2025: Total bilirubin 0.5, AST 102, ALT 307, alkaline phosphatase 186, amylase 42 and lipase 30 IMAGING: Abdominal Ultrasound 01/26/2025: FINDINGS: The visualized portions of the head, body, and tail of the pancreas are normal. The liver is normal without focal lesion. There is normal flow in main portal vein. The gallbladder is normal in size and contains gallstones. Gallbladder wall thickening is noted. There is a positive sonographic Rios sign. The common duct is dilated to 9 mm. There is a stone in the common duct. IMPRESSION: 1. Choledocholithiasis with common duct dilatation. 2. Normal-sized gallbladder with gallstones, gallbladder wall thickening, and positive sonographic Rios sign, consistent with acute cholecystitis. CT abd/pelvis w/contrast 01/25/2025: FINDINGS: Lower thorax: Coronary artery calcification. Liver: Enlarged. Biliary/Gallbladder: Mild gallbladder wall edema. Cholelithiasis. Mild dilation of the common bile duct 8mm. Suggestion of a small gas containing stone in the distal common bile duct at the pancreatic head (coronal image 57/125). Pancreas: No mass or duct dilation. Spleen: Normal. Adrenals:No mass. Kidneys: Mild right inferior caliectasis, pelviectasis, and urothelial enhancement. Punctate nonobstructing bilateral calculi. No suspicious mass. GI tract: No small bowel dilation. Mildly dilated transverse colon with fecal loading and abrupt transition point at the hepatic flexure and distal decompression. No definite wall thickening or mass at the transition point. Dilated appendix, which is a chronic finding. No periappendiceal or right lower quadrant inflammatory change. Mesentery/Peritoneum: No ascites, mass, or free air. Retroperitoneum: No mass. Pelvis: Empty urinary bladder. Absent uterus.. Soft Tissues: Soft tissues and body wall unremarkable. Bones: No acute osseous finding. IMPRESSION: Hepatomegaly. Choledocholithiasis. Mild right inferior caliectasis and pelviectasis with urothelial enhancement may represent ascending infection. Correlate with urinalysis. Fecal loading in the transverse colon, mild transverse colon dilation, with an abrupt transition point at the hepatic flexure. Consider referral for colonoscopy to exclude an obstructing mass or stricture. <Randee Gill APRN - Last Filed: 01/26/25 09:55> Review of Systems 2 Constitutional: Constitutional: Reports as per HPI and Reports fatigue < Randee Gill APRN - Last Filed: 01/26/25 09:55> ENT: Reports as per HPI <Randee Gill APRN - Last Filed: 01/26/25 09:55> Comments: missing front teeth <Randee Gill APRN - Last Filed: 01/26/25 09:55> Cardiovascular: Cardiovascular: Reports as per HPI, Denies chest pain and Denies dyspnea <Randee Gill APRN - Last Filed: 01/26/25 09:55> Respiratory: Respiratory: Denies cough and Denies dyspnea <Randee Gill APRN - Last Filed: 01/26/25 09:55> Gastrointestinal: Gastrointestinal: Reports as per HPI <Randee Gill APRN - Last Filed: 01/26/25 09:55> Musculoskeletal: Musculoskeletal: Reports as per HPI <Randee Gill APRN - Last Filed: 01/26/25 09:55> Integumentary/Breasts: Skin/Breast: Reports as per HPI <Randee Gill APRN - Last Filed: 01/26/25 09:55> Neurologic: Reports numbness (arms and hands) <Randee Gill APRN - Last Filed: 01/26/25 09:55> Psychiatric: Psychiatric: Reports as per HPI <Randee Gill APRN - Last Filed: 01/26/25 09:55> Endocrine: Endocrine: Reports no additional endocrine complaints <Randee Gill APRN - Last Filed: 01/26/25 09:55> Hematologic/Lymphatic: Hematologic/Lymphatic: Reports no additional hematologic/lymphatic complaints <Randee Gill APRN - Last Filed: 01/26/25 09:55> PMFSH Past Medical History Medical History: Medical History Amphetamine abuse, episodic DVT (deep venous thrombosis) Adult BMI > 30 (10/17/18) Dental caries Adult general medical examination Lumbar disc disease Bronchospasm Nicotine addiction Urolithiasis Recurrent bronchospasm <Randee Gill APRN - Last Filed: 01/26/25 09:55> Surgical History Surgical History: Surgical History History of partial hysterectomy History of Hx of lithotripsy History of ureter stent <Randee Gill APRN - Last Filed: 01/26/25 09:55> Social History Social History: Social History Years smoked: 5 Smoking status: Current every day smoker Second hand tobacco smoke exposure: No Additional smoking assessment comments: 3 cigarettes a day/7 years Alcohol intake: never Substance use: current Substance use type: marijuana and amphetamines Other substance usage details: Marijuana - daily, amphetamines intermittent (no use x 2-3 weeks) Do You Feel Safe in your Home?: Yes Lack of Transportation: No Lack of Food: Never True Current Housing: I Have Housing Concerned About Future Housing: No Difficulty Paying Gas/Electric Bills: No Difficulty Paying for Meds: No Currently Unemployed: No Education: High School Diploma/GED Difficulty w/ Childcare or Family Care: No Living arrangements: with family Additional living arrangements comments: MOM Spiritual care concerns: No <Randee Gill APRN - Last Filed: 01/26/25 09:55> Meds Home Medications and Allergies Home medications: Home Medications ?Medication ?Instructions ?Recorded ?Confirmed ?Type albuterol sulfate 90 mcg/actuation 1 puff inhalation Q4-6H PRN 01/26/25 01/26/25 History aerosol inhaler shortness of breath meloxicam 15 mg tablet 15 mg PO DAILY 01/26/25 01/26/25 History <Randee Gill APRN - Last Filed: 01/26/25 09:55> Allergies/Adverse reactions: Allergies Allergy/AdvReac Type Severity Reaction Status Date / Time No Known Allergies Allergy Unknown Verified 01/25/25 18:53 <Randee Gill APRN - Last Filed: 01/26/25 09:55> Vital Signs Vital Signs - 24 hr 01/26/25 04:32 01/26/25 05:59 Temperature 98.2 F Pulse Rate 74 Respiratory Rate 16 Blood Pressure 114/56 L Pulse Oximetry 100 Oxygen Delivery Room Air <Randee Gill APRN - Last Filed: 01/26/25 09:55> Exam 2 Const: General: cooperative, healthy appearing, comfortable, no acute distress and well developed <Randee Gill APRN - Last Filed: 01/26/25 09:55> Orientation/consciousness: oriented to person, oriented to place, oriented to time and patient oriented x3 <Randee Gill APRN - Last Filed: 01/26/25 09:55> HENMT: Head: normal to inspection, normocephalic and atraumatic <Randee Gill APRN - Last Filed: 01/26/25 09:55> Mouth: Yes Normal oral and palatal mucosa present and Yes moist mucous membranes <Randee Gill APRN - Last Filed: 01/26/25 09:55> Other: missing front teeth <Randee Gill APRN - Last Filed: 01/26/25 09:55> Eyes: General: appearance normal, both eyes and all related structures < Randee Gill APRN - Last Filed: 01/26/25 09:55> Conjunctivae: conjunctivae normal <Randee Gill APRN - Last Filed: 01/26/25 09:55> Sclera: sclerae normal <Randee Gill APRN - Last Filed: 01/26/25 09:55> Pupils: Equal, round and reactive pupils present <Randee Gill APRN Last Filed: 01/26/25 09:55> Neck: Neck: normal visual inspection <Randee Gill APRN - Last Filed: 01/26/25 09:55> Chest: Chest palpation & inspection: normal inspection of the chest < Randee Gill APRN - Last Filed: 01/26/25 09:55> Resp: Effort & Inspection: normal respiratory effort and able to speak in complete sentences <Randee Gill APRN - Last Filed: 01/26/25 09:55> Auscultation: clear to auscultation bilaterally <Randee Israelstefaniana ROLLER HELPER Last Filed: 01/26/25 09:55> Cardio: Jugular venous distension: no JVD <Randee IsraelstefaniDUC perezN Last Filed: 01/26/25 09:55> Rate: regular rate <Randee Gill APRN Last Filed: 01/26/25 09:55> Rhythm: regular rhythm <Randee Israelstefaniana ROLLER HELPER Last Filed: 01/26/25 09:55> Heart sounds: S1 normal heart sound present and S2 normal heart sound present <Randee IsraelstefaniDUC perezN Last Filed: 01/26/25 09:55> GI: Inspection: normal to inspection <Randee ArroyoGina Lindykary ROLLER HELPER Last Filed: 01/26/25 09:55> GI Palp: Yes Soft to palpation, No Tenderness to palpation present (GI), No Guarding due to palpation present (GI) and Yes No hepatosplenomegaly present <Randee ArroyoGina Lindykary ROLLER HELPER Last Filed: 01/26/25 09:55> Auscultation: normal bowel sounds <Randee IsraelstefaniDUC perezN Last Filed: 01/26/25 09:55> Rectal Exam: deferred <Randee ArroyoGina Lindykary ROLLER HELPER Last Filed: 01/26/25 09:55> Skin: General skin exam: normal color and no rashes or lesions noted < Randee ArroyoGina Lindykary ROLLER HELPER Last Filed: 01/26/25 09:55> Neuro: General: oriented to person, oriented to place, oriented to time and patient oriented x3 <Randee ArroyoGina Lindykary ROLLER HELPER Last Filed: 01/26/25 09:55> Cranial nerves: Yes Equal, round and reactive pupils present <Randee ArroyoGina Lindykary ROLLER HELPER Last Filed: 01/26/25 09:55> Speech: normal speech <Randee ArroyoGina Lindykary ROLLER HELPER Last Filed: 01/26/25 09:55> Extrem: General: normal to inspection and no clubbing, cyanosis or edema < Randee ArroyoGina Gill APRN Last Filed: 01/26/25 09:55> Psych: Appearance: grossly normal and well kempt <Randee Gill APRN - Last Filed: 01/26/25 09:55> Affect: normal affect <Randee Gill APRN - Last Filed: 01/26/25 09:55> Results Labs CBC & Chem 7: 01/26/25 06:16 01/26/25 06:16 <Randee Gill APRN - Last Filed: 01/26/25 09:55> Labs: Short CBC 01/26/25 Range/Units 06:16 WBC 7.7 (4.5-10.0) K/mm3 Hgb 14.1 (12.0-15.0) g/dL Hct 43.4 (37.0-47.0) % Plt Count 242 (150-375) k/mm3 BMP 01/26/25 06:16 Sodium 136 L Potassium 3.8 Chloride 103 Carbon Dioxide 24 BUN 10 Creatinine 0.65 L Glucose 96 Calcium 9.2 Liver Function 01/26/25 Range/Units 06:16 Total Bilirubin 0.7 (0.2-1.3) mg/dL AST 91 H (14-36) U/L ALT 251 H (6-35) U/L Alkaline Phosphatase 147 H (38-126) U/L Albumin 3.9 (3.5-5.1) g/dL <Randee Gill APRN - Last Filed: 01/26/25 09:55>
[2025-01-26] MEDS: PANTOPRAZOLE SODIUM IV 40 MG VIAL IV PUSH (09:50)
--- NOTE | 2025-01-26 13:06 | PM.CNGS ---
Assessment and Plan Assessment and plan (1) Choledocholithiasis: Code(s): K80.50 - Calculus of bile duct without cholangitis or cholecystitis without obstruction Status: Acute Assessment and Plan: CT, ultrasound, and MRCP all show evidence of cholelithiasis and choledocholithiasis with mildly dilated common bile duct. No evidence of pancreatitis. GI is planning ERCP. Will await these results. She will eventually need a laparoscopic cholecystectomy. Will continue to follow along to decipher timing of surgery depending on the results of the ERCP. (2) Transaminitis: Code(s): R74.01 - Elevation of levels of liver transaminase levels Status: Acute Assessment and Plan: AST, ALT, and alk phos elevated. Total bilirubin normal, suggesting no high grade biliary obstruction. MRCP today still showed choledocholithiasis. GI following and planning ERCP. (3) Acute cholecystitis: Code(s): K81.0 - Acute cholecystitis Status: Acute Assessment and Plan: US showed gallstones with gallbladder wall thickening and positive sonographic Rios's sign. MRCP also showed some gallbladder wall thickening that could be related to acute versus chronic cholecystitis. She is no longer having any abdominal or chest pain. She is mildly tender in the epigastric area. WBC count normal. Will continue to follow along. Will eventually need an interval cholecystectomy, but will first await ERCP results. (4) Amphetamine abuse, episodic: Code(s): F15.10 - Other stimulant abuse, uncomplicated Status: Acute Assessment and Plan: Denies any use in the past 2-3 weeks. Encouraged to avoid any further use and she is trying to stay clean for her children. (5) Constipation: Qualifiers: Constipation type: other constipation type Qualified Code(s): K59.09 - Other constipation Code(s): K59.00 - Constipation, unspecified Status: Acute Assessment and Plan: CT scan showed fecal loading in the transverse colon with abrupt transition point at the hepatic flexure. She has been moving her bowels without any noted issues. Continue Miralax BID for now. GI evaluated and recommend outpatient colonoscopy. (6) Nicotine addiction: Code(s): F17.200 - Nicotine dependence, unspecified, uncomplicated Status: Acute Plan I have discussed the patient's case and plan of care with Dr. Ortega. History of Present Illness Consult details Consult date: 01/26/25 Reason for consult: other (Choledocholithiasis, elevated LFTs) Requesting physician: Scottie Lui MD Narrative: This is a 39-year-old woman with PMH of substance abuse, hx of DVT in 2020, and tobacco abuse, who we have been asked to see in surgical consultation for choledocholithiasis and elevated liver enzymes. She presented to [place] ED last night as her primary care provider recommended her be evaluated for complaints of shortness of breath, burning in the chest, and arm numbness. She reportedly had heartburn for 3 days. Yesterday, she noticed shortness of breath and burning in her chest with numbness down bilateral arms. Workup at [facility] showed a negative chest x-ray and CT scan of the abdomen and pelvis which showed choledocholithiasis with mildly dilated common bile duct, cholelithiasis with mild gallbladder wall edema, mild right inferior caliectasis and pelviectasis with urothelial enhancement, and fecal loading in the transverse colon, mild transverse colon dilation with abrupt transition point at the hepatic flexure, recommending referral for colonoscopy to exclude an obstructing mass or stricture. Labs showed a normal white blood cell count and mildly elevated LFTs within normal total bilirubin is 0.5, AST 102, ALT 307, alk-phos 186. Lipase normal. She was directly admitted to [facility] for further evaluation. GI is consulted and ordered MRCP today that showed choledocholithiasis and cholelithiasis with gallbladder wall thickening which may be seen with acute or chronic cholecystitis. She additionally has an abdominal ultrasound that shows choledocholithiasis with common bile duct dilatation and a normal size gallbladder with gallstones, gallbladder wall thickening, and positive sonographic Rios sign. She is now seen on the medical floor. Review of Systems Review of Systems: All systems reviewed & are unremarkable except as noted in HPI and below PMFSH Past Medical History Medical History Amphetamine abuse, episodic DVT (deep venous thrombosis) Adult BMI > 30 (10/17/18) Dental caries Adult general medical examination Lumbar disc disease Bronchospasm Nicotine addiction Urolithiasis Recurrent bronchospasm Surgical History Surgical History History of partial hysterectomy History of Hx of lithotripsy History of ureter stent Social History Social History Years smoked: 5 Smoking status: Current every day smoker Second hand tobacco smoke exposure: No Additional smoking assessment comments: 3 cigarettes a day/7 years Alcohol intake: never Substance use: current Substance use type: marijuana and amphetamines Other substance usage details: Marijuana - daily, amphetamines intermittent (no use x 2-3 weeks) Do You Feel Safe in your Home?: Yes Lack of Transportation: No Lack of Food: Never True Current Housing: I Have Housing Concerned About Future Housing: No Difficulty Paying Gas/Electric Bills: No Difficulty Paying for Meds: No Currently Unemployed: No Education: High School Diploma/GED Difficulty w/ Childcare or Family Care: No Living arrangements: with family Additional living arrangements comments: MOM Spiritual care concerns: No Meds Home Medications and Allergies Home Medications ?Medication ?Instructions ?Recorded ?Confirmed ?Type albuterol sulfate 90 mcg/actuation 1 puff inhalation Q4-6H PRN 01/26/25 01/26/25 History aerosol inhaler shortness of breath meloxicam 15 mg tablet 15 mg PO DAILY 01/26/25 01/26/25 History Allergies Allergy/AdvReac Type Severity Reaction Status Date / Time No Known Allergies Allergy Unknown Verified 01/25/25 18:53 Vital Signs Vital Signs - 24 hr 01/26/25 04:32 01/26/25 05:59 Temperature 98.2 F Pulse Rate 74 Respiratory Rate 16 Blood Pressure 114/56 L Pulse Oximetry 100 Oxygen Delivery Room Air Exam Const: General: comfortable and no acute distress Nutritional Appearance: overweight Orientation/consciousness: patient oriented x3 HENMT: Head: normocephalic and atraumatic Ears: hearing grossly normal bilaterally Mouth: Yes moist mucous membranes Eyes: General: appearance normal, both eyes and all related structures Pupils: Equal, round and reactive pupils present Neck: Neck: normal visual inspection and full ROM Resp: Effort & Inspection: no respiratory distress Auscultation: clear to auscultation bilaterally Cardio: Rate: regular rate Rhythm: regular rhythm Peripheral pulses: Peripheral pulses 2+ throughout GI: Inspection: non-distended GI Palp: Yes Soft to palpation, Yes Tenderness to palpation present (GI) (mild epigastric tenderness), No Guarding due to palpation present (GI) and No Rebound tenderness present Auscultation: normal bowel sounds Skin: General skin exam: normal color Neuro: General: moves all extremities and no focal motor deficits Speech: normal speech Motor exam (neuro): 5/5 motor strength present throughout Extrem: General: normal to inspection and no edema Psych: Mental Status: mental status grossly normal Attitude: cooperative Insight: Good insight present (Psych) Judgement: Good judgement present (Psych) Results Labs 01/26/25 06:16 01/26/25 06:16 Labs: Abnormal lab results 01/26/25 Range/Units 06:16 Sodium 136 L (137-145) mmol/L Creatinine 0.65 L (0.7-1.0) mg/dL AST 91 H (14-36) U/L ALT 251 H (6-35) U/L Alkaline Phosphatase 147 H (38-126) U/L Diabetes panel 01/26/25 Range/Units 06:16 Sodium 136 L (137-145) mmol/L Potassium 3.8 (3.4-5.0) mmol/L Chloride 103 (98-107) mmol/L Carbon Dioxide 24 (22-30) mmol/L BUN 10 (7-17) mg/dL Creatinine 0.65 L (0.7-1.0) mg/dL Glucose 96 (65-110) mg/dL Calcium 9.2 (8.4-10.2) mg/dL AST 91 H (14-36) U/L ALT 251 H (6-35) U/L Alkaline Phosphatase 147 H (38-126) U/L Total Protein 7.0 (6.3-8.2) g/dL Albumin 3.9 (3.5-5.1) g/dL Thyroid panel 01/26/25 Range/Units 06:16 TSH 2.270 (0.465-4.680) uIU/mL Calcium panel 01/26/25 Range/Units 06:16 Calcium 9.2 (8.4-10.2) mg/dL Albumin 3.9 (3.5-5.1) g/dL Pituitary panel 01/26/25 Range/Units 06:16 Sodium 136 L (137-145) mmol/L Potassium 3.8 (3.4-5.0) mmol/L Chloride 103 (98-107) mmol/L Carbon Dioxide 24 (22-30) mmol/L BUN 10 (7-17) mg/dL Creatinine 0.65 L (0.7-1.0) mg/dL Glucose 96 (65-110) mg/dL Calcium 9.2 (8.4-10.2) mg/dL TSH 2.270 (0.465-4.680) uIU/mL Adrenal panel 01/26/25 Range/Units 06:16 Sodium 136 L (137-145) mmol/L Potassium 3.8 (3.4-5.0) mmol/L Chloride 103 (98-107) mmol/L Carbon Dioxide 24 (22-30) mmol/L BUN 10 (7-17) mg/dL Creatinine 0.65 L (0.7-1.0) mg/dL Glucose 96 (65-110) mg/dL Calcium 9.2 (8.4-10.2) mg/dL Total Bilirubin 0.7 (0.2-1.3) mg/dL AST 91 H (14-36) U/L ALT 251 H (6-35) U/L Alkaline Phosphatase 147 H (38-126) U/L Total Protein 7.0 (6.3-8.2) g/dL Albumin 3.9 (3.5-5.1) g/dL All other labs normal. Imaging Additional studies: ITS Impressions Abdomen Ultrasound 01/26/25 08:28 IMPRESSION: 1. Choledocholithiasis with common duct dilatation. 2. Normal-sized gallbladder with gallstones, gallbladder wall thickening, and positive sonographic Rios sign, consistent with acute cholecystitis. MRCP 01/26/25 12:26 IMPRESSION: 1. Choledocholithiasis with mildly dilated common duct. 2. Cholelithiasis. Gallbladder wall thickening may be seen with acute or chronic cholecystitis.
[2025-01-26] MEDS: HYDROcodone/acetaminophen (*CRX) 5-325 MG TABLET 1 TAB PO (13:38)
[2025-01-26 14:23] LABS: Add Urine Microscopic? YES; Appearance Urine Cloudy (Clear); Bacteria Urine 4+ /hpf; Bilirubin Urine Negative (Negative); Blood Urine Negative (Negative); Color Urine Yellow (Yellow); Glucose Urine UA Negative (Negative); Ketones Urine Trace mg/dL (Negative); Leukocyte Esterase Ur 1+ LEU/UL (Negative); Nitrate Urine Positive (Negative); Non Pathogenic Casts 0-2; Protein Urine Trace mg/dL (Negative); RBC Urine 0-2 /hpf (0-2); Specific Grav Ur 1.034 (1.001-1.035); Squamous Epithelial Cell Urine Occasional /hpf (Few); Urobilinogen Urine 0.2 mg/dL (<2.0); WBC Urine 21-50 /hpf (0-3)
--- NOTE | 2025-01-26 15:44 | PM.IMPN ---
Progress Note: A&P Assessment and Plan (1) Choledocholithiasis: Code(s): K80.50 - Calculus of bile duct without cholangitis or cholecystitis without obstruction Status: Acute Assessment and Plan: CT of the abdomen and pelvis show hepatomegaly, choledocholithiasis, mild right inferior caliectasis and pelviectasis with urethral enhancement representing ascending infection, fecal loading in the transverse colon, mild transverse colon dilatation with an abrupt transition point at the hepatic flexure NPO status GI consulted MRCP ordered Ultrasound gallbladder ordered Continue normal saline at 100 mL/hour for hydration (2) Transaminitis: Code(s): R74.01 - Elevation of levels of liver transaminase levels Status: Acute Assessment and Plan: Likely secondary to choledocholithiasis Initial AST 102, ALT 307, alkaline phosphate 186 Continue to trend (3) GERD (gastroesophageal reflux disease): Code(s): K21.9 - Gastro-esophageal reflux disease without esophagitis Status: Acute Assessment and Plan: Protonix ordered Plan patient with abdomen pain, and CT scan showing Choleodocholithiasis seen by GI and had MRCP which also showed Choledocholithiasis with mildly dilated common duct patient will need ERCP to extract gallstones, Cholelithiasis. Gallbladder wall thickening may be seen with acute or chronic cholecystitis and rios sign positive on US, seen by surgery service, patient will need a laparoscopic cholecystectomy possibly as outpatient, patient also c/o constipation GI has started miralax BID and will monitor and plan. Subjective Date/time seen: 01/26/25 15:44 Interval history: Choleodocholithiasis H&P-Narrative: This is a 39-year-old female with a significant past medical history of DVT, kidney stones, current every day smoker, marijuana abuse, methamphetamine abuse who presented initially to [facility] with complaints of shortness of breath/dyspnea. She initially reported shortness of breath with burning in her chest with some numbness down bilateral arms. Patient states that she has had heartburn for the past 3 days. She denies any fever, chills, nausea, vomiting, diarrhea, abdominal pain, chest pain, shortness a breath at the time of my exam. The workup at [facility] included a chest x-ray which was negative. An abdomen/pelvis CT which shown hepatomegaly, choledocholithiasis, mild right inferior caliectasis and pelviectasis with urothelial enhancement representing ascending infection, fecal loading in the transverse colon, mild transverse colon dilation, with an abrupt transition point at the hepatic flexure. Initial labs showed a normal white blood cell count of 6.2, D-dimer 0.29, blood sugar 120, AST 102, ALT 307, alkaline phosphate 186, troponin was negative, amylase and lipase were within normal limits. EKG showed sinus rhythm with a rate of 72, QTC 404. patient with abdomen pain, and CT scan showing Choleodocholithiasis seen by GI and had MRCP which also showed Choledocholithiasis with mildly dilated common duct patient will need ERCP to extract gallstones, Cholelithiasis. Gallbladder wall thickening may be seen with acute or chronic cholecystitis and Rios sign positive on US, seen by surgery service, patient will need a laparoscopic cholecystectomy possibly as outpatient, patient also c/o constipation GI has started miralax BID and will monitor and plan. Review of Systems Review of Systems: All systems reviewed & are unremarkable except as noted in HPI and below Exam Narrative: Morbidly obese Patient is comfortable, NAD HEENT: eyes are clear and none icteric LUNGS:CTA HEART: RR S1S2 ABD: BS+, Soft and diffusely tender. Lower extremities: no edema SKIN: nonjaundiced Neuro: grossly intact. Objective Data Vital Signs Vital Signs: Vital Signs - 24 hr 01/26/25 04:32 01/26/25 05:59 01/26/25 08:00 Temperature 36.8 C 36.2 C L Pulse Rate 74 76 Respiratory Rate 16 16 Blood Pressure 114/56 L 115/54 L Pulse Oximetry 100 98 Oxygen Delivery Room Air 01/26/25 12:00 Temperature 36.8 C Pulse Rate 70 Respiratory Rate 20 Blood Pressure 105/72 Pulse Oximetry 95 Oxygen Delivery Intake/Output Intake/Output: Intake & Output 01/23/25 01/25/25 01/25/25 01/26/25 23:59 00:59 23:59 23:59 Intake Total 0 Balance 0 Meds/Results Medications: Active Medications Generic Name Dose Route Start Last Admin Trade Name Freq PRN Reason Stop Dose Admin Acetaminophen 650 mg 01/26/25 04:07 Acetaminophen 325 Mg Tablet PO Q4H PRN Mild Pain (1-3) or Fever Hydrocodone Bitart/Acetaminophen 1 tab 01/26/25 04:07 01/26/25 13:38 Hydrocodone/Acetaminophen (*Crx) 5-325 Mg Tablet PO 1 tab Q4H PRN Administration Moderate Pain (4-6) Albuterol 1 puff 01/26/25 04:06 Albuterol Sulfate (*Sp) Aerosol 1 Puff INHALATION Q4-6H PRN shortness of breath Sodium Chloride 1,000 mls @ 100 mls/hr 01/26/25 04:10 01/26/25 05:42 Normal Saline Iv IV CONT 100 mls/hr .Q10H FELA Administration Morphine Sulfate 2 mg 01/26/25 04:07 Morphine Sulfate (*Crx) 2 Mg/Ml Inj IV PUSH Q4H PRN Pain Rated 7-10 Ondansetron HCl 4 mg 01/26/25 04:07 Ondansetron Inj 4 Mg/2 Ml Vial IV PUSH Q6H PRN Nausea And Vomiting Pantoprazole Sodium 40 mg 01/26/25 09:00 01/26/25 09:50 Pantoprazole Sodium Iv 40 Mg Vial IV PUSH 40 mg QAM FELA Administration Polyethylene Glycol 17 gm 01/26/25 17:00 Polyethylene Glycol 3350 17 Gm Powd.Pack PO BID [facility] Radiology Results: ITS Impressions Abdomen Ultrasound 01/26/25 08:28 IMPRESSION: 1. Choledocholithiasis with common duct dilatation. 2. Normal-sized gallbladder with gallstones, gallbladder wall thickening, and positive sonographic Iros sign, consistent with acute cholecystitis. MRCP 01/26/25 12:26 IMPRESSION: 1. Choledocholithiasis with mildly dilated common duct. 2. Cholelithiasis. Gallbladder wall thickening may be seen with acute or chronic cholecystitis. Labs Labs: Laboratory Results - last 24 hr 01/26/25 01/26/25 06:16 13:57 WBC 7.7 RBC 4.81 Hgb 14.1 Hct 43.4 MCV 90.2 MCH 29.3 MCHC 32.5 RDW 13.2 Plt Count 242 MPV 10.2 Immature Gran % (Auto) 0.4 Neut % (Auto) 63.1 Lymph % (Auto) 26.8 [place] % (Auto) 6.6 Eos % (Auto) 2.5 Baso % (Auto) 0.6 Lymph # (Auto) 2.07 [place] # (Auto) 0.5 Eos # (Auto) 0.2 Baso # (Auto) 0.1 Abs Immat Gran (auto) 0.03 Absolute Neuts (auto) 4.9 Absolute Nucleated RBC 0.000 Nucleated RBC % 0.0 Sodium 136 L Potassium 3.8 Chloride 103 Carbon Dioxide 24 Anion Gap 9 BUN 10 Creatinine 0.65 L Estim Creat Clear Calc 114 Estimated GFR > 60 Glucose 96 Calcium 9.2 Magnesium 1.7 Total Bilirubin 0.7 AST 91 H ALT 251 H Alkaline Phosphatase 147 H Total Protein 7.0 Albumin 3.9 TSH 2.270 Urine Color Yellow Urine Appearance Cloudy H Urine pH 6.0 Ur Specific [place] 1.034 Urine Protein Trace Urine Glucose (UA) Negative Urine Ketones Trace H Ur Blood (Man) Negative Urine Nitrate Positive Urine Bilirubin Negative Urine Urobilinogen 0.2 Ur Leukocyte Esterase 1+ H Urine RBC 0-2 Urine WBC 21-50 H Ur Squamous Epith Cells Occasional Urine Bacteria 4+ Urine Casts 0-2 Quality VTE Prophylaxis VTE prophylaxis: mechanical ordered
[2025-01-26] MEDS: polyethylene glycoL 3350 17 GM POWD.PACK PO (16:57)
[2025-01-26] MEDS: MORPHINE SULFATE (*CRX) 2 MG/ML INJ IV PUSH (23:19)
[2025-01-27] VITALS (12 sets, daily range): BP systolic 96–145; BP diastolic 54–95; PULSE 59–77; RESP 16–20; TEMP 36–36.6; O2SAT 97–100
--- NOTE | ~2025-01-27 | XR_ITS ---
EXAMINATION: XR ERCP DATE: 01/27/2025 11:49 INDICATION: Choledocholithiasis. TECHNIQUE: 4 spot fluoroscopic images of the right upper quadrant were obtained during endoscopic ret rograde cholangiopancreatography (ERCP). Fluoroscopy exposure time was 80 seconds. COMPARISON: CT abdomen and pelvis 01/25/2025 FINDINGS: The endoscope is in the second portion the duodenum. There is contrast opacification of the common duct. There are stones in the common duct. There is balloon sweeping of the common duct. IMPRESSION: 1. Choledocholithiasis. Please refer to the ERCP procedure note for additional details. Reviewed, dictated and finalized at location B.
--- NOTE | ~2025-01-27 | US_ITS ---
EXAMINATION: US abdomen limited DATE: 01/26/2025 08:25 INDICATION: Choledocholithiasis. TECHNIQUE: Multiple grayscale and Doppler ultrasound images of the abdomen were obtained. COMPARISON: CT abdomen and pelvis 01/25/2025 FINDINGS: The visualized portions of the head, body, and tail of the pancreas are normal. The liver i s normal without focal lesion. There is normal flow in main portal vein. The gallbladder is normal in size and contains gallstones. Gallbladder wall thickening is noted. There is a positive sonographic Rios sign. The common duct is dilated to 9 mm. There is a stone in the common duct. IMPRESSION: 1. Choledocholithiasis with common duct dilatation. 2. Normal-sized gallbladder with gallstones, gallbladder wall thickening, and positive sonographic Mu rphy sign, consistent with acute cholecystitis. Reviewed, dictated and finalized at location B. IMPRESSION: 1. Choledocholithiasis with common duct dilatation. 2. Normal-sized gallbladder with gallstones, gallbladder wall thickening, and p ositive sonographic Rios sign, consistent with acute cholecystitis.
--- NOTE | ~2025-01-27 | MR_ITS ---
EXAMINATION: MR MRCP wo/w con/w 3D wo ind DATE: 01/26/2025 12:26 INDICATION: Choledocholithiasis. TECHNIQUE: Magnetic resonance imaging (MRI) of the abdomen was performed without and with 20 mL ProHa nce intravenous contrast. Sequences included coronal T2-weighted FS FSE, coronal T2-weighted FSE, axi al T1-weighted LAVA, coronal FS FIESTA, axial dual-echo T1-weighted SPGR, coronal lava-FLEX, sagittal T2-weighted FSE, axial T2-weighted FSE, and axial DWI. Thick-slab T2-weighted FSE images were obtain ed for magnetic resonance cholangiopancreatography (MRCP). Maximum intensity projection 3-D reconstru ctions of the volumetric data were created by the technologist. Postcontrast sequences included coron al LAVA-flex and time course of axial T1-weighted LAVA. COMPARISON: CT abdomen and pelvis 01/25/2025 FINDINGS: ABDOMEN MRI: The liver is normal. There are gallstones in the gallbladder, which is normal in size. G allbladder wall thickening is noted. The spleen, pancreas, and adrenal glands are normal. There are c ysts in the kidneys measuring up to 8 mm on the right. There are no dilated loops of bowel. There are no pathologically enlarged lymph nodes. There is no free intraperitoneal fluid. ABDOMEN MRCP: The common duct is mildly dilated to 7 mm. There are stones in the common duct measurin g up to 5 mm. IMPRESSION: 1. Choledocholithiasis with mildly dilated common duct. 2. Cholelithiasis. Gallbladder wall thickening may be seen with acute or chronic cholecystitis. Reviewed, dictated and finalized at location B. IMPRESSION: 1. Choledocholithiasis with mildly dilated common duct. 2. Cholelithiasis. Gallbladder wall thickening may be seen with acute or chroni c cholecystitis.
--- NOTE | ~2025-01-27 | XR_ITS ---
XR chest 1V portable Ordering provider: Aurelio Whitlock MD History: 39 years Female with . Chest pain . Comparison: January 25, 2025 FINDINGS: MEDIASTINUM: The cardiac silhouette is not enlarged. Slightly congestive chacho. LUNGS: No effusions or pneumothorax. Bilateral interstitial thickening is seen suggestive of pneumonitis. Pulmonary edema cannot be exclud ed. OTHER: No definite free air under the diaphragm. Air seen under the left hemidiaphragm is most likely in the stomach. IMPRESSION: Bilateral interstitial thickening suggestive of pneumonitis versus pulmonary edema. Reviewed, dictated and finalized at location A. IMPRESSION: Bilateral interstitial thickening suggestive of pneumonitis versus pulmonary ed roby.
[2025-01-27] MEDS: SODIUM CHLORIDE 0.9% IV 1,000 ML 100 ML IV CONT ×3 (06:32→13:25)
[2025-01-27 06:35] LABS: Basophils Absolute Auto 0.1 K/mm3 (0.0-0.1); Basophils Percent Auto 0.7 % (0.2-1.2); Eosinophils Absolute Auto 0.2 K/mm3 (0-0.3); Eosinophils Percent Auto 2.3 % (0-4.4); Hematocrit 45.7 % (37.0-47.0); Hemoglobin 14.7 g/dL (12.0-15.0); Immature Granulocyte Absolute 0.04 K/mm3 (0.00-0.031); Immature Granulocyte Percent A 0.5 % (0-0.5); Lymphocytes Percent Auto 25.5 % (18.3-44.2); Mean Corpuscular HGB Conc 32.2 g/dl (32-36); Mean Corpuscular Hemoglobin 29.3 pg (26-34); Monocytes Absolute Auto 0.5 K/mm3 (0.1-0.6); Monocytes Percent Auto 6.3 % (2.6-8.5); Neutrophils Absolute Auto 4.8 K/mm3 (1.3-6.7); Neutrophils Percent Auto 64.7 % (45.5-73.1); Platelet Count Result 259 k/mm3 (150-375); Red Blood Count 5.02 M/mm3 (4.2-5.4); Red Cell Distribution Width 13.1 % (11.5-14.5); White Blood Count 7.4 K/mm3 (4.5-10.0)
[2025-01-27 06:43] LABS: Alanine Aminotransferase 190 U/L (6-35); Alkaline Phosphatase 135 U/L (38-126); Anion Gap 8 mmol/L (4-12); Aspartate Amino Transferase 58 U/L (14-36); Bilirubin,Total 0.7 mg/dL (0.2-1.3); Blood Urea Nitrogen 8 mg/dL (7-17); Calcium 8.9 mg/dL (8.4-10.2); Carbon Dioxide 23 mmol/L (22-30); Chloride 105 mmol/L (98-107); Estimated CRCL calculation 133 ml/min; Estimated Glomerular Filt Rate > 60; Glucose 94 mg/dL (65-110); Sodium 136 mmol/L (137-145)
[2025-01-27 07:23] LABS: Hepatitis B Surface Antigen Negative (Negative)
[2025-01-27 07:29] LABS: HAV RESULT Negative (Negative); Hepatitis B Core IgM Result Negative (Negative)
[2025-01-27 07:41] LABS: Hepatitis C Virus Antibody Negative (Negative)
--- NOTE | 2025-01-27 10:21 | P.PNGS_ITS ---
Progress Note: A&P Assessment and Plan (1) Choledocholithiasis: Code(s): K80.50 - Calculus of bile duct without cholangitis or cholecystitis without obstruction Status: Inactive Assessment and Plan: * Patient having ERCP today, will await results (2) Transaminitis: Code(s): R74.01 - Elevation of levels of liver transaminase levels Status: Acute Assessment and Plan: * AST, ALT, and alk-phos elevated and unchanged. ERCP today (3) Acute cholecystitis: Code(s): K81.0 - Acute cholecystitis Status: Acute Assessment and Plan: * ERCP today. Will recheck labs and re-evaluate her tomorrow to help determine timing of surgery. Will eventually need interval laparoscopic cholecystectomy, possibly during this hospitalization. (4) Amphetamine abuse, episodic: Code(s): F15.10 - Other stimulant abuse, uncomplicated Status: Acute (5) Constipation: Qualifiers: Constipation type: other constipation type Qualified Code(s): K59.09 - Other constipation Code(s): K59.00 - Constipation, unspecified Status: Acute (6) Nicotine addiction: Code(s): F17.200 - Nicotine dependence, unspecified, uncomplicated Status: Acute Plan I have discussed the patient's case and plan of care with Dr. Ortega. Subjective Subjective Date/Time Seen: 01/27/25 10:21 Patient reports: no new complaints, feels better and pain is less Interval history: Patient had some pain overnight requiring analgesics, but no abdominal pain today. No nausea. Going down for ERCP today. Exam Const: General: comfortable and no acute distress GI: Inspection: non-distended GI Palp: Yes Soft to palpation, No Tenderness to palpation present (GI) and No Guarding due to palpation present (GI) Auscultation: normal bowel sounds Objective Data Vital Signs Vital Signs: Vital Signs - 24 hr 01/26/25 12:00 01/26/25 16:00 01/26/25 20:00 Temperature 98.2 F 97.9 F 97.4 F L Pulse Rate 70 85 86 Respiratory Rate 20 18 16 Blood Pressure 105/72 106/53 L 112/67 Pulse Oximetry 95 98 100 01/26/25 23:26 01/27/25 03:25 01/27/25 08:00 Temperature 97.7 F 97.1 F L 97.7 F Pulse Rate 75 76 77 Respiratory Rate 20 16 16 Blood Pressure 119/76 121/66 96/57 L Pulse Oximetry 100 98 98 Intake/Output Intake/Output: Intake & Output 01/25/25 01/25/25 01/26/25 01/27/25 00:59 23:59 23:59 23:59 Intake Total 1500 245 Output Total 400 Balance 1100 245 Meds/Results Medications: Active Medications Generic Name Dose Route Start Last Admin Trade Name Freq PRN Reason Stop Dose Admin Acetaminophen 650 mg 01/26/25 04:07 Acetaminophen 325 Mg Tablet PO Q4H PRN Mild Pain (1-3) or Fever Hydrocodone Bitart/Acetaminophen 1 tab 01/26/25 04:07 01/26/25 13:38 Hydrocodone/Acetaminophen (*Crx) 5-325 Mg Tablet PO 1 tab Q4H PRN Administration Moderate Pain (4-6) Albuterol 1 puff 01/26/25 04:06 Albuterol Sulfate (*Sp) Aerosol 1 Puff INHALATION Q4-6H PRN shortness of breath Sodium Chloride 1,000 mls @ 100 mls/hr 01/26/25 04:10 01/27/25 08:59 Normal Saline Iv IV CONT 100 mls/hr .Q10H FELA Administration Morphine Sulfate 2 mg 01/26/25 04:07 01/26/25 23:19 Morphine Sulfate (*Crx) 2 Mg/Ml Inj IV PUSH 2 mg Q4H PRN Administration Pain Rated 7-10 Ondansetron HCl 4 mg 01/26/25 04:07 Ondansetron Inj 4 Mg/2 Ml Vial IV PUSH Q6H PRN Nausea And Vomiting Pantoprazole Sodium 40 mg 01/26/25 09:00 01/26/25 09:50 Pantoprazole Sodium Iv 40 Mg Vial IV PUSH 40 mg QAM FELA Administration Polyethylene Glycol 17 gm 01/26/25 17:00 01/26/25 16:57 Polyethylene Glycol 3350 17 Gm Powd.Pack PO 17 gm BID FELA Administration Radiology Results: ITS Impressions Abdomen Ultrasound 01/26/25 08:28 IMPRESSION: 1. Choledocholithiasis with common duct dilatation. 2. Normal-sized gallbladder with gallstones, gallbladder wall thickening, and positive sonographic Rios sign, consistent with acute cholecystitis. MRCP 01/26/25 12:26 IMPRESSION: 1. Choledocholithiasis with mildly dilated common duct. 2. Cholelithiasis. Gallbladder wall thickening may be seen with acute or chronic cholecystitis. Labs Labs: Laboratory Results - last 24 hr 01/26/25 01/27/25 13:57 06:26 WBC 7.4 RBC 5.02 Hgb 14.7 Hct 45.7 MCV 91.0 MCH 29.3 MCHC 32.2 RDW 13.1 Plt Count 259 MPV 10.0 Immature Gran % (Auto) 0.5 Neut % (Auto) 64.7 Lymph % (Auto) 25.5 [place] % (Auto) 6.3 Eos % (Auto) 2.3 Baso % (Auto) 0.7 Lymph # (Auto) 1.90 [place] # (Auto) 0.5 Eos # (Auto) 0.2 Baso # (Auto) 0.1 Abs Immat Gran (auto) 0.04 H Absolute Neuts (auto) 4.8 Absolute Nucleated RBC 0.000 Nucleated RBC % 0.0 Sodium 136 L Potassium 4.0 Chloride 105 Carbon Dioxide 23 Anion Gap 8 BUN 8 Creatinine 0.55 L Estim Creat Clear Calc 133 Estimated GFR > 60 Glucose 94 Calcium 8.9 Magnesium 2.0 Total Bilirubin 0.7 AST 58 H ALT 190 H Alkaline Phosphatase 135 H Total Protein 7.0 Albumin 4.0 Urine Color Yellow Urine Appearance Cloudy H Urine pH 6.0 Ur Specific [place] 1.034 Urine Protein Trace Urine Glucose (UA) Negative Urine Ketones Trace H Ur Blood (Man) Negative Urine Nitrate Positive Urine Bilirubin Negative Urine Urobilinogen 0.2 Ur Leukocyte Esterase 1+ H Urine RBC 0-2 Urine WBC 21-50 H Ur Squamous Epith Cells Occasional Urine Bacteria 4+ Urine Casts 0-2 Hepatitis A IgM Ab Negative Hep Bs Antigen Negative Hep B Core IgM Ab Negative Hepatitis C Ab Screen Negative
--- NOTE | 2025-01-27 10:29 | P.PNAN_ITS ---
Anes - Initial Pre Proc Eval Procedure: Operation Date: 01/27/25 12:00 Proposed Procedures p Endoscopic Retro Cholangiopancreatogram - Scottie Lui MD Date/Time: 01/27/25 10:29 Surgeon: Aurelio Whitlock MD Pre Op Diagnosis: Cholilithiasis obs bowel Patient Data Age: 39 Gender: F Height: 1.63 m Weight: 103.4 kg Last Vital Signs Temp 36.0 C L 01/27/25 10:26 Pulse 73 01/27/25 10:26 Resp 18 01/27/25 10:26 BP 138/84 01/27/25 10:26 Pulse Ox 99 01/27/25 10:26 O2 Del Method Room Air 01/27/25 10:26 Allergies Allergy/AdvReac Type Severity Reaction Status Date / Time No Known Allergies Allergy Unknown Verified 01/27/25 10:24 Home Medications ?Medication ?Instructions ?Recorded ?Confirmed ?Type albuterol sulfate 90 mcg/actuation 1 puff inhalation Q4-6H PRN 01/26/25 01/26/25 History aerosol inhaler shortness of breath meloxicam 15 mg tablet 15 mg PO DAILY 01/26/25 01/26/25 History Laboratory Tests 01/26/25 01/27/25 13:57 06:26 WBC 7.4 K/mm3 (4.5-10.0) RBC 5.02 M/mm3 (4.2-5.4) Hgb 14.7 g/dL (12.0-15.0) Hct 45.7 % (37.0-47.0) MCV 91.0 fl (80-100) MCH 29.3 pg (26-34) MCHC 32.2 g/dl (32-36) RDW 13.1 % (11.5-14.5) Plt Count 259 k/mm3 (150-375) MPV 10.0 fl (7.4-10.4) Immature Gran % (Auto) 0.5 % (0-0.5) Neut % (Auto) 64.7 % (45.5-73.1) Lymph % (Auto) 25.5 % (18.3-44.2) Tillman % (Auto) 6.3 % (2.6-8.5) Eos % (Auto) 2.3 % (0-4.4) Baso % (Auto) 0.7 % (0.2-1.2) Lymph # (Auto) 1.90 K/mm3 (0.9-3.2) Tillman # (Auto) 0.5 K/mm3 (0.1-0.6) Eos # (Auto) 0.2 K/mm3 (0-0.3) Baso # (Auto) 0.1 K/mm3 (0.0-0.1) Abs Immat Gran (auto) 0.04 H K/mm3 (0.00-0.031) Absolute Neuts (auto) 4.8 K/mm3 (1.3-6.7) Absolute Nucleated RBC 0.000 K/mm3 (0.0-0.012) Nucleated RBC % 0.0 % (0.0-0.2) Sodium 136 L mmol/L (137-145) Potassium 4.0 mmol/L (3.4-5.0) Chloride 105 mmol/L (98-107) Carbon Dioxide 23 mmol/L (22-30) Anion Gap 8 mmol/L (4-12) BUN 8 mg/dL (7-17) Creatinine 0.55 L mg/dL (0.7-1.0) Estim Creat Clear Calc 133 ml/min Estimated GFR > 60 (59 - ) Glucose 94 mg/dL (65-110) Calcium 8.9 mg/dL (8.4-10.2) Magnesium 2.0 mg/dL (1.6-2.3) Total Bilirubin 0.7 mg/dL (0.2-1.3) AST 58 H U/L (14-36) ALT 190 H U/L (6-35) Alkaline Phosphatase 135 H U/L (38-126) Total Protein 7.0 g/dL (6.3-8.2) Albumin 4.0 g/dL (3.5-5.1) Urine Color Yellow (Yellow) Urine Appearance Cloudy H (Clear) Urine pH 6.0 (5.0-9.0) Ur Specific [place] 1.034 (1.001-1.035) Urine Protein Trace mg/dL (Negative) Urine Glucose (UA) Negative mg/dL (Negative) Urine Ketones Trace H mg/dL (Negative) Ur Blood (Man) Negative (Negative) Urine Nitrate Positive (Negative) Urine Bilirubin Negative (Negative) Urine Urobilinogen 0.2 mg/dL (<2.0) Ur Leukocyte Esterase 1+ H LIZ/UL (Negative) Urine RBC 0-2 /hpf (0-2) Urine WBC 21-50 H /hpf (0-3) Ur Squamous Epith Cells Occasional /hpf (Few) Urine Bacteria 4+ /hpf Urine Casts 0-2 Hepatitis A IgM Ab Negative (Negative) Hep Bs Antigen Negative (Negative) Hep B Core IgM Ab Negative (Negative) Hepatitis C Ab Screen Negative (Negative) Patient hx anesthesia problems: none Family hx anesthesia problems: none Results Review: All pre-operative results and documents have been reviewed as part of the pre- operative evaluation. [facility] Past Medical History Medical History Amphetamine abuse, episodic DVT (deep venous thrombosis) Adult BMI > 30 (10/17/18) Dental caries Adult general medical examination Lumbar disc disease Bronchospasm Nicotine addiction Urolithiasis Recurrent bronchospasm Surgical History Surgical History History of partial hysterectomy History of Hx of lithotripsy History of ureter stent Social History Social History Years smoked: 5 Smoking status: Current every day smoker Second hand tobacco smoke exposure: No Additional smoking assessment comments: 3 cigarettes a day/7 years Alcohol intake: never Substance use: current Substance use type: marijuana and amphetamines Other substance usage details: Marijuana - daily, amphetamines intermittent (no use x 2-3 weeks) Do You Feel Safe in your Home?: Yes Lack of Transportation: No Lack of Food: Never True Current Housing: I Have Housing Concerned About Future Housing: No Difficulty Paying Gas/Electric Bills: No Difficulty Paying for Meds: No Currently Unemployed: No Education: High School Diploma/GED Difficulty w/ Childcare or Family Care: No Living arrangements: with family Additional living arrangements comments: MOM Spiritual care concerns: No Anes - Eval Final PreProcedure Day of Procedure 01/27/25 10:29 Patient weight: morbidly obese Heart: regular rate and rhythm Lungs: clear to auscultation Airway: Mallampati scale class II and special considerations poor dentition Neurological: alert and oriented Last oral intake: >/= 8 hours ASA classification: III Emergent: no Anesthetic plan: proceed Anesthesia type and monitoring: general ETT and standard monitoring Results Review: All pre-operative results and documents have been reviewed as part of the pre- operative evaluation. Informed Consent: The patient's anesthetic plan and its attendant risks and benefits were discussed with the patient/family/POA. Questions were solicited and answers provided to the satisfaction of the patient/family/POA.
[2025-01-27] MEDS: LACTATED RINGERS 1,000 ML 150 ML IV CONT (10:32)
[2025-01-27] MEDS: INDOMETHACIN 50 MG SUPP.RECT RECTAL (11:29)
[2025-01-27] MEDS: MORPHINE SULFATE (*CRX) 2 MG/ML INJ IV PUSH ×4 (12:28→17:37)
[2025-01-27] MEDS: HYDROcodone/acetaminophen (*CRX) 5-325 MG TABLET 1 TAB PO ×2 (13:21→20:30)
[2025-01-27] MEDS: PANTOPRAZOLE SODIUM IV 40 MG VIAL IV PUSH ×2 (13:22→17:25)
[2025-01-27] MEDS: polyethylene glycoL 3350 17 GM POWD.PACK PO (13:22)
--- NOTE | 2025-01-27 15:55 | P.PNIM_ITS ---
Progress Note: A&P Assessment and Plan (1) Choledocholithiasis: Code(s): K80.50 - Calculus of bile duct without cholangitis or cholecystitis without obstruction Status: Inactive Assessment and Plan: * CT of the abdomen and pelvis show hepatomegaly, choledocholithiasis, mild right inferior caliectasis and pelviectasis with urethral enhancement representing ascending infection, fecal loading in the transverse colon, mild transverse colon dilatation with an abrupt transition point at the hepatic flexure * NPO status * GI consulted * MRCP ordered * Ultrasound gallbladder ordered * Continue normal saline at 100 mL/hour for hydration (2) Transaminitis: Code(s): R74.01 - Elevation of levels of liver transaminase levels Status: Acute Assessment and Plan: Likely secondary to choledocholithiasis * Initial AST 102, ALT 307, alkaline phosphate 186 * Continue to trend (3) GERD (gastroesophageal reflux disease): Code(s): K21.9 - Gastro-esophageal reflux disease without esophagitis Status: Acute Assessment and Plan: * Protonix ordered Plan patient with abdomen pain, and CT scan showing Choleodocholithiasis seen by GI and had MRCP which also showed Choledocholithiasis with mildly dilated common duct patient will need ERCP to extract gallstones, Cholelithiasis. Gallbladder wall thickening may be seen with acute or chronic cholecystitis and Rios sign positive on US, seen by surgery service, patient will need a laparoscopic cholecystectomy possibly as outpatient, patient also c/o constipation GI has started miralax BID and will monitor and plan. today patient still c/o abdominal pain, no BM, denies any N/V, patient is scheduled for ERCP today , will follow up and plan. Subjective Date/time seen: 01/27/25 15:55 Interval history: Choleodocholithiasis H&P-Narrative: This is a 39-year-old female with a significant past medical history of DVT, kidney stones, current every day smoker, marijuana abuse, methamphetamine abuse who presented initially to [facility] with complaints of shortness of breath/dyspnea. She initially reported shortness of breath with burning in her chest with some numbness down bilateral arms. Patient states that she has had heartburn for the past 3 days. She denies any fever, chills, nausea, vomiting, diarrhea, abdominal pain, chest pain, shortness a breath at the time of my exam. The workup at [facility] included a chest x-ray which was negative. An abdomen/pelvis CT which shown hepatomegaly, choledocholithiasis, mild right inferior caliectasis and pelviectasis with urothelial enhancement representing ascending infection, fecal loading in the transverse colon, mild transverse colon dilation, with an abrupt transition point at the hepatic flexure. Initial labs showed a normal white blood cell count of 6.2, D-dimer 0.29, blood sugar 120, AST 102, ALT 307, alkaline phosphate 186, troponin was negative, amylase and lipase were within normal limits. EKG showed sinus rhythm with a rate of 72, QTC 404. patient with abdomen pain, and CT scan showing Choleodocholithiasis seen by GI and had MRCP which also showed Choledocholithiasis with mildly dilated common duct patient will need ERCP to extract gallstones, Cholelithiasis. Gallbladder wall thickening may be seen with acute or chronic cholecystitis and Rios sign positive on US, seen by surgery service, patient will need a laparoscopic cholecystectomy possibly as outpatient, patient also c/o constipation GI has started miralax BID and will monitor and plan. today patient still c/o abdominal pain, no BM, denies any N/V, patient is scheduled for ERCP, will follow up and plan. Review of Systems Review of Systems: All systems reviewed & are unremarkable except as noted in HPI and below Exam Narrative: Morbidly obese Patient is comfortable, NAD HEENT: eyes are clear and none icteric LUNGS:CTA HEART: RR S1S2 ABD: BS+, Soft and diffusely tender. Lower extremities: no edema SKIN: nonjaundiced Neuro: grossly intact. Objective Data Vital Signs Vital Signs: Vital Signs - 24 hr 01/26/25 16:00 01/26/25 20:00 01/26/25 23:26 Temperature 36.6 C 36.3 C L 36.5 C Pulse Rate 85 86 75 Respiratory Rate 18 16 20 Blood Pressure 106/53 L 112/67 119/76 Pulse Oximetry 98 100 100 Oxygen Delivery Oxygen Flow Rate 01/27/25 03:25 01/27/25 08:00 01/27/25 08:00 Temperature 36.2 C L 36.5 C Pulse Rate 76 77 59 L Respiratory Rate 16 16 18 Blood Pressure 121/66 96/57 L Pulse Oximetry 98 98 100 Oxygen Delivery Room Air Oxygen Flow Rate 01/27/25 10:26 01/27/25 12:01 01/27/25 12:11 Temperature 36.0 C L Pulse Rate 73 72 73 Respiratory Rate 18 18 18 Blood Pressure 138/84 104/55 L 108/68 Pulse Oximetry 99 100 97 Oxygen Delivery Room Air Simple Face Mask Room Air Oxygen Flow Rate 6 01/27/25 12:21 01/27/25 12:31 01/27/25 12:41 Temperature Pulse Rate 66 65 66 Respiratory Rate 18 20 20 Blood Pressure 133/88 145/90 H 141/95 H Pulse Oximetry 98 97 100 Oxygen Delivery Room Air Room Air Room Air Oxygen Flow Rate 01/27/25 12:51 01/27/25 13:01 Temperature Pulse Rate 64 59 L Respiratory Rate 19 18 Blood Pressure 138/90 140/77 Pulse Oximetry 100 100 Oxygen Delivery Room Air Room Air Oxygen Flow Rate Intake/Output Intake/Output: Intake & Output 01/25/25 01/25/25 01/26/25 01/27/25 00:59 23:59 23:59 23:59 Intake Total 1500 988.3 Output Total 400 Balance 1100 988.3 Meds/Results Medications: Active Medications Generic Name Dose Route Start Last Admin Trade Name Freq PRN Reason Stop Dose Admin Acetaminophen 650 mg 01/26/25 04:07 Acetaminophen 325 Mg Tablet PO Q4H PRN Mild Pain (1-3) or Fever Hydrocodone Bitart/Acetaminophen 1 tab 01/26/25 04:07 01/27/25 13:21 Hydrocodone/Acetaminophen (*Crx) 5-325 Mg Tablet PO 1 tab Q4H PRN Administration Moderate Pain (4-6) Albuterol 1 puff 01/26/25 04:06 Albuterol Sulfate (*Sp) Aerosol 1 Puff INHALATION Q4-6H PRN shortness of breath Sodium Chloride 1,000 mls @ 100 mls/hr 01/26/25 04:10 01/27/25 13:25 Normal Saline Iv IV CONT 100 mls/hr .Q10H FELA Administration Morphine Sulfate 2 mg 01/26/25 04:07 01/27/25 12:28 Morphine Sulfate (*Crx) 2 Mg/Ml Inj IV PUSH 2 mg Q4H PRN Administration Pain Rated 7-10 Ondansetron HCl 4 mg 01/26/25 04:07 Ondansetron Inj 4 Mg/2 Ml Vial IV PUSH Q6H PRN Nausea And Vomiting Pantoprazole Sodium 40 mg 01/26/25 09:00 01/27/25 13:22 Pantoprazole Sodium Iv 40 Mg Vial IV PUSH 40 mg QAM FELA Administration Polyethylene Glycol 17 gm 01/26/25 17:00 01/27/25 13:22 Polyethylene Glycol 3350 17 Gm Powd.Pack PO 17 gm BID FELA Administration Radiology Results: ITS Impressions Abdomen Ultrasound 01/26/25 08:28 IMPRESSION: 1. Choledocholithiasis with common duct dilatation. 2. Normal-sized gallbladder with gallstones, gallbladder wall thickening, and positive sonographic Rios sign, consistent with acute cholecystitis. MRCP 01/26/25 12:26 IMPRESSION: 1. Choledocholithiasis with mildly dilated common duct. 2. Cholelithiasis. Gallbladder wall thickening may be seen with acute or chronic cholecystitis. Endo Retro Cholangiopancreatogram 01/27/25 12:37 IMPRESSION: 1. Choledocholithiasis. Please refer to the ERCP procedure note for additional details. Labs Labs: Laboratory Results - last 24 hr 01/27/25 06:26 WBC 7.4 RBC 5.02 Hgb 14.7 Hct 45.7 MCV 91.0 MCH 29.3 MCHC 32.2 RDW 13.1 Plt Count 259 MPV 10.0 Immature Gran % (Auto) 0.5 Neut % (Auto) 64.7 Lymph % (Auto) 25.5 [place] % (Auto) 6.3 Eos % (Auto) 2.3 Baso % (Auto) 0.7 Lymph # (Auto) 1.90 [place] # (Auto) 0.5 Eos # (Auto) 0.2 Baso # (Auto) 0.1 Abs Immat Gran (auto) 0.04 H Absolute Neuts (auto) 4.8 Absolute Nucleated RBC 0.000 Nucleated RBC % 0.0 Sodium 136 L Potassium 4.0 Chloride 105 Carbon Dioxide 23 Anion Gap 8 BUN 8 Creatinine 0.55 L Estim Creat Clear Calc 133 Estimated GFR > 60 Glucose 94 Calcium 8.9 Magnesium 2.0 Total Bilirubin 0.7 AST 58 H ALT 190 H Alkaline Phosphatase 135 H Total Protein 7.0 Albumin 4.0 Hepatitis A IgM Ab Negative Hep Bs Antigen Negative Hep B Core IgM Ab Negative Hepatitis C Ab Screen Negative Quality VTE Prophylaxis VTE prophylaxis: mechanical ordered
[2025-01-27] MEDS: ONDANSETRON INJ 4 MG/2 ML VIAL IV PUSH (17:09)
--- NOTE | 2025-01-27 17:35 | ECG_ITS ---
Test Date: 2025-01-27 17:46:13 Measurements Intervals [place] Rate: 59 P: 10 [place]: 127 QRS: -15 QRSD: 80 T: 26 QT: 386 QTc: 383 Interpretive Statements SINUS BRADYCARDIA Compared to ECG 01/25/2025 19:09:41 Sinus rhythm no longer present Electronically Signed On 01-28-2025 13:57:40 CDT by Naldo Leija M.D.
[2025-01-27 17:52] LABS: Troponin I < 0.012 ng/mL (0.000-0.034)
--- NOTE | 2025-01-27 20:59 | PC.NURSE ---
per patient, it is okay to give information to her daughter Jackeline Wagner if she calls
[2025-01-28] VITALS (16 sets, daily range): BP systolic 96–174; BP diastolic 53–99; PULSE 56–77; RESP 14–20; TEMP 36–36.7; O2SAT 97–100
[2025-01-28 06:25] LABS: Basophils Percent Auto 0.3 % (0.2-1.2); Eosinophils Percent Auto 0.3 % (0-4.4); Hematocrit 43.4 % (37.0-47.0); Hemoglobin 14.2 g/dL (12.0-15.0); Immature Granulocyte Absolute 0.04 K/mm3 (0.00-0.031); Immature Granulocyte Percent A 0.4 % (0-0.5); Lymphocytes Absolute Auto 1.72 K/mm3 (0.9-3.2); Mean Corpuscular HGB Conc 32.7 g/dl (32-36); Mean Corpuscular Hemoglobin 29.6 pg (26-34); Mean Corpuscular Volume 90.6 fl (80-100); Mean Platelet Volume 10.2 fl (7.4-10.4); Monocytes Absolute Auto 0.5 K/mm3 (0.1-0.6); Neutrophils Absolute Auto 7.8 K/mm3 (1.3-6.7); Platelet Count Result 251 k/mm3 (150-375); Red Blood Count 4.79 M/mm3 (4.2-5.4); Red Cell Distribution Width 12.4 % (11.5-14.5); White Blood Count 10.1 K/mm3 (4.5-10.0)
[2025-01-28 06:43] LABS: Alanine Aminotransferase 144 U/L (6-35); Albumin Level 3.9 g/dL (3.5-5.1); Alkaline Phosphatase 135 U/L (38-126); Anion Gap 11 mmol/L (4-12); Aspartate Amino Transferase 43 U/L (14-36); Bilirubin,Total 0.6 mg/dL (0.2-1.3); Blood Urea Nitrogen 6 mg/dL (7-17); Calcium 9.2 mg/dL (8.4-10.2); Carbon Dioxide 22 mmol/L (22-30); Chloride 105 mmol/L (98-107); Estimated CRCL calculation 127 ml/min; Estimated Glomerular Filt Rate > 60; Glucose 98 mg/dL (65-110); Magnesium 1.9 mg/dL (1.6-2.3); Sodium 138 mmol/L (137-145)
[2025-01-28] MEDS: PANTOPRAZOLE SODIUM IV 40 MG VIAL IV PUSH (09:57)
--- NOTE | 2025-01-28 13:02 | WPDHPUPDATE1 ---
History and Physical Update Update Date/Time: 01/28/25 13:02 History and Physical has been reviewed, including an updated exam of the patient. There are NO changes in the patient's condition. Risks, benefits, and alternatives have been discussed and questions answered. Patient agrees to proceed with procedure.
--- NOTE | 2025-01-28 14:13 | PM.IMPN ---
Progress Note: A&P Assessment and Plan (1) Choledocholithiasis: Code(s): K80.50 - Calculus of bile duct without cholangitis or cholecystitis without obstruction Status: Inactive Assessment and Plan: CT of the abdomen and pelvis show hepatomegaly, choledocholithiasis, mild right inferior caliectasis and pelviectasis with urethral enhancement representing ascending infection, fecal loading in the transverse colon, mild transverse colon dilatation with an abrupt transition point at the hepatic flexure NPO status GI consulted MRCP ordered Ultrasound gallbladder ordered Continue normal saline at 100 mL/hour for hydration (2) Transaminitis: Code(s): R74.01 - Elevation of levels of liver transaminase levels Status: Acute Assessment and Plan: Likely secondary to choledocholithiasis Initial AST 102, ALT 307, alkaline phosphate 186 Continue to trend (3) GERD (gastroesophageal reflux disease): Code(s): K21.9 - Gastro-esophageal reflux disease without esophagitis Status: Acute Assessment and Plan: Protonix ordered Plan patient with abdomen pain, and CT scan showing Choleodocholithiasis seen by GI and had MRCP which also showed Choledocholithiasis with mildly dilated common duct patient will need ERCP to extract gallstones, Cholelithiasis. Gallbladder wall thickening may be seen with acute or chronic cholecystitis and Rios sign positive on US, seen by surgery service, patient will need a laparoscopic cholecystectomy possibly as outpatient, patient also c/o constipation GI has started miralax BID and will monitor and plan. today patient still c/o abdominal pain, no BM, denies any N/V, patient had ERCP on 01/27 and gallstone were extracted from CBD, feeling little better today, patient is scheduled for cholecystectomy today, will monitor will follow up and plan. Subjective Date/time seen: 01/28/25 14:13 Interval history: Choleodocholithiasis H&P-Narrative: This is a 39-year-old female with a significant past medical history of DVT, kidney stones, current every day smoker, marijuana abuse, methamphetamine abuse who presented initially to [facility] Emergency Room with complaints of shortness of breath/dyspnea. She initially reported shortness of breath with burning in her chest with some numbness down bilateral arms. Patient states that she has had heartburn for the past 3 days. She denies any fever, chills, nausea, vomiting, diarrhea, abdominal pain, chest pain, shortness a breath at the time of my exam. The workup at [facility] included a chest x-ray which was negative. An abdomen/pelvis CT which shown hepatomegaly, choledocholithiasis, mild right inferior caliectasis and pelviectasis with urothelial enhancement representing ascending infection, fecal loading in the transverse colon, mild transverse colon dilation, with an abrupt transition point at the hepatic flexure. Initial labs showed a normal white blood cell count of 6.2, D-dimer 0.29, blood sugar 120, AST 102, ALT 307, alkaline phosphate 186, troponin was negative, amylase and lipase were within normal limits. EKG showed sinus rhythm with a rate of 72, QTC 404. patient with abdomen pain, and CT scan showing Choleodocholithiasis seen by GI and had MRCP which also showed Choledocholithiasis with mildly dilated common duct patient will need ERCP to extract gallstones, Cholelithiasis. Gallbladder wall thickening may be seen with acute or chronic cholecystitis and Rios sign positive on US, seen by surgery service, patient will need a laparoscopic cholecystectomy possibly as outpatient, patient also c/o constipation GI has started miralax BID and will monitor and plan. today patient still c/o abdominal pain, no BM, denies any N/V, patient had ERCP on 01/27 and gallstone were extracted from CBD, feeling little better today, patient is scheduled for cholecystectomy today, will monitor will follow up and plan. Review of Systems Review of Systems: All systems reviewed & are unremarkable except as noted in HPI and below Exam Narrative: Morbidly obese Patient is comfortable, NAD HEENT: eyes are clear and none icteric LUNGS:CTA HEART: RR S1S2 ABD: BS+, Soft and diffusely tender. Lower extremities: no edema SKIN: nonjaundiced Neuro: grossly intact. Objective Data Vital Signs Vital Signs: Vital Signs - 24 hr 01/27/25 16:00 01/27/25 20:00 01/27/25 20:00 Temperature 36.3 C L 36.6 C Pulse Rate 70 61 Respiratory Rate 18 20 Blood Pressure 128/75 114/54 L Pulse Oximetry 98 100 Oxygen Delivery Room Air 01/28/25 00:00 01/28/25 04:00 01/28/25 08:00 Temperature 36.2 C L 36.2 C L 36.4 C Pulse Rate 56 L 62 77 Respiratory Rate 20 16 16 Blood Pressure 96/53 L 128/63 123/55 L Pulse Oximetry 100 98 100 Oxygen Delivery 01/28/25 08:00 Temperature Pulse Rate Respiratory Rate Blood Pressure Pulse Oximetry Oxygen Delivery Room Air Intake/Output Intake/Output: Intake & Output 01/25/25 01/26/25 01/27/25 01/28/25 23:59 23:59 23:59 23:59 Intake Total 1500 1778.3 50 Output Total 400 Balance 1100 1778.3 50 Meds/Results Medications: Active Medications Generic Name Dose Route Start Last Admin Trade Name Freq PRN Reason Stop Dose Admin Acetaminophen 650 mg 01/26/25 04:07 Acetaminophen 325 Mg Tablet PO Q4H PRN Mild Pain (1-3) or Fever Hydrocodone Bitart/Acetaminophen 1 tab 01/26/25 04:07 01/27/25 20:30 Hydrocodone/Acetaminophen (*Crx) 5-325 Mg Tablet PO 1 tab Q4H PRN Administration Moderate Pain (4-6) Albuterol 1 puff 01/26/25 04:06 Albuterol Sulfate (*Sp) Aerosol 1 Puff INHALATION Q4-6H PRN shortness of breath Ceftriaxone Sodium 1 gm in 50 mls @ 100 mls/hr 01/27/25 19:00 01/27/25 19:37 Rocephin 1 Gm/Ns 50 Ml IVPB Infused Q24H [facility] Infusion Metronidazole 500 mg 01/28/25 14:00 Metronidazole 500 Mg Tablet PO Q8HR [facility] Morphine Sulfate 2 mg 01/26/25 04:07 01/27/25 17:09 Morphine Sulfate (*Crx) 2 Mg/Ml Inj IV PUSH 2 mg Q4H PRN Administration Pain Rated 7-10 Ondansetron HCl 4 mg 01/26/25 04:07 01/27/25 17:09 Ondansetron Inj 4 Mg/2 Ml Vial IV PUSH 4 mg Q6H PRN Administration Nausea And Vomiting Pantoprazole Sodium 40 mg 01/26/25 09:00 01/28/25 09:57 Pantoprazole Sodium Iv 40 Mg Vial IV PUSH 40 mg QAM FELA Administration Polyethylene Glycol 17 gm 01/26/25 17:00 01/28/25 09:43 Polyethylene Glycol 3350 17 Gm Powd.Pack PO Not Given BID [facility] Radiology Results: ITS Impressions Abdomen Ultrasound 01/26/25 08:28 IMPRESSION: 1. Choledocholithiasis with common duct dilatation. 2. Normal-sized gallbladder with gallstones, gallbladder wall thickening, and positive sonographic Rios sign, consistent with acute cholecystitis. MRCP 01/26/25 12:26 IMPRESSION: 1. Choledocholithiasis with mildly dilated common duct. 2. Cholelithiasis. Gallbladder wall thickening may be seen with acute or chronic cholecystitis. Endo Retro Cholangiopancreatogram 01/27/25 12:37 IMPRESSION: 1. Choledocholithiasis. Please refer to the ERCP procedure note for additional details. Chest X-Ray 01/27/25 17:35 IMPRESSION: Bilateral interstitial thickening suggestive of pneumonitis versus pulmonary edema. Labs Labs: Laboratory Results - last 24 hr 01/27/25 01/28/25 17:24 06:06 WBC 10.1 H RBC 4.79 Hgb 14.2 Hct 43.4 MCV 90.6 MCH 29.6 MCHC 32.7 RDW 12.4 Plt Count 251 MPV 10.2 Immature Gran % (Auto) 0.4 Neut % (Auto) 77.0 H Lymph % (Auto) 17.0 L [place] % (Auto) 5.0 Eos % (Auto) 0.3 Baso % (Auto) 0.3 Lymph # (Auto) 1.72 [place] # (Auto) 0.5 Eos # (Auto) 0.0 Baso # (Auto) 0.0 Abs Immat Gran (auto) 0.04 H Absolute Neuts (auto) 7.8 H Absolute Nucleated RBC 0.000 Nucleated RBC % 0.0 Sodium 138 Potassium 4.0 Chloride 105 Carbon Dioxide 22 Anion Gap 11 BUN 6 L Creatinine 0.58 L Estim Creat Clear Calc 127 Estimated GFR > 60 Glucose 98 Calcium 9.2 Magnesium 1.9 Total Bilirubin 0.6 AST 43 H ALT 144 H Alkaline Phosphatase 135 H Troponin I < 0.012 Total Protein 7.0 Albumin 3.9 Quality VTE Prophylaxis VTE prophylaxis: mechanical ordered
--- NOTE | 2025-01-28 14:55 | P.PNAN_ITS ---
Anes - Eval Final PreProcedure Day of Procedure 01/28/25 14:55 Patient weight: obese Heart: regular rate and rhythm Lungs: clear to auscultation Airway: Mallampati scale class II and special considerations poor dentition Neurological: alert and oriented Last oral intake: >/= 8 hours ASA classification: III Emergent: no Anesthetic plan: proceed Anesthesia type and monitoring: general ETT and standard monitoring Results Review: All pre-operative results and documents have been reviewed as part of the pre- operative evaluation. Informed Consent: The patient's anesthetic plan and its attendant risks and benefits were discussed with the patient/family/POA. Questions were solicited and answers provided to the satisfaction of the patient/family/POA.
[2025-01-28] MEDS: ceFAZolin 2 GM/D5W 50 ML 2 GM/50 ML BAG IVPB (15:14)
[2025-01-28] MEDS: BUPIVACAINE/EPINEPHRINE 0.5% 50 ML VIAL 30 ML INFILTRATE (15:38)
[2025-01-28] MEDS: LACTATED RINGERS 1,000 ML 30 ML IV CONT ×2 (16:03)
--- NOTE | 2025-01-28 16:06 | P.OP_ITS ---
Procedure Note - Detailed Date of Procedure 01/28/25 Pre-op Diagnosis Cholelithiasis with choledocholithiasis Post-op Diagnosis Same Procedure Performed Laparoscopic cholecystectomy Surgeon Dangelo Ortega, DO Anesthesia General and Local (0.5% bupivacaine) Indications A 39-year-old woman who presented to [facility] with upper abdominal pain. Imaging showed evidence of choledocholithiasis. She was transferred to [facility] for further treatment. She underwent ERCP with stone extraction yesterday. Discussions were made with the patient about treatment options and decision was made to proceed with laparoscopic cholecystectomy, possible open. Findings Laparoscopic cholecystectomy was performed. The gallbladder had a few pericholecystic adhesions and appeared slightly dilated. There was no evidence of acute cholecystitis. The cystic duct appeared normal in size. No other significant intra-abdominal findings were noted. The gallbladder was removed and sent to the lab for pathology. Description of Procedure Procedure as well as risks, benefits, and alternatives were discussed with patient. Written consent was obtained and placed in chart prior to procedure. The patient was brought back to surgical suite. Patient was placed in supine position on operating table. Time-out was done to confirm patient and procedure. Patient was then intubated by the anesthesia department. Abdomen was prepped and draped in sterile fashion using chlorhexidine prep. 0.5% bupivacaine with epinephrine was infiltrated at each site of incision. A 5 millimeter incision was made near the umbilicus, and a 5 millimeter Optiview trocar was advanced through the abdominal layers under direct visualization. Once inside the abdominal cavity, carbon dioxide was insufflated to create a pneumoperitoneum. The camera was inserted and the abdomen was inspected. No immediate abnormalities were identified. The patient was placed in reverse Trendelenburg position and rotated slightly to the left. An 11 millimeter incision was made in the subxiphoid region, and an 11 millimeter trocar was inserted under direct visualization. Two 5 millimeter incisions were made in the right upper quadrant, and two 5 millimeter trocars were inserted under direct visualization. The gallbladder was identified and grasped at the fundus and retracted superiorly. It was then grasped at the infundibulum retracted laterally. Careful dissection around the neck of the gallbladder was performed using blunt dissection with a [place] grasper and hook electrocautery. The cystic duct was identified, and a window was created behind it. The cystic artery was also identified and a window was created behind it. The critical view of safety was identified, visualizing the cystic duct running directly into the neck of the gallbladder, and the cystic artery running directly into the wall of the gallbladder. A 5 millimeter clip magician/illusionist was then used to place 2 clips proximally and 1 clip distally on both the cystic duct and cystic artery. They were then both transected using endoscopic scissors. Once safely away from the charissa hepatitis, the gallbladder was dissected free from the liver bed using hook electrocautery. Hemostasis was achieved along the way. The gallbladder was removed completely and then removed through the subxiphoid port. The liver bed was then inspected. Hemostasis appeared adequate, and our clips appeared secure. The area was gently irrigated with sterile saline. No other abnormalities were seen. The patient was flattened out in bed, and 1 final inspection was made around the abdominal cavity. The subxiphoid port was removed, and a Nirav Dottie cone was used to approximate the fascia with an 0-Vicryl simple interrupted suture. The remaining ports were then removed under direct visualization, the camera was removed, and the pneumoperitoneum was released. The skin of the incisions was approximated using 4-0 Monocryl subcuticular sutures. Exofin glue was applied on top. The patient was then awakened from anesthesia, extubated, and transferred to recovery. Estimated Blood Loss 5 Urine Output 400 Pathology Yes (Gallbladder) Complications No immediate complications Condition Stable Disposition Floor [facility] Billing Surgery - Charge Forward: Surgery Billing
--- NOTE | 2025-01-28 16:14 | P.PNGI_ITS ---
Progress Note: A&P Assessment and Plan (1) Choledocholithiasis with cholecystitis: Code(s): K80.40 - Calculus of bile duct with cholecystitis, unspecified, without obstruction Status: Acute Assessment and Plan: treated with erpc yesterday and today for lap dana management per surgery team will follow as needed (2) Elevated LFTs: Code(s): R79.89 - Other specified abnormal findings of blood chemistry Status: Acute (3) Amphetamine abuse, episodic: Code(s): F15.10 - Other stimulant abuse, uncomplicated Status: Acute (4) Constipation: Qualifiers: Constipation type: other constipation type Qualified Code(s): K59.09 - Other constipation Code(s): K59.00 - Constipation, unspecified Status: Acute Subjective Date/time seen: 01/28/25 12:14 Interval history: s/p ercp yesterday with successful removal of stones today OR for lap dana Review of Systems Review of Systems: All systems reviewed & are unremarkable except as noted in HPI and below Exam Const: General: comfortable and no acute distress HENMT: Face/Nose/Sinus: Normal nares present Eyes: General: appearance normal, both eyes and all related structures Neck: Neck: no JVD Resp: Auscultation: clear to auscultation bilaterally Cardio: Rate: regular rate Rhythm: regular rhythm GI: Inspection: non-distended GI Palp: Yes Soft to palpation Skin: General skin exam: normal color Neuro: Speech: normal speech Extrem: General: normal to inspection Psych: Mental Status: mental status grossly normal Objective Data Vital Signs Vital Signs: Vital Signs - 24 hr 01/27/25 20:00 01/27/25 20:00 01/28/25 00:00 Temperature 97.9 F 97.1 F L Pulse Rate 61 56 L Respiratory Rate 20 20 Blood Pressure 114/54 L 96/53 L Pulse Oximetry 100 100 Oxygen Delivery Room Air Oxygen Flow Rate 01/28/25 04:00 01/28/25 08:00 01/28/25 08:00 Temperature 97.1 F L 97.6 F Pulse Rate 62 77 Respiratory Rate 16 16 Blood Pressure 128/63 123/55 L Pulse Oximetry 98 100 Oxygen Delivery Room Air Oxygen Flow Rate 01/28/25 12:00 01/28/25 14:42 01/28/25 16:11 Temperature 97.1 F L 97 F L Pulse Rate 66 72 Respiratory Rate 16 18 Blood Pressure 126/72 126/75 Pulse Oximetry 98 100 100 Oxygen Delivery Room Air Simple Face Mask Oxygen Flow Rate 8 Intake/Output Intake/Output: Intake & Output 01/25/25 01/26/25 01/27/25 01/28/25 23:59 23:59 23:59 23:59 Intake Total 1500 1778.3 100 Output Total 400 400 Balance 1100 1778.3 -300 Meds/Results Medications: Active Medications Generic Name Dose Route Start Last Admin Trade Name Freq PRN Reason Stop Dose Admin Acetaminophen 650 mg 01/26/25 04:07 Acetaminophen 325 Mg Tablet PO Q4H PRN Mild Pain (1-3) or Fever Hydrocodone Bitart/Acetaminophen 1 tab 01/26/25 04:07 01/27/25 20:30 Hydrocodone/Acetaminophen (*Crx) 5-325 Mg Tablet PO 1 tab Q4H PRN Administration Moderate Pain (4-6) Albuterol 1 puff 01/26/25 04:06 Albuterol Sulfate (*Sp) Aerosol 1 Puff INHALATION Q4-6H PRN shortness of breath Fentanyl Citrate 25 mcg 01/28/25 14:55 Fentanyl Citrate Inj (*Crx) 100 Mcg/2 Ml Vial IV PUSH Q2M PRN Pain Ceftriaxone Sodium 1 gm in 50 mls @ 100 mls/hr 01/27/25 19:00 01/27/25 19:37 Rocephin 1 Gm/Ns 50 Ml IVPB Infused Q24H [facility] Infusion Lactated Ringer's 1,000 mls @ 30 mls/hr 01/28/25 14:55 Lr - Lactated Ringers Iv IV CONT .Q24H [facility]ELA Lactated Ringer's 1,000 mls @ 30 mls/hr 01/28/25 14:55 Lr - Lactated Ringers Iv IV CONT .Q24H [facility] Metronidazole 500 mg 01/28/25 14:00 Metronidazole 500 Mg Tablet PO Q8HR [facility] Morphine Sulfate 2 mg 01/26/25 04:07 01/27/25 17:09 Morphine Sulfate (*Crx) 2 Mg/Ml Inj IV PUSH 2 mg Q4H PRN Administration Pain Rated 7-10 Ondansetron HCl 4 mg 01/26/25 04:07 01/27/25 17:09 Ondansetron Inj 4 Mg/2 Ml Vial IV PUSH 4 mg Q6H PRN Administration Nausea And Vomiting Ondansetron HCl 4 mg 01/28/25 14:55 Ondansetron Inj 4 Mg/2 Ml Vial IV PUSH ONCE PRN Nausea Pantoprazole Sodium 40 mg 01/26/25 09:00 01/28/25 09:57 Pantoprazole Sodium Iv 40 Mg Vial IV PUSH 40 mg QAM FELA Administration Polyethylene Glycol 17 gm 01/26/25 17:00 01/28/25 09:43 Polyethylene Glycol 3350 17 Gm Powd.Pack PO Not Given BID [facility] Radiology Results: ITS Impressions Abdomen Ultrasound 01/26/25 08:28 IMPRESSION: 1. Choledocholithiasis with common duct dilatation. 2. Normal-sized gallbladder with gallstones, gallbladder wall thickening, and positive sonographic Rios sign, consistent with acute cholecystitis. MRCP 01/26/25 12:26 IMPRESSION: 1. Choledocholithiasis with mildly dilated common duct. 2. Cholelithiasis. Gallbladder wall thickening may be seen with acute or chronic cholecystitis. Endo Retro Cholangiopancreatogram 01/27/25 12:37 IMPRESSION: 1. Choledocholithiasis. Please refer to the ERCP procedure note for additional details. Chest X-Ray 01/27/25 17:35 IMPRESSION: Bilateral interstitial thickening suggestive of pneumonitis versus pulmonary edema. Labs Labs: Laboratory Results - last 24 hr 01/27/25 01/28/25 17:24 06:06 WBC 10.1 H RBC 4.79 Hgb 14.2 Hct 43.4 MCV 90.6 MCH 29.6 MCHC 32.7 RDW 12.4 Plt Count 251 MPV 10.2 Immature Gran % (Auto) 0.4 Neut % (Auto) 77.0 H Lymph % (Auto) 17.0 L [place] % (Auto) 5.0 Eos % (Auto) 0.3 Baso % (Auto) 0.3 Lymph # (Auto) 1.72 [place] # (Auto) 0.5 Eos # (Auto) 0.0 Baso # (Auto) 0.0 Abs Immat Gran (auto) 0.04 H Absolute Neuts (auto) 7.8 H Absolute Nucleated RBC 0.000 Nucleated RBC % 0.0 Sodium 138 Potassium 4.0 Chloride 105 Carbon Dioxide 22 Anion Gap 11 BUN 6 L Creatinine 0.58 L Estim Creat Clear Calc 127 Estimated GFR > 60 Glucose 98 Calcium 9.2 Magnesium 1.9 Total Bilirubin 0.6 AST 43 H ALT 144 H Alkaline Phosphatase 135 H Troponin I < 0.012 Total Protein 7.0 Albumin 3.9
[2025-01-28] MEDS: fentaNYL CITRATE INJ (*CRX) 100 MCG/2 ML VIAL 25 MCG IV PUSH ×4 (16:30→16:45)
[2025-01-28] MEDS: LACTATED RINGERS 1,000 ML 100 ML IV CONT (18:41)
[2025-01-28] MEDS: MORPHINE SULFATE (*CRX) 4 MG/ML INJ IV PUSH (20:09)
[2025-01-28] MEDS: metroNIDAZOLE 500 MG TABLET PO (20:40)
[2025-01-28] MEDS: ALPRAZolam (*CRX) 0.25 MG TABLET PO (21:13)
[2025-01-29 00:40] VITALS: PULSE 80; RESP 16; TEMP 36.6; O2SAT 100
[2025-01-29] MEDS: HYDROcodone/acetaminophen (*CRX) 7.5-325 MG TABLET 1 TAB PO ×4 (04:13→17:01)
[2025-01-29 05:00] VITALS: BP 120/68; PULSE 54; RESP 18; TEMP 36.5; O2SAT 100
[2025-01-29] MEDS: MORPHINE SULFATE (*CRX) 4 MG/ML INJ IV PUSH ×2 (05:11→22:03)
[2025-01-29] MEDS: metroNIDAZOLE 500 MG TABLET PO (05:11)
[2025-01-29] MEDS: PANTOPRAZOLE SODIUM IV 40 MG VIAL IV PUSH (07:59)
--- NOTE | 2025-01-29 08:39 | PM.PNGS ---
Progress Note: A&P Assessment and Plan (1) Choledocholithiasis: Code(s): K80.50 - Calculus of bile duct without cholangitis or cholecystitis without obstruction Status: Inactive Assessment and Plan: Doing well on POD#1. Home when pain adequately controlled. Maintain low fat diet for 2 weeks. Follow up with me in office in 2 weeks. (2) Transaminitis: Code(s): R74.01 - Elevation of levels of liver transaminase levels Status: Acute Assessment and Plan: improving after ERCP (3) Amphetamine abuse, episodic: Code(s): F15.10 - Other stimulant abuse, uncomplicated Status: Acute (4) Constipation: Qualifiers: Constipation type: other constipation type Qualified Code(s): K59.09 - Other constipation Code(s): K59.00 - Constipation, unspecified Status: Acute (5) Nicotine addiction: Code(s): F17.200 - Nicotine dependence, unspecified, uncomplicated Status: Acute Subjective Subjective Date/Time Seen: 01/29/25 08:39 Interval history: Having pain this AM but mostly at epigastric incision. Up walking in halls. Exam GI: Inspection: non-distended and incision (intact with glue) GI Palp: Yes Soft to palpation and Yes Tenderness to palpation present (GI) (at epigastric incision) Objective Data Vital Signs Vital Signs: Vital Signs - 24 hr 01/28/25 12:00 01/28/25 14:42 01/28/25 16:03 Temperature 97.1 F L 97 F L 97.1 F L Pulse Rate 66 72 60 Respiratory Rate 16 18 18 Blood Pressure 126/72 126/75 174/99 H Pulse Oximetry 98 100 100 Oxygen Delivery Room Air Simple Face Mask Oxygen Flow Rate 8 01/28/25 16:11 01/28/25 16:15 01/28/25 16:30 Temperature Pulse Rate 64 66 Respiratory Rate 16 20 Blood Pressure 160/82 H 148/88 H Pulse Oximetry 100 100 100 Oxygen Delivery Simple Face Mask Simple Face Mask Room Air Oxygen Flow Rate 8 8 01/28/25 16:45 01/28/25 17:00 01/28/25 17:10 Temperature Pulse Rate 73 70 70 Respiratory Rate 16 14 14 Blood Pressure 146/85 H 138/83 136/77 Pulse Oximetry 98 100 97 Oxygen Delivery Room Air Room Air Room Air Oxygen Flow Rate 01/28/25 17:30 01/28/25 17:45 01/28/25 18:15 Temperature 97.9 F 98.1 F 98 F Pulse Rate 67 68 65 Respiratory Rate 20 18 18 Blood Pressure 130/85 132/80 127/72 Pulse Oximetry 99 100 99 Oxygen Delivery Oxygen Flow Rate 01/28/25 20:00 01/28/25 21:00 01/29/25 00:40 Temperature 96.8 F L 97.8 F Pulse Rate 72 80 Respiratory Rate 20 16 Blood Pressure 126/61 Pulse Oximetry 100 100 Oxygen Delivery Room Air Oxygen Flow Rate 01/29/25 05:00 Temperature 97.7 F Pulse Rate 54 L Respiratory Rate 18 Blood Pressure 120/68 Pulse Oximetry 100 Oxygen Delivery Oxygen Flow Rate Intake/Output Intake/Output: Intake & Output 01/26/25 01/27/25 01/28/25 01/29/25 23:59 23:59 23:59 23:59 Intake Total 1500 1778.3 600 380 Output Total 400 400 Balance 1100 1778.3 200 380 Meds/Results Medications: Active Medications Generic Name Dose Route Start Last Admin Trade Name Freq PRN Reason Stop Dose Admin Acetaminophen 500 mg 01/28/25 17:14 Acetaminophen 500 Mg Tablet PO Q6H PRN Pain Rated 1-3 Hydrocodone Bitart/Acetaminophen 1 tab 01/28/25 17:14 Hydrocodone/Acetaminophen (*Crx) 5-325 Mg Tablet PO Q4H PRN Pain Rated 4-6 Hydrocodone Bitart/Acetaminophen 1 tab 01/28/25 17:14 01/29/25 07:58 Hydrocodone/Acetaminophen (*Crx) 7.5-325 Mg Tablet PO 1 tab Q4H PRN Administration Pain Rated 7-10 Albuterol 1 puff 01/26/25 04:06 Albuterol Sulfate (*Sp) Aerosol 1 Puff INHALATION Q4-6H PRN shortness of breath Ceftriaxone Sodium 1 gm in 50 mls @ 100 mls/hr 01/27/25 19:00 01/28/25 18:10 Rocephin 1 Gm/Ns 50 Ml IVPB 100 mls/hr Q24H [facility] Administration Metronidazole 500 mg 01/28/25 14:00 01/29/25 05:11 Metronidazole 500 Mg Tablet PO 500 mg Q8HR [facility] Administration Morphine Sulfate 2 mg 01/28/25 17:14 Morphine Sulfate (*Crx) 2 Mg/Ml Inj IV PUSH Q2H PRN Breakthrough Pain Rated 4-6 or NPO Morphine Sulfate 4 mg 01/28/25 17:14 01/29/25 05:11 Morphine Sulfate (*Crx) 4 Mg/Ml Inj IV PUSH 4 mg Q2H PRN Administration Breakthrough Pain Rated 7-10 or NPO Ondansetron HCl 4 mg 01/26/25 04:07 01/27/25 17:09 Ondansetron Inj 4 Mg/2 Ml Vial IV PUSH 4 mg Q6H PRN Administration Nausea And Vomiting Pantoprazole Sodium 40 mg 01/26/25 09:00 01/29/25 07:59 Pantoprazole Sodium Iv 40 Mg Vial IV PUSH 40 mg QAM FELA Administration Polyethylene Glycol 17 gm 01/26/25 17:00 01/29/25 08:09 Polyethylene Glycol 3350 17 Gm Powd.Pack PO Not Given BID [facility] Radiology Results: ITS Impressions Abdomen Ultrasound 01/26/25 08:28 IMPRESSION: 1. Choledocholithiasis with common duct dilatation. 2. Normal-sized gallbladder with gallstones, gallbladder wall thickening, and positive sonographic Rios sign, consistent with acute cholecystitis. MRCP 01/26/25 12:26 IMPRESSION: 1. Choledocholithiasis with mildly dilated common duct. 2. Cholelithiasis. Gallbladder wall thickening may be seen with acute or chronic cholecystitis. Endo Retro Cholangiopancreatogram 01/27/25 12:37 IMPRESSION: 1. Choledocholithiasis. Please refer to the ERCP procedure note for additional details. Chest X-Ray 01/27/25 17:35 IMPRESSION: Bilateral interstitial thickening suggestive of pneumonitis versus pulmonary edema.
[2025-01-29 11:00] VITALS: BP 107/59; PULSE 69; RESP 22; TEMP 36.4; O2SAT 100
[2025-01-29 11:16] LABS: Basophils Absolute Auto 0.1 K/mm3 (0.0-0.1); Basophils Percent Auto 0.4 % (0.2-1.2); Eosinophils Absolute Auto 0.1 K/mm3 (0-0.3); Eosinophils Percent Auto 0.4 % (0-4.4); Hematocrit 46.5 % (37.0-47.0); Hemoglobin 14.6 g/dL (12.0-15.0); Immature Granulocyte Absolute 0.08 K/mm3 (0.00-0.031); Immature Granulocyte Percent A 0.7 % (0-0.5); Lymphocytes Absolute Auto 2.09 K/mm3 (0.9-3.2); Mean Corpuscular HGB Conc 31.4 g/dl (32-36); Mean Corpuscular Hemoglobin 29.3 pg (26-34); Mean Corpuscular Volume 93.4 fl (80-100); Mean Platelet Volume 10.8 fl (7.4-10.4); Monocytes Absolute Auto 0.7 K/mm3 (0.1-0.6); Monocytes Percent Auto 5.6 % (2.6-8.5); Neutrophils Absolute Auto 8.7 K/mm3 (1.3-6.7); Neutrophils Percent Auto 74.9 % (45.5-73.1); Platelet Count Result 260 k/mm3 (150-375); Red Blood Count 4.98 M/mm3 (4.2-5.4); Red Cell Distribution Width 12.7 % (11.5-14.5); White Blood Count 11.6 K/mm3 (4.5-10.0)
[2025-01-29 11:25] LABS: Alanine Aminotransferase 96 U/L (6-35); Albumin Level 4.1 g/dL (3.5-5.1); Alkaline Phosphatase 96 U/L (38-126); Anion Gap 11 mmol/L (4-12); Aspartate Amino Transferase 38 U/L (14-36); Bilirubin,Total 0.5 mg/dL (0.2-1.3); Blood Urea Nitrogen 7 mg/dL (7-17); Carbon Dioxide 22 mmol/L (22-30); Chloride 104 mmol/L (98-107); Estimated CRCL calculation 123 ml/min; Estimated Glomerular Filt Rate > 60; Glucose 126 mg/dL (65-110); Magnesium 1.7 mg/dL (1.6-2.3); Potassium 3.6 mmol/L (3.4-5.0); Sodium 137 mmol/L (137-145)
[2025-01-29 14:39] VITALS: BP 95/45; PULSE 84; RESP 20; O2SAT 100
[2025-01-29] MEDS: AMOXICILLIN/CLAVULANATE K 875-125 MG TAB 1 TABLET PO ×2 (15:46→20:37)
--- NOTE | 2025-01-29 16:56 | P.PNIM_ITS ---
Progress Note: A&P Assessment and Plan (1) Choledocholithiasis: Code(s): K80.50 - Calculus of bile duct without cholangitis or cholecystitis without obstruction Status: Inactive Assessment and Plan: * CT of the abdomen and pelvis show hepatomegaly, choledocholithiasis, mild right inferior caliectasis and pelviectasis with urethral enhancement representing ascending infection, fecal loading in the transverse colon, mild transverse colon dilatation with an abrupt transition point at the hepatic flexure * NPO status * GI consulted * MRCP ordered * Ultrasound gallbladder ordered * Continue normal saline at 100 mL/hour for hydration (2) Transaminitis: Code(s): R74.01 - Elevation of levels of liver transaminase levels Status: Acute Assessment and Plan: Likely secondary to choledocholithiasis * Initial AST 102, ALT 307, alkaline phosphate 186 * Continue to trend (3) GERD (gastroesophageal reflux disease): Code(s): K21.9 - Gastro-esophageal reflux disease without esophagitis Status: Acute Assessment and Plan: * Protonix ordered Plan patient with abdomen pain, and CT scan showing Choleodocholithiasis seen by GI and had MRCP which also showed Choledocholithiasis with mildly dilated common duct patient will need ERCP to extract gallstones, Cholelithiasis. Gallbladder wall thickening may be seen with acute or chronic cholecystitis and Rios sign positive on US, seen by surgery service, patient will need a laparoscopic cholecystectomy possibly as outpatient, patient also c/o constipation GI has started miralax BID and will monitor and plan. today patient still c/o abdominal pain, no BM, denies any N/V, patient had ERCP on 01/27 and gallstone were extracted from CBD, feeling little better today, patient had cholecystectomy on 01/28 POD# 1, patient is trying to eat but complaints of abdomen pain, will monitor will follow up once patient is able to tolerate PO and pain is control, will discharge patient, and plan. Subjective Date/time seen: 01/29/25 16:56 Interval history: Choleodocholithiasis H&P-Narrative: This is a 39-year-old female with a significant past medical history of DVT, kidney stones, current every day smoker, marijuana abuse, methamphetamine abuse who presented initially to [facility] with complaints of shortness of breath/dyspnea. She initially reported shortness of breath with burning in her chest with some numbness down bilateral arms. Patient states that she has had heartburn for the past 3 days. She denies any fever, chills, nausea, vomiting, diarrhea, abdominal pain, chest pain, shortness a breath at the time of my exam. The workup at [facility] included a chest x-ray which was negative. An abdomen/pelvis CT which shown hepatomegaly, choledocholithiasis, mild right inferior caliectasis and pelviectasis with urothelial enhancement representing ascending infection, fecal loading in the transverse colon, mild transverse colon dilation, with an abrupt transition point at the hepatic flexure. Initial labs showed a normal white blood cell count of 6.2, D-dimer 0.29, blood sugar 120, AST 102, ALT 307, alkaline phosphate 186, troponin was negative, amylase and lipase were within normal limits. EKG showed sinus rhythm with a rate of 72, QTC 404. patient with abdomen pain, and CT scan showing Choleodocholithiasis seen by GI and had MRCP which also showed Choledocholithiasis with mildly dilated common duct patient will need ERCP to extract gallstones, Cholelithiasis. Gallbladder wall thickening may be seen with acute or chronic cholecystitis and Rios sign positive on US, seen by surgery service, patient will need a laparoscopic cholecystectomy possibly as outpatient, patient also c/o constipation GI has started miralax BID and will monitor and plan. today patient still c/o abdominal pain, no BM, denies any N/V, patient had ERCP on 01/27 and gallstone were extracted from CBD, feeling little better today, patient had cholecystectomy on 01/28 POD# 1, patient is trying to eat but complaints of abdomen pain, will monitor will follow up once patient is able to tolerate PO and pain is control, will discharge patient, and plan. Review of Systems Review of Systems: All systems reviewed & are unremarkable except as noted in HPI and below Exam Narrative: Morbidly obese Patient is comfortable, NAD HEENT: eyes are clear and none icteric LUNGS:CTA HEART: RR S1S2 ABD: BS+, Soft and diffusely tender. Lower extremities: no edema SKIN: nonjaundiced Neuro: grossly intact. Objective Data Vital Signs Vital Signs: Vital Signs - 24 hr 01/28/25 17:00 01/28/25 17:10 01/28/25 17:30 Temperature 36.6 C Pulse Rate 70 70 67 Respiratory Rate 14 14 20 Blood Pressure 138/83 136/77 130/85 Pulse Oximetry 100 97 99 Oxygen Delivery Room Air Room Air 01/28/25 17:45 01/28/25 18:15 01/28/25 20:00 Temperature 36.7 C 36.6 C Pulse Rate 68 65 Respiratory Rate 18 18 Blood Pressure 132/80 127/72 Pulse Oximetry 100 99 Oxygen Delivery Room Air 01/28/25 21:00 01/29/25 00:40 01/29/25 05:00 Temperature 36.0 C L 36.6 C 36.5 C Pulse Rate 72 80 54 L Respiratory Rate 20 16 18 Blood Pressure 126/61 120/68 Pulse Oximetry 100 100 100 Oxygen Delivery 01/29/25 08:00 01/29/25 11:00 01/29/25 14:39 Temperature 36.4 C Pulse Rate 69 84 Respiratory Rate 22 H 20 Blood Pressure 107/59 L 95/45 L Pulse Oximetry 100 100 Oxygen Delivery Room Air Intake/Output Intake/Output: Intake & Output 01/26/25 01/27/25 01/28/25 01/29/25 23:59 23:59 23:59 23:59 Intake Total 1500 1778.3 600 860 Output Total 400 400 Balance 1100 1778.3 200 860 Meds/Results Medications: Active Medications Generic Name Dose Route Start Last Admin Trade Name Freq PRN Reason Stop Dose Admin Acetaminophen 500 mg 01/28/25 17:14 Acetaminophen 500 Mg Tablet PO Q6H PRN Pain Rated 1-3 Hydrocodone Bitart/Acetaminophen 1 tab 01/28/25 17:14 Hydrocodone/Acetaminophen (*Crx) 5-325 Mg Tablet PO Q4H PRN Pain Rated 4-6 Hydrocodone Bitart/Acetaminophen 1 tab 01/28/25 17:14 01/29/25 12:22 Hydrocodone/Acetaminophen (*Crx) 7.5-325 Mg Tablet PO 1 tab Q4H PRN Administration Pain Rated 7-10 Albuterol 1 puff 01/26/25 04:06 Albuterol Sulfate (*Sp) Aerosol 1 Puff INHALATION Q4-6H PRN shortness of breath Amoxicillin/Clavulanate Potassium 1 tablet 01/29/25 13:00 01/29/25 15:46 Amoxicillin/Clavulanate K 875-125 Mg Tab PO 02/02/25 21:01 1 tablet Q12HR FELA Administration Morphine Sulfate 2 mg 01/28/25 17:14 Morphine Sulfate (*Crx) 2 Mg/Ml Inj IV PUSH Q2H PRN Breakthrough Pain Rated 4-6 or NPO Morphine Sulfate 4 mg 01/28/25 17:14 01/29/25 05:11 Morphine Sulfate (*Crx) 4 Mg/Ml Inj IV PUSH 4 mg Q2H PRN Administration Breakthrough Pain Rated 7-10 or NPO Ondansetron HCl 4 mg 01/26/25 04:07 01/27/25 17:09 Ondansetron Inj 4 Mg/2 Ml Vial IV PUSH 4 mg Q6H PRN Administration Nausea And Vomiting Pantoprazole Sodium 40 mg 01/26/25 09:00 01/29/25 07:59 Pantoprazole Sodium Iv 40 Mg Vial IV PUSH 40 mg QAM FELA Administration Polyethylene Glycol 17 gm 01/26/25 17:00 01/29/25 16:25 Polyethylene Glycol 3350 17 Gm Powd.Pack PO Not Given BID FELA Radiology Results: ITS Impressions Abdomen Ultrasound 01/26/25 08:28 IMPRESSION: 1. Choledocholithiasis with common duct dilatation. 2. Normal-sized gallbladder with gallstones, gallbladder wall thickening, and positive sonographic Rios sign, consistent with acute cholecystitis. MRCP 01/26/25 12:26 IMPRESSION: 1. Choledocholithiasis with mildly dilated common duct. 2. Cholelithiasis. Gallbladder wall thickening may be seen with acute or chronic cholecystitis. Endo Retro Cholangiopancreatogram 01/27/25 12:37 IMPRESSION: 1. Choledocholithiasis. Please refer to the ERCP procedure note for additional details. Chest X-Ray 01/27/25 17:35 IMPRESSION: Bilateral interstitial thickening suggestive of pneumonitis versus pulmonary edema. Labs Labs: Laboratory Results - last 24 hr 01/29/25 10:54 WBC 11.6 H RBC 4.98 Hgb 14.6 Hct 46.5 MCV 93.4 MCH 29.3 MCHC 31.4 L RDW 12.7 Plt Count 260 MPV 10.8 H Immature Gran % (Auto) 0.7 H Neut % (Auto) 74.9 H Lymph % (Auto) 18.0 L [place] % (Auto) 5.6 Eos % (Auto) 0.4 Baso % (Auto) 0.4 Lymph # (Auto) 2.09 [place] # (Auto) 0.7 H Eos # (Auto) 0.1 Baso # (Auto) 0.1 Abs Immat Gran (auto) 0.08 H Absolute Neuts (auto) 8.7 H Absolute Nucleated RBC 0.000 Nucleated RBC % 0.0 Sodium 137 Potassium 3.6 Chloride 104 Carbon Dioxide 22 Anion Gap 11 BUN 7 Creatinine 0.60 L Estim Creat Clear Calc 123 Estimated GFR > 60 Glucose 126 H Calcium 9.0 Magnesium 1.7 Total Bilirubin 0.5 AST 38 H ALT 96 H Alkaline Phosphatase 96 Total Protein 7.0 Albumin 4.1 Quality VTE Prophylaxis VTE prophylaxis: mechanical ordered
[2025-01-29 17:20] VITALS: BP 109/66; PULSE 72; O2SAT 100
[2025-01-29 20:32] VITALS: BP 121/71; PULSE 67; RESP 24; TEMP 36.4; O2SAT 100
[2025-01-29] MEDS: HYDROcodone/acetaminophen (*CRX) 5-325 MG TABLET 1 TAB PO (20:37)
[2025-01-30 03:44] VITALS: BP 128/84; PULSE 70; RESP 14; TEMP 36.6; O2SAT 99
[2025-01-30 07:22] LABS: Basophils Absolute Auto 0.1 K/mm3 (0.0-0.1); Basophils Percent Auto 0.8 % (0.2-1.2); Eosinophils Absolute Auto 0.2 K/mm3 (0-0.3); Hematocrit 48.6 % (37.0-47.0); Hemoglobin 13.9 g/dL (12.0-15.0); Immature Granulocyte Absolute 0.03 K/mm3 (0.00-0.031); Immature Granulocyte Percent A 0.4 % (0-0.5); Lymphocytes Percent Auto 26.8 % (18.3-44.2); Mean Corpuscular HGB Conc 28.6 g/dl (32-36); Mean Corpuscular Volume 101.5 fl (80-100); Mean Platelet Volume 10.2 fl (7.4-10.4); Monocytes Absolute Auto 0.5 K/mm3 (0.1-0.6); Monocytes Percent Auto 6.3 % (2.6-8.5); Neutrophils Absolute Auto 4.7 K/mm3 (1.3-6.7); Neutrophils Percent Auto 62.7 % (45.5-73.1); Platelet Count Result 186 k/mm3 (150-375); Red Blood Count 4.79 M/mm3 (4.2-5.4); Red Cell Distribution Width 12.7 % (11.5-14.5); White Blood Count 7.5 K/mm3 (4.5-10.0)
[2025-01-30 07:32] LABS: Alanine Aminotransferase 74 U/L (6-35); Albumin Level 3.6 g/dL (3.5-5.1); Alkaline Phosphatase 96 U/L (38-126); Anion Gap 7 mmol/L (4-12); Aspartate Amino Transferase 25 U/L (14-36); Bilirubin,Total 0.4 mg/dL (0.2-1.3); Blood Urea Nitrogen 8 mg/dL (7-17); Calcium 8.7 mg/dL (8.4-10.2); Carbon Dioxide 26 mmol/L (22-30); Chloride 106 mmol/L (98-107); Estimated CRCL calculation 133 ml/min; Estimated Glomerular Filt Rate > 60; Glucose 82 mg/dL (65-110); Magnesium 1.7 mg/dL (1.6-2.3); Potassium 3.8 mmol/L (3.4-5.0); Sodium 139 mmol/L (137-145)
[2025-01-30] MEDS: AMOXICILLIN/CLAVULANATE K 875-125 MG TAB 1 TABLET PO ×2 (08:02→21:35)
[2025-01-30] MEDS: HYDROcodone/acetaminophen (*CRX) 7.5-325 MG TABLET 1 TAB PO ×4 (08:02→21:34)
[2025-01-30] MEDS: PANTOPRAZOLE SODIUM IV 40 MG VIAL IV PUSH (08:02)
[2025-01-30] MEDS: polyethylene glycoL 3350 17 GM POWD.PACK PO (08:05)
--- NOTE | 2025-01-30 13:50 | P.PNIM_ITS ---
Progress Note: A&P Assessment and Plan (1) Choledocholithiasis: Code(s): K80.50 - Calculus of bile duct without cholangitis or cholecystitis without obstruction Status: Inactive Assessment and Plan: * CT of the abdomen and pelvis show hepatomegaly, choledocholithiasis, mild right inferior caliectasis and pelviectasis with urethral enhancement representing ascending infection, fecal loading in the transverse colon, mild transverse colon dilatation with an abrupt transition point at the hepatic flexure * NPO status * GI consulted * MRCP ordered * Ultrasound gallbladder ordered * Continue normal saline at 100 mL/hour for hydration (2) Transaminitis: Code(s): R74.01 - Elevation of levels of liver transaminase levels Status: Acute Assessment and Plan: Likely secondary to choledocholithiasis * Initial AST 102, ALT 307, alkaline phosphate 186 * Continue to trend (3) GERD (gastroesophageal reflux disease): Code(s): K21.9 - Gastro-esophageal reflux disease without esophagitis Status: Acute Assessment and Plan: * Protonix ordered Plan patient with abdomen pain, and CT scan showing Choleodocholithiasis seen by GI and had MRCP which also showed Choledocholithiasis with mildly dilated common duct patient will need ERCP to extract gallstones, Cholelithiasis. Gallbladder wall thickening may be seen with acute or chronic cholecystitis and Rios sign positive on US, seen by surgery service, patient will need a laparoscopic cholecystectomy possibly as outpatient, patient also c/o constipation GI has started miralax BID and will monitor and plan. today patient still c/o abdominal pain, no BM, denies any N/V, patient had ERCP on 01/27 and gallstone were extracted from CBD, feeling little better today, patient had cholecystectomy on 01/28 POD# 2, patient still complaints of abdomen pain, will monitor will follow up once patient is able to tolerate PO and pain is control, will discharge patient, and plan. Subjective Date/time seen: 01/30/25 13:50 Interval history: Choleodocholithiasis H&P-Narrative: This is a 39-year-old female with a significant past medical history of DVT, kidney stones, current every day smoker, marijuana abuse, methamphetamine abuse who presented initially to [facility] Emergency Room with complaints of shortness of breath/dyspnea. She initially reported shortness of breath with burning in her chest with some numbness down bilateral arms. Patient states that she has had heartburn for the past 3 days. She denies any fever, chills, nausea, vomiting, diarrhea, abdominal pain, chest pain, shortness a breath at the time of my exam. The workup at [facility] included a chest x-ray which was negative. An abdomen/pelvis CT which shown hepatomegaly, choledocholithiasis, mild right inferior caliectasis and pelviectasis with urothelial enhancement representing ascending infection, fecal loading in the transverse colon, mild transverse colon dilation, with an abrupt transition point at the hepatic flexure. Initial labs showed a normal white blood cell count of 6.2, D-dimer 0.29, blood sugar 120, AST 102, ALT 307, alkaline phosphate 186, troponin was negative, amylase and lipase were within normal limits. EKG showed sinus rhythm with a rate of 72, QTC 404. patient with abdomen pain, and CT scan showing Choleodocholithiasis seen by GI and had MRCP which also showed Choledocholithiasis with mildly dilated common duct patient will need ERCP to extract gallstones, Cholelithiasis. Gallbladder wall thickening may be seen with acute or chronic cholecystitis and Rios sign positive on US, seen by surgery service, patient will need a laparoscopic cholecystectomy possibly as outpatient, patient also c/o constipation GI has started miralax BID and will monitor and plan. today patient still c/o abdominal pain, no BM, denies any N/V, patient had ERCP on 01/27 and gallstone were extracted from CBD, feeling little better today, patient had cholecystectomy on 01/28 POD# 2, patient still complaints of abdomen pain, will monitor will follow up once patient is able to tolerate PO and pain is control, will discharge patient, and plan. Review of Systems Review of Systems: All systems reviewed & are unremarkable except as noted in HPI and below Objective Data Vital Signs Vital Signs: Vital Signs - 24 hr 01/29/25 14:39 01/29/25 17:20 01/29/25 20:00 Temperature Pulse Rate 84 72 Respiratory Rate 20 Blood Pressure 95/45 L 109/66 Pulse Oximetry 100 100 Oxygen Delivery Room Air 01/29/25 20:32 01/30/25 03:44 Temperature 36.4 C 36.6 C Pulse Rate 67 70 Respiratory Rate 24 H 14 Blood Pressure 121/71 128/84 Pulse Oximetry 100 99 Oxygen Delivery Intake/Output Intake/Output: Intake & Output 01/27/25 01/28/25 01/29/25 01/30/25 23:59 23:59 23:59 23:59 Intake Total 1778.3 600 1890 790 Output Total 400 Balance 1778.3 200 1890 790 Meds/Results Medications: Active Medications Generic Name Dose Route Start Last Admin Trade Name Freq PRN Reason Stop Dose Admin Acetaminophen 500 mg 01/28/25 17:14 Acetaminophen 500 Mg Tablet PO Q6H PRN Pain Rated 1-3 Hydrocodone Bitart/Acetaminophen 1 tab 01/28/25 17:14 01/29/25 20:37 Hydrocodone/Acetaminophen (*Crx) 5-325 Mg Tablet PO 1 tab Q4H PRN Administration Pain Rated 4-6 Hydrocodone Bitart/Acetaminophen 1 tab 01/28/25 17:14 01/30/25 12:15 Hydrocodone/Acetaminophen (*Crx) 7.5-325 Mg Tablet PO 1 tab Q4H PRN Administration Pain Rated 7-10 Albuterol 1 puff 01/26/25 04:06 Albuterol Sulfate (*Sp) Aerosol 1 Puff INHALATION Q4-6H PRN shortness of breath Amoxicillin/Clavulanate Potassium 1 tablet 01/29/25 13:00 01/30/25 08:02 Amoxicillin/Clavulanate K 875-125 Mg Tab PO 02/02/25 21:01 1 tablet Q12HR FELA Administration Morphine Sulfate 2 mg 01/28/25 17:14 Morphine Sulfate (*Crx) 2 Mg/Ml Inj IV PUSH Q2H PRN Breakthrough Pain Rated 4-6 or NPO Morphine Sulfate 4 mg 01/28/25 17:14 01/29/25 22:03 Morphine Sulfate (*Crx) 4 Mg/Ml Inj IV PUSH 4 mg Q2H PRN Administration Breakthrough Pain Rated 7-10 or NPO Ondansetron HCl 4 mg 01/26/25 04:07 01/27/25 17:09 Ondansetron Inj 4 Mg/2 Ml Vial IV PUSH 4 mg Q6H PRN Administration Nausea And Vomiting Pantoprazole Sodium 40 mg 01/26/25 09:00 01/30/25 08:02 Pantoprazole Sodium Iv 40 Mg Vial IV PUSH 40 mg QAM FELA Administration Polyethylene Glycol 17 gm 01/26/25 17:00 01/30/25 08:05 Polyethylene Glycol 3350 17 Gm Powd.Pack PO 17 gm BID FELA Administration Radiology Results: ITS Impressions Abdomen Ultrasound 01/26/25 08:28 IMPRESSION: 1. Choledocholithiasis with common duct dilatation. 2. Normal-sized gallbladder with gallstones, gallbladder wall thickening, and positive sonographic Rios sign, consistent with acute cholecystitis. MRCP 01/26/25 12:26 IMPRESSION: 1. Choledocholithiasis with mildly dilated common duct. 2. Cholelithiasis. Gallbladder wall thickening may be seen with acute or chronic cholecystitis. Endo Retro Cholangiopancreatogram 01/27/25 12:37 IMPRESSION: 1. Choledocholithiasis. Please refer to the ERCP procedure note for additional details. Chest X-Ray 01/27/25 17:35 IMPRESSION: Bilateral interstitial thickening suggestive of pneumonitis versus pulmonary edema. Labs Labs: Laboratory Results - last 24 hr 01/30/25 07:01 WBC 7.5 RBC 4.79 Hgb 13.9 Hct 48.6 H MCV 101.5 H D MCH 29.0 MCHC 28.6 L RDW 12.7 Plt Count 186 MPV 10.2 Immature Gran % (Auto) 0.4 Neut % (Auto) 62.7 Lymph % (Auto) 26.8 [place] % (Auto) 6.3 Eos % (Auto) 3.0 Baso % (Auto) 0.8 Lymph # (Auto) 2.00 [place] # (Auto) 0.5 Eos # (Auto) 0.2 Baso # (Auto) 0.1 Abs Immat Gran (auto) 0.03 Absolute Neuts (auto) 4.7 Absolute Nucleated RBC 0.000 Nucleated RBC % 0.0 Sodium 139 Potassium 3.8 Chloride 106 Carbon Dioxide 26 Anion Gap 7 BUN 8 Creatinine 0.55 L Estim Creat Clear Calc 133 Estimated GFR > 60 Glucose 82 Calcium 8.7 Magnesium 1.7 Total Bilirubin 0.4 AST 25 ALT 74 H Alkaline Phosphatase 96 Total Protein 7.0 Albumin 3.6 Quality VTE Prophylaxis VTE prophylaxis: mechanical ordered
[2025-01-30 14:00] VITALS: BP 119/71; PULSE 62; RESP 20; TEMP 36.4; O2SAT 98
[2025-01-30 21:16] VITALS: BP 137/79; PULSE 80; RESP 16; TEMP 36.5; O2SAT 99
[2025-01-31] MEDS: HYDROcodone/acetaminophen (*CRX) 7.5-325 MG TABLET 1 TAB PO ×2 (04:39→09:41)
[2025-01-31 05:23] VITALS: BP 120/69; PULSE 72; RESP 16; TEMP 36.4; O2SAT 99
[2025-01-31 06:04] LABS: Basophils Percent Auto 0.4 % (0.2-1.2); Eosinophils Absolute Auto 0.4 K/mm3 (0-0.3); Eosinophils Percent Auto 6.4 % (0-4.4); Hematocrit 41.1 % (37.0-47.0); Hemoglobin 13.6 g/dL (12.0-15.0); Immature Granulocyte Absolute 0.03 K/mm3 (0.00-0.031); Immature Granulocyte Percent A 0.4 % (0-0.5); Lymphocytes Absolute Auto 1.87 K/mm3 (0.9-3.2); Lymphocytes Percent Auto 27.8 % (18.3-44.2); Mean Corpuscular HGB Conc 33.1 g/dl (32-36); Mean Corpuscular Hemoglobin 29.8 pg (26-34); Mean Corpuscular Volume 90.1 fl (80-100); Mean Platelet Volume 10.1 fl (7.4-10.4); Monocytes Absolute Auto 0.5 K/mm3 (0.1-0.6); Monocytes Percent Auto 7.1 % (2.6-8.5); Neutrophils Absolute Auto 3.9 K/mm3 (1.3-6.7); Neutrophils Percent Auto 57.9 % (45.5-73.1); Platelet Count Result 231 k/mm3 (150-375); Red Blood Count 4.56 M/mm3 (4.2-5.4); Red Cell Distribution Width 12.9 % (11.5-14.5); White Blood Count 6.7 K/mm3 (4.5-10.0)
[2025-01-31 06:14] LABS: Alanine Aminotransferase 56 U/L (6-35); Albumin Level 3.5 g/dL (3.5-5.1); Alkaline Phosphatase 82 U/L (38-126); Anion Gap 7 mmol/L (4-12); Aspartate Amino Transferase 22 U/L (14-36); Bilirubin,Total 0.4 mg/dL (0.2-1.3); Blood Urea Nitrogen 6 mg/dL (7-17); Calcium 9.1 mg/dL (8.4-10.2); Carbon Dioxide 27 mmol/L (22-30); Chloride 103 mmol/L (98-107); Estimated CRCL calculation 129 ml/min; Estimated Glomerular Filt Rate > 60; Glucose 90 mg/dL (65-110); Magnesium 1.7 mg/dL (1.6-2.3); Potassium 3.9 mmol/L (3.4-5.0); Sodium 137 mmol/L (137-145)
[2025-01-31] MEDS: polyethylene glycoL 3350 17 GM POWD.PACK PO (09:41)
[2025-01-31] MEDS: AMOXICILLIN/CLAVULANATE K 875-125 MG TAB 1 TABLET PO (09:41)
[2025-01-31] MEDS: PANTOPRAZOLE SODIUM IV 40 MG VIAL IV PUSH (09:51)
--- NOTE | 2025-01-31 10:34 | P.DS_ITS ---
DS: Admitting Diagnosis Discharge Date 01/31/25 Admitting Diagnosis Choleodocholithiasis DS: Discharge Diagnosis Discharge Diagnosis (1) Choledocholithiasis: Code(s): K80.50 - Calculus of bile duct without cholangitis or cholecystitis without obstruction Status: Inactive Assessment and Plan: * CT of the abdomen and pelvis show hepatomegaly, choledocholithiasis, mild right inferior caliectasis and pelviectasis with urethral enhancement representing ascending infection, fecal loading in the transverse colon, mild transverse colon dilatation with an abrupt transition point at the hepatic flexure * NPO status * GI consulted * MRCP ordered * Ultrasound gallbladder ordered * Continue normal saline at 100 mL/hour for hydration (2) Transaminitis: Code(s): R74.01 - Elevation of levels of liver transaminase levels Status: Acute Assessment and Plan: Likely secondary to choledocholithiasis * Initial AST 102, ALT 307, alkaline phosphate 186 * Continue to trend (3) GERD (gastroesophageal reflux disease): Code(s): K21.9 - Gastro-esophageal reflux disease without esophagitis Status: Acute Assessment and Plan: * Protonix ordered Plan patient with abdomen pain, and CT scan showing Choleodocholithiasis seen by GI and had MRCP which also showed Choledocholithiasis with mildly dilated common duct patient will need ERCP to extract gallstones, Cholelithiasis. Gallbladder wall thickening may be seen with acute or chronic cholecystitis and Rios sign positive on US, seen by surgery service, patient will need a laparoscopic cholecystectomy possibly as outpatient, patient also c/o constipation GI has started miralax BID and will monitor and plan. today patient still c/o abdominal pain, no BM, denies any N/V, patient had ERCP on 01/27 and gallstone were extracted from CBD, feeling little better today, patient had cholecystectomy on 01/28 POD# 2, patient still complaints of abdomen pain, will monitor will follow up once patient is able to tolerate PO and pain is control, will discharge patient, and plan. DS: Summary Hospital Course Hospital Course: patient with abdomen pain, and CT scan showing Choleodocholithiasis seen by GI and had MRCP which also showed Choledocholithiasis with mildly dilated common duct patient will need ERCP to extract gallstones, Cholelithiasis. Gallbladder wall thickening may be seen with acute or chronic cholecystitis and Rios sign positive on US, seen by surgery service, patient will need a laparoscopic cholecystectomy possibly as outpatient, patient also c/o constipation GI has started miralax BID and will monitor and plan. today patient still c/o abdominal pain, no BM, denies any N/V, patient had ERCP on 01/27 and gallstone were extracted from CBD, feeling little better today, patient had cholecystectomy on 01/28 POD# 2, patient still complaints of abdomen pain, will monitor will follow up once patient is able to tolerate PO and pain is control, will discharge patient today Time Spent with Patient Time attestation: Total time spent providing and/or coordinating discharge services: Exam Narrative: Morbidly obese Patient is comfortable, NAD HEENT: eyes are clear and none icteric LUNGS:CTA HEART: RR S1S2 ABD: BS+, Soft and diffusely tender. Lower extremities: no edema SKIN: nonjaundiced Neuro: grossly intact. DS: Data Data Completed and Pending Pending studies at discharge: Pending at discharge 01/28/25 15:50 Surgical [PTH] Routine Labs on day of discharge: Labs from last 24 hours 01/31/25 05:46 WBC 6.7 RBC 4.56 Hgb 13.6 Hct 41.1 MCV 90.1 D MCH 29.8 MCHC 33.1 RDW 12.9 Plt Count 231 MPV 10.1 Immature Gran % (Auto) 0.4 Neut % (Auto) 57.9 Lymph % (Auto) 27.8 [place] % (Auto) 7.1 Eos % (Auto) 6.4 H Baso % (Auto) 0.4 Lymph # (Auto) 1.87 [place] # (Auto) 0.5 Eos # (Auto) 0.4 H Baso # (Auto) 0.0 Abs Immat Gran (auto) 0.03 Absolute Neuts (auto) 3.9 Absolute Nucleated RBC 0.000 Nucleated RBC % 0.0 Sodium 137 Potassium 3.9 Chloride 103 Carbon Dioxide 27 Anion Gap 7 BUN 6 L Creatinine 0.57 L Estim Creat Clear Calc 129 Estimated GFR > 60 Glucose 90 Calcium 9.1 Magnesium 1.7 Total Bilirubin 0.4 AST 22 ALT 56 H Alkaline Phosphatase 82 Total Protein 6.0 L Albumin 3.5 Discharge Plan Discharge Attending physician on discharge: Aurelio Whitlock Consulting providers: Scottie Lui; Dangelo Mcduffie; Randee Gill; Carissa Jameson; Mireya Acevedo; Velasquez Steinberg; Naldo Leija; Milton Bedolla; Charlie Sanford V. Discharging Clinician: Auerlio Whitlock Patient Disposition: Home, Self-Care Activity: other - see discharge instructions Diet: low fat Wound Care Instructions: other - see discharge instructions Discharge Instructions: DISCHARGE INSTRUCTION SHEET FOR HERNIA, GALLBLADDER AND APPENDIX SURGERIES DR. MCDUFFIE PATIENT TO TAKE HOME 1. May shower, no soaking in bath x 2weeks. 2. Call office for: * Wound increasingly painful or bleeding * Vomiting * Fever of greater than 101 degrees 3. If no bowel movement for three days, take 1 oz. (30 ml) Milk of Magnesia or MiraLax 17g 1 to 2 times daily. 4. No heavy lifting > 10-15 pounds x weeks for hernia repairs and 2 weeks for laparoscopic cholecystectomy or appendectomy. 5. No driving for 3 days or while taking narcotic pain medications. 6. Ice to surgical site for 48 hours (30 min on, then 30 min off). 7. Up walking 10-30 minutes three times per day. 8. Resume previous home medications. 9. Follow-up 10-14 days in office for wound check or as previously scheduled. ([id number]) 10. Oral pain medications prescription to be sent to pharmacy. Take Tylenol 500mg every 6 hours and Ibuprofen 600mg every 6 hours for the first 2 days, then as needed. 11. NUTRITION: Start out by drinking fluids and increase your diet as tolerated. If you experience nausea, try dry toast, crackers, and 7-UP. If nausea or vomiting persists, contact your surgeon?s office. 12. Gallbladders-Low Fat Diet for 2 weeks (send care note of low fat diet) 13. Inguinal Hernias-wear scrotal support for 48 hours 14. Abdominal Hernias-if sent home with abdominal binder, wear for the first 2 weeks (may remove to shower or at night to sleep). patient to follow discharge care instruction from her surgeon and follow up as scheduled. patient to follow up with her primary care provider as soon as possible. patient is intructed if any symptoms worsen to go to nearest ER. Revised March 2019 Patient Language: Brazilian Follow-up/Referrals: Maine Maier APRN [Primary Care Provider] - Dangelo Mcduffie DO [Physician] - Call for Appointment Discharge Medications: New polyethylene glycol 3350 [Miralax] 17 gram Powder In Packet 17 g PO BID Qty: 20 0RF hydrocodone-acetaminophen 5-325 mg Tablet 1 tablet PO Q4H PRN (Reason: Pain Rated 4-6) Qty: 15 0RF pantoprazole [Protonix] 40 mg tablet,delayed release (DR/EC) 40 mg PO QAM 28 Days Qty: 28 0RF ondansetron 4 mg tablet,disintegrating 4 mg PO Q6H PRN (Reason: nausea and vomiting) Qty: 20 0RF amoxicillin-pot clavulanate [Augmentin] 500-125 mg tablet 1 tablet PO Q8H Qty: 15 0RF Continued meloxicam 15 mg tablet 15 mg PO DAILY albuterol sulfate 90 mcg/actuation HFA aerosol inhaler 1 puff INHALATION Q4-6H PRN (Reason: shortness of breath) Date of admission: 01/27/25 11:56 Primary Care Provider: Maine Maier Admitting Provider: Aurelio Whitlock Attending physician on admission: Aurelio Whitlock Condition: Stable
--- OUTSIDE RECORDS SUMMARY | 2025-02-04 05:44 | XMS_ITS | Clinical Summary ---
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
--- OUTSIDE RECORDS SUMMARY | 2025-02-04 05:44 | XMS_ITS ---
Care Plan - [facility] Created on: February 04, 2025 GONZALO COUCH : 1985 Sex: Female Author Organization [facility] Address [address] [place] [address] Phone Care Team Providers Care Field Representative Name Role Phone Unavailable Unavailable Unavailable
--- OUTSIDE RECORDS SUMMARY | 2025-02-04 05:44 | XMS_ITS ---
Author Organization [facility] Address [address] [place] [address] Phone Care Team Providers Care Germ Drier Name Role Phone Unavailable Unavailable Unavailable Plan of Treatment No Plan of Treatment Recorded Assessments Includes: Assessments for all patient encounters No Assessments Recorded Medical Equipment - Implanted Devices Includes: Current and historical Devices No Medical Equipment Recorded Medications Administered Includes: Administered Medications in patient's chart No Administered Medications Recorded Results Includes: Results from 02/05/2024 through 02/04/2025 No Results Recorded For Specified Dates History [...] Dates Guarantor Ph one IZA GONZALO Self [phone] Clinical Notes Includes: Signed Clinical Notes starting from 12/07/2022 No Clinical Notes Recorded
--- OUTSIDE RECORDS SUMMARY | 2025-02-04 05:44 | XMS_ITS | Encounter Summary ---
Author Organization [facility] Address [address] [place] [address] Care Team Providers Care Crm Specialist Name Role Phone [facility] Primary Care Provider [phone] Encounter Details Date Type Department Care Team ([facility] st Contact Info) Description 04/25/2019 Abstract SFL CONVERSION [address] [place] [address] , Generic Conversion, Social History Tobacco Use Types Packs/Day Years Used Date Smoking Tobacco: Never Assessed Comments Unknown Sex and Gender Information Value Date Recorded Sex Assigned at Not on file Legal Sex Female 8:07 PM CDT Gender Identity Female 11/27/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
--- OUTSIDE RECORDS SUMMARY | 2025-02-04 05:44 | XMS_ITS | Clinical Summary ---
Author Organization [facility] Address [address] [place] [address] Phone Care Team Providers Care Residential Real Estate Appraiser Name Role Phone Unavailable Unavailable Unavailable Reason [...] Dates Guarantor Ph one GONZALO COUCH Self [phone] Clinical Notes Includes: Clinical Notes from this encounter No Clinical Notes Recorded
== END 2025-01-31 12:45 | disposition home or self-care (01) | DRG 263 ==
PROVIDERS: Internal Medicine Gastroenterology; Nurse Practitioner Acute Care; Surgery; Admitting Provider Family Medicine; PCP Nurse Practitioner Family; Visit Provider Family Medicine
PROC: 0FC98ZZ Extirpation of Matter from Common Bile Duct, Via Natural or Artificial Opening Endoscopic (ICD-10-PCS; CPT 43260; principal; 2025-01-27 12:00)
PROC: 0FT44ZZ Resection of Gallbladder, Percutaneous Endoscopic Approach (ICD-10-PCS; CPT 47562; principal; 2025-01-28 15:00)
DX: K80.64 Calculus of gallbladder and bile duct with chronic cholecystitis without obstruction (principal); K29.80 Duodenitis without bleeding; K21.9 Gastro-esophageal reflux disease without esophagitis; K59.00 Constipation, unspecified; F17.210 Nicotine dependence, cigarettes, uncomplicated; F12.10 Cannabis abuse, uncomplicated; F15.10 Other stimulant abuse, uncomplicated; Z87.442 Personal history of urinary calculi; Z86.718 Personal history of other venous thrombosis and embolism
CPT/HCPCS: 36415; 71045; 74183; 74329; 76376; 76705; 80053; 80074; 81001; 83735; 84443; 84484; 85025; 87086; 87186; 88304; 93005; A9270; A9579; J0690; J0696; J1100; J1171; J2003; J2250; J2270; J2371; J2405; J2470; J2704; J3010; J7030; J7120; Q9966

== ENCOUNTER 2025-08-05 17:28 | Emergency (ER) | payer OTHER, SELFPAY ==
[2025-08-05 17:28] VITALS: BP 128/72; PULSE 95; RESP 16; TEMP 36.8; O2SAT 100
--- NOTE | 2025-08-05 17:38 | ED.LOWEXIN ---
HPI - Extremity Injury (Lower) General Chief Complaint: Extremity Injury, Lower Stated Complaint: left upper leg pain Time Seen by Provider: 08/05/25 17:32 Source: patient and family Mode of arrival: ambulatory Limitations: no limitations History of Present Illness HPI Narrative: this is a 40-year-old female who presents with left lateral leg pain upper leg after she got into a car and strained her leg causing pain and tenderness that she rates about 8/10 tried some dqlr-gfq-pdbucet medication with minimal relief there is no numbness or tingling no sciatic pain, and tenderness in the lateral aspect of her upper leg with palpation has good range of motion in the hip and knee. complaint: leg injury Onset (ago): hour(s) Injury: Left: thigh Type of Injury: inversion Place: street/outdoors Severity: moderate Severity scale (1-10): 8 Relieving factors: NSAID Related Data Home Medications ?Medication ?Instructions ?Recorded ?Confirmed ?Last Taken ?Type albuterol sulfate 90 mcg/actuation 1 puff inhalation Q4-6H PRN 01/26/25 02/19/25 Unknown History aerosol inhaler shortness of breath Allergies Allergy/AdvReac Type Severity Reaction Status Date / Time No Known Allergies Allergy Unknown Verified 08/05/25 17:29 Review of Systems Review of Systems: All systems reviewed & are unremarkable except as noted in HPI and below PMFSH Past Medical History Medical History Choledocholithiasis with cholecystitis Amphetamine abuse, episodic DVT (deep venous thrombosis) Adult BMI > 30 (10/17/18) Dental caries Adult general medical examination Lumbar disc disease Bronchospasm Nicotine addiction Urolithiasis Recurrent bronchospasm Surgical History Surgical History Hx laparoscopic cholecystectomy 01/28/[address] Cisneros History of partial hysterectomy History of Hx of lithotripsy History of ureter stent Social History Social History Years smoked: 5 Smoking status: Current every day smoker Second hand tobacco smoke exposure: No Additional smoking assessment comments: 3 cigarettes a day/7 years Alcohol intake: never Substance use: current Substance use type: marijuana and amphetamines Other substance usage details: Marijuana - daily, amphetamines intermittent (no use x 2-3 weeks) Do You Feel Safe in your Home?: Yes Lack of Transportation: YES Lack of Food: Sometimes True Current Housing: I Do Not Have Housing Concerned About Future Housing: No Difficulty Paying Gas/Electric Bills: No Difficulty Paying for Meds: No Currently Unemployed: No Education: High School Diploma/GED Difficulty w/ Childcare or Family Care: No Living arrangements: with family Additional living arrangements comments: MOM Spiritual care concerns: No Exam Const: General: healthy appearing and no acute distress Nutritional Appearance: well nourished Orientation/consciousness: patient oriented x3 Limitations: no limitations HENMT: Head: normal to inspection Eyes: Conjunctivae: conjunctivae normal Pupils: Equal, round and reactive pupils present EOM: EOMs intact bilaterally Neck: Neck: normal visual inspection Chest: Chest palpation & inspection: normal inspection of the chest Resp: Effort & Inspection: normal respiratory effort Auscultation: clear to auscultation bilaterally Cardio: Rate: regular rate Rhythm: regular rhythm GI: GI Palp: Yes Soft to palpation Auscultation: normal bowel sounds : General: Yes bladder normal to palpation Skin: General skin exam: normal color Rashes: no rashes Neuro: General: patient oriented x3 and moves all extremities Extrem: Other: Left upper leg pain lateral aspect with palpation Course Course Emergency Course: patient received 60mg IM Toradol and after reassessed patient's pain level has improved Vital Signs Vital signs: Vital Signs Temperature 36.8 C 08/05/25 17:28 Pulse Rate 95 08/05/25 17:28 Respiratory Rate 16 08/05/25 17:28 Blood Pressure 128/72 08/05/25 17:28 Pulse Oximetry 100 08/05/25 17:28 Oxygen Delivery Room Air 08/05/25 17:28 Temperature 36.8 C 08/05/25 17:28 Pulse Rate 95 08/05/25 17:28 Respiratory Rate 16 08/05/25 17:28 Blood Pressure 128/72 08/05/25 17:28 Pulse Oximetry 100 08/05/25 17:28 Oxygen Delivery Room Air 08/05/25 17:28 Critical Care Time Critical Care Time Critical Care Time: No Discharge Plan Discharge Clinical Impression: Muscle strain Patient Disposition: Home Condition: Stable Instructions: Antibiotic Form, Muscle Strain (ED) Additional Instructions: advised patient to take medication as prescribed follow with primary within the next 3 to 5 days, can use a warm compress to affected area. Patient Language: Nigerian Prescriptions: New tramadol 50 mg tablet 50 mg PO Q6H PRN (Reason: pain) Qty: 20 0RF No Action ibuprofen 600 mg tablet 600 mg PO Q6H PRN (Reason: pain) Qty: 20 0RF cholestyramine 4 gram powder 4 g PO TIDWMEAL Qty: 239.4 3RF albuterol sulfate 90 mcg/actuation HFA aerosol inhaler 1 puff INHALATION Q4-6H PRN (Reason: shortness of breath) hydrocodone-acetaminophen 5-325 mg Tablet 1 tablet PO Q4H PRN (Reason: Pain Rated 4-6) Qty: 15 0RF pantoprazole [Protonix] 40 mg tablet,delayed release (DR/EC) 40 mg PO QAM 28 Days Qty: 28 0RF amoxicillin-pot clavulanate [Augmentin] 500-125 mg tablet 1 tablet PO Q8H Qty: 15 0RF Follow-up/Referrals: Maine Maier APRN [Primary Care Provider, Family Practice] Time of Disposition: 17:44
[2025-08-05] MEDS: KETOROLAC (*BKC) 60 MG/2 ML VIAL IM (17:51)
--- OUTSIDE RECORDS SUMMARY | 2025-08-05 17:54 | XMS_ITS | Encounter Summary ---
Author Organization [facility] Address [address] [place] [place] [address] Care Team Providers Care Contaminated Land Consultant Name Role Phone [facility] Primary Care Provider [phone] Encounter Details Date Type Department Care Team ([facility] st Contact Info) Description 04/25/2019 Abstract SFL CONVERSION [address] [place] [address] , Generic Conversion, Social History Tobacco Use Types Packs/Day Years Used Date Smoking Tobacco: Never Assessed Comments Unknown Sex and Gender Information Value Date Recorded Sex Assigned at Not on file Legal Sex Female 8:07 PM CDT Gender Identity Female 11/27/2021 5:58 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
[2025-08-05 18:15] VITALS: BP 122/77; PULSE 91; RESP 17; TEMP 36.9; O2SAT 99
== END 2025-08-05 18:15 | disposition home or self-care (01) ==
PROVIDERS: Emergency Provider Emergency Medicine; PCP Nurse Practitioner Family
DX: S76.912A Strain of unspecified muscles, fascia and tendons at thigh level, left thigh, initial encounter (principal); F17.210 Nicotine dependence, cigarettes, uncomplicated; Z86.718 Personal history of other venous thrombosis and embolism; X58.XXXA Exposure to other specified factors, initial encounter
CPT/HCPCS: 96372; 99283; J1885